=== PATIENT | male | born 1945 | race Hispanic/Latino ===

== ENCOUNTER 2017-12-26 11:00 | Outpatient (CLI) | payer MEDICARE, OTHER ==
[2017-12-26 12:21] LABS: Blood Urea Nitrogen 12 mg/dL (9-20)
--- NOTE | 2017-12-26 16:19 | Cat Scan Report ---
FINAL REPORT EXAM: CT ABDOMEN PELVIS W CON HISTORY: COLON CANCER TECHNIQUE: CT examination of the ABDOMEN after IV contrast CT examination of the PELVIS after IV contrast PRIORS: None. FINDINGS: Degenerative change regional skeleton. No acute fracture. No CT evidence of significant osseous lesion. Left L5 spondylolysis without evidence of spondylolisthesis. No evidence of liver lesion. Nonspecific surgical clips adjacent to the posterior right liver margin. Gallbladder not visualized. Slight prominence of the common bile duct may reflect reservoir effect after cholecystectomy. Diameter 10 mm. Normal-appearing adrenals, pancreas, and spleen. Intact normal caliber abdominal aorta with moderate to severe calcified and noncalcified atherosclerotic plaque. Plaque extends into the aortic branches. Normal caliber IVC. Nonspecific, smoothly marginated, simple appearing, low density bilateral renal lesions are statistically most likely cysts. Bilateral renal hilar calcification most likely reflects atherosclerosis. Staghorn like calculus left renal lower pole measures approximately 10 x 16 mm. Nonspecific slight left hydronephrosis and left ureteral distention diffusely. No CT evidence of left ureteral calculus. No left renal excretion delay. Nonspecific trace free fluid adjacent to the posterior right liver very small fat containing umbilical hernia. No inguinal hernia. No retroperitoneal adenopathy. No mesenteric mass. Normal-appearing stomach and duodenum. No small bowel distention in the abdomen and pelvis. No pelvic free fluid. Normal-appearing rectum. No definite prostate or seminal vesicle abnormality. Nonspecific diffuse mural thickening in the urinary bladder. Moderate sigmoid diverticulosis. Slight diffuse sigmoid colon mural thickening is nonspecific. No adjacent inflammatory change. No gross ascites, free air, or colonic distention. Normal-appearing cecum, terminal ileum, and appendix. There are 2 short segments of luminal narrowing in the region the transverse colon. Proximal involvement appears to be associated with slight mural thickening and is 2.5 cm long. Distal involvement without mural thickening is 5 mm long. These may be artifact of peristalsis. Differential includes postoperative scar, inflammation, infection, and/or apple-core neoplasm. IMPRESSION: Two short segments of luminal narrowing in the transverse colon. These may be artifact of peristalsis. Proximal "lesion" appears to contain mural thickening and is 2.5 cm long. Differential includes postoperative scar, inflammation, infection, and/or apple-core neoplastic Moderate sigmoid diverticulosis. Slight diffuse mural thickening in this region may be scarring from prior diverticulitis. Differential includes slight acute diverticulitis without adjacent inflammatory change Left L5 spondylolysis without evidence of spondylolisthesis 10 x 16 mm staghorn like calculus in left renal lower pole nonspecific slight diffuse left hydronephrosis without CT evidence of ureteral calculus Slight diffuse mural thickening in urinary bladder may be from outlet obstruction. Differential includes cystitis
--- NOTE | 2017-12-26 16:26 | Cat Scan Report ---
FINAL REPORT EXAM: CT CHEST W CON HISTORY: COLON CANCER TECHNIQUE: CT examination of the chest after IV contrast PRIORS: AP CT 12/26/2017 FINDINGS: Please see same day AP CT report for abdominal findings. Normal cardiac size without pericardial effusion. Intact normal caliber thoracic aorta. Normal-appearing esophagus. No hilar mass or mediastinal adenopathy. The visible pulmonary arteries are diffusely patent. No acute fracture or significant osseous lesion. No pneumothorax or pleural effusion. No focal pulmonary consolidation. Scattered slight pulmonary emphysema. No evidence of lung nodule or mass. IMPRESSION: No evidence of acute cardiopulmonary disease or mass/adenopathy Slight pulmonary emphysema
== END 2017-12-26 11:01 | disposition home or self-care (01) ==
LOC: CT 11:00
PROVIDERS: ATTEND Internal Medicine Hematology & Oncology
DX: C18.3 Malignant neoplasm of hepatic flexure (principal); K57.90 Diverticulosis of intestine, part unspecified, without perforation or abscess without bleeding; N30.90 Cystitis, unspecified without hematuria; J43.9 Emphysema, unspecified; Z85.038 Personal history of other malignant neoplasm of large intestine; Z88.6 Allergy status to analgesic agent
CPT/HCPCS: 36415; 71260; 74177; 82565; 84520; Q9967

== ENCOUNTER 2018-03-28 06:05 | Day surgery (SDC) | payer MEDICARE, OTHER ==
[2018-03-28] MEDS ORDERED: NACL BACTERIOSTATIC INFILTRATI ONE (06:15)
[2018-03-28] MEDS ORDERED: LACTATED RINGERS 1,000 ML IV SCH (07:00)
[2018-03-28 07:02] LABS: Hematocrit 35.8 % (35.5-45.6); Hemoglobin 11.5 gm/dl (11.8-15.2); Mean Corpuscular HGB Conc 32 % (32-34); Mean Corpuscular Hemoglobin 29 pg (28-32); Mean Corpuscular Volume 91 fl (84-94); Red Blood Count 3.92 M/mm3 (3.65-5.03); Red Cell Distribution Width 29.2 % (13.2-15.2)
[2018-03-28] MEDS ORDERED: PROVENTIL IH PRN (07:12)
[2018-03-28] MEDS ORDERED: SUBLIMAZE IV PRN (07:17)
--- NOTE | 2018-03-28 07:17 | Anesthesia Consultation ---
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) COPD: Yes (daily anoro and prn albuterol) Home Oxygen Therapy: No Hx Sleep Apnea: No (ESTEFANIA PRE SCREEN HIGH RISK) - Cardiovascular System Hx Hypertension: Yes (took antihypertensives this morning) Hx Coronary Artery Disease: Yes Hx Heart Attack/AMI: No Hx Percutaneous Transluminal Coronary Angioplasty (PTCA): No Hx Cardia Arrhythmia: No - Central Nervous System Hx Neuromuscular Disorder: No (peripheral neuropathy) Hx Seizures: No CVA: No Hx Psychiatric Problems: No - Gastrointestinal Hx Gastroesophageal Reflux Disease: Yes (asymptomatic today) - Endocrine Hx Renal Disease: No Hx Liver Disease: Yes (remote hx colon cancer with liver met s/p lobectomy) Hx Non-Insulin Dependent Diabetes: Yes Hx Thyroid Disease: No - Other Systems Hx Alcohol Use: Yes (RARELY) Hx Substance Use: No Hx Cancer: Yes (hx metastatic colon ca s/p chemo. Port in left arm; not currently used) - Additional Comments Anesthesia Medical History Comments: No hx anesthetic complications. Used anoro this morning but no albuterol as he felt breathing was at baseline. Will administer albuterol neb preop.
--- NOTE | 2018-03-28 07:17 | Anesthesia Day of Surgery ---
Anesthesia Day of Surgery - Day of Surgery Patient Examined: Yes Patient H&P Reviewed: Yes Patient is NPO: Yes Beta Blockers: Yes Pulmonary Clearance: Yes
[2018-03-28] MEDS ORDERED: XYLOCAINE CARDIAC IV ONE (07:38)
[2018-03-28] MEDS ORDERED: DIPRIVAN 10 MG/ML IV ONE (07:38)
[2018-03-28] MEDS ORDERED: ZOFRAN ONE ×2 (07:38→08:42)
[2018-03-28] MEDS ORDERED: SUBLIMAZE ONE (07:38)
[2018-03-28] MEDS ORDERED: ANCEF/STERILE WATER 2 GM/20 ML IV NR (08:00)
[2018-03-28 08:19] LABS: Anisocytosis 2+; Basophils % (Manual) 0 % (0.0-1.8); Eosinophils % (Manual) 0 % (0.0-4.3); Poikilocytosis 2+; Tear Drop Cells 1+; Total Cells Counted 100
[2018-03-28 08:20] LABS: Helmet Cells Few; Hypochromasia 2+; Ovalocytes 1+; Schistocytes Rare
[2018-03-28 08:23] LABS: Dimorphic RBC Yes; Large Platelets Few; Platelet Count 139 K/mm3 (140-440); Platelet Estimate Appears Decreased
--- NOTE | 2018-03-28 08:37 | Post Operative Note ---
Date of procedure: 03/28/18 Pre-op diagnosis: L renal stone Post-op diagnosis: same Findings: as above Procedure: L ESWL Anesthesia: FERNANDO Surgeon: RICARDO OLIVIA Estimated blood loss: none Pathology: none Condition: stable Disposition: PACU
--- NOTE | 2018-03-28 08:38 | Discharge Summary ---
Short Stay Discharge Plan Activity: other (no straining ) Weight Bearing Status: Full Weight Bearing Diet: low fat, low cholesterol, low salt Special Instructions: other (inc fluids ) Follow up with: MANJINDER HANNON MD [Primary Care Provider] - 7 Days RICARDO OLIVIA MD [Staff Physician] - 7 Days
[2018-03-28] MEDS ORDERED: DECADRON ONE (08:42)
[2018-03-28] MEDS ORDERED: ROBINUL ONE (08:42)
--- NOTE | 2018-03-28 12:09 | Operative Report ---
PREOPERATIVE DIAGNOSIS: Large left renal stone. POSTOPERATIVE DIAGNOSIS: Large left renal stone. PROCEDURE: In situ left lithotripsy. SURGEON: Ehsan Phelps MD ANESTHESIA: General. FINDINGS: This gentleman has a 1.5 cm lower pole left renal stone. He now presents for lithotripsy. There is another fragment in the small luis. DESCRIPTION OF PROCEDURE: The patient was brought to the operating room and placed on the operating table. Following induction of anesthesia, stone was well localized, both in the AP and oblique images. Shocks were begun at 1 kV. Renal pause was carried out. A total of 2500 shocks were given, maximum of 8 kV. The patient tolerated the procedure well. There was definitely less density in the stone, but the stone was still quite prominent. There was no stone that was seen going down the ureter, so we decided not to place the stent. I suspect he may need percutaneous nephrolithotomy to get rid of the stone. He is 72 and he will have to decide if he wants more invasive procedures. We decided not to do cystoscopy. I had explained this to his and brought to recovery in stable condition. JOB# [id number] BEVERLY/TERRANCE
--- NOTE | 2018-03-28 12:29 | Post Anesthesia Evaluation ---
- Post Anesthesia Evaluation Patient Participated: Yes Airway Patent: Yes Stable Respiratory Function: Yes Nausea/Vomiting: No Temp > 96.8F: Yes Pain Manageable: Yes Adequeate Hydration: Yes Anesthesia Complications: No
[2018-03-28 14:17] VITALS: BP 104/58
== END 2018-03-28 06:06 | disposition home or self-care (01) ==
LOC: OR 06:05
PROVIDERS: ATTEND Urology
DX: N20.0 Calculus of kidney (principal); E11.42 Type 2 diabetes mellitus with diabetic polyneuropathy; G62.9 Polyneuropathy, unspecified; I25.10 Atherosclerotic heart disease of native coronary artery without angina pectoris; E78.00 Pure hypercholesterolemia, unspecified; I10 Essential (primary) hypertension; F17.210 Nicotine dependence, cigarettes, uncomplicated; J43.9 Emphysema, unspecified; K21.9 Gastro-esophageal reflux disease without esophagitis; Z88.5 Allergy status to narcotic agent; Z91.041 Radiographic dye allergy status; Z79.899 Other long term (current) drug therapy; Z79.82 Long term (current) use of aspirin; Z98.890 Other specified postprocedural states; Z98.49 Cataract extraction status, unspecified eye; Z79.01 Long term (current) use of anticoagulants; Z86.2 Personal history of diseases of the blood and blood-forming organs and certain disorders involving the immune mechanism; Z85.038 Personal history of other malignant neoplasm of large intestine
CPT/HCPCS: 36415; 50590; 82803; 82962; 85007; 85025; J0690; J1100; J2001; J2405; J2590; J2704; J3010; J7120

== ENCOUNTER 2019-03-03 06:45 | Inpatient (IN) | payer MEDICARE, OTHER ==
[2019-03-03] MEDS ORDERED: methylPREDNISolone Sod Succinate 125 MG/2 ML INJ IV ONE (06:51)
[2019-03-03] MEDS ORDERED: ALBUTEROL 2.5 MG/3 ML NEBU IH ONE (06:56)
[2019-03-03] MEDS ORDERED: IPRATROPIUM 0.02% NEBU 2.5 ML IH ONE (06:56)
--- NOTE | 2019-03-03 06:56 | Emergency Department Report ---
HPI - General Time Seen by Provider: 03/03/19 06:50 - HPI HPI: 73-year-old C male presents to the emergency department via EMS from home as unresponsive. EMS says that he has a elderly who was only able to provide information that he has a history of COPD and myelodysplastic syndrome. He also has a previous history of colon cancer with liver metastasis, but it is unknown whether or not this is in remission. The patient did present altered and unresponsive. However within 5 minutes of arrival the patient began talking and became more responsive, although still does display some confusion. Patient admits to having oxygen at home for his COPD but has not been using it. He is a tobacco smoker but denies any illicit drug use. Patient initially had a room air pulse ox in the 50s that went up to close to 100% with some bag valve ventilation. PCP: Dr Margaret Matthew: Dr Anaya Heme/Onc: Dr Ag DONG Past Medical Hx - Past Medical History Hx Hypertension: Yes (took antihypertensives this morning) Hx Heart Attack/AMI: No Hx Diabetes: Yes (NO MEDS) Hx GERD: Yes Hx Liver Disease: Yes (remote hx colon cancer with liver met s/p lobectomy) Hx Renal Disease: No Hx Seizures: No Hx Kidney Stones: Yes Hx COPD: Yes (daily anoro and prn albuterol) Hx HIV: No - Social History Smoking Status: Current Every Day Smoker - Medications Home Medications: Home Medications Medication Instructions Recorded Confirmed Last Taken Type Aspirin EC [Aspirin Enteric Coated 81 mg PO QDAY 08/05/15 03/03/19 10 Days Ago History TAB] ~03/18/18 Metoprolol [Lopressor] 100 mg PO DAILY 08/05/15 03/19/18 03/28/18 04:30 History Pravastatin Sodium [Pravastatin] 20 mg PO QHS 08/05/15 03/19/18 03/28/18 04:30 History amLODIPine [Norvasc] 5 mg PO DAILY 08/05/15 03/03/19 03/28/18 04:30 History ALBUTEROL Inhaler(NF) [VENTOLIN 2 puff IH QDAY PRN 03/19/18 03/03/19 Unknown History Inhaler(NF)] Fluticasone [Flonase] 1 spray NS QDAY 03/19/18 03/28/18 03/27/18 History Ubklhedr-Mcenowq-Izxi 149-Hyal 1,500 mg PO BID 03/19/18 03/03/19 10 Days Ago History [Glucosamine-Chondr Complex Tab] ~03/18/18 Multivit-Min/FA/Lycopen/Lutein 1 each PO DAILY 03/19/18 03/19/18 10 Days Ago History [Centrum Silver Tablet] ~03/18/18 Jarales-3 Fatty Acids/Fish Oil [Fish 1 each PO DAILY 03/19/18 03/19/18 10 Days Ago History Oil 1,000 mg Capsule] ~03/18/18 Umeclidinium Brm/Vilanterol Tr 1 each IH DAILY 03/19/18 03/19/18 03/28/18 04:30 History [Anoro Ellipta 62.5-25 Mcg INH] Metoprolol Succinate [Toprol Xl] 100 mg PO 03/03/19 Unknown History Multivit-Min/FA/Lycopen/Lutein 03/03/19 Unknown History [Centrum Silver Tablet] ED Review of Systems ROS: Stated complaint: GUERRERO Other details as noted in HPI Comment: All other systems reviewed and negative Constitutional: denies: chills, fever Eyes: denies: eye pain, vision change ENT: denies: ear pain, throat pain Respiratory: shortness of breath, SOB with exertion, SOB at rest, wheezing Cardiovascular: denies: chest pain, palpitations Gastrointestinal: denies: abdominal pain, vomiting Neurological: confusion. denies: headache Physical Exam - Physical Exam Physical Exam: GENERAL: The patient is ill-appearing. HENT: Normocephalic. Atraumatic. Patient has moist mucous membranes. EYES: Extraocular motions are intact. Pupils equal reactive to light bilaterally. NECK: Supple. Trachea is midline. CHEST/LUNGS: Coarse breath sounds were the chest. There is tachypnea with some accessory muscle use. There is respiratory distress noted. HEART/CARDIOVASCULAR: Regular. There is mild tachycardia. There is no murmur. ABDOMEN: Abdomen is soft, nontender. Patient has normal bowel sounds. There is no abdominal distention. SKIN: Skin is warm and dry. NEURO: Patient is awake and confused. Nonverbal. Withdraws from painful stimuli. Not following commands. MUSCULOSKELETAL: There is no tenderness or deformity. There is no evidence of acute injury. ED Course - Consultations Consultation #1: 03/03/19 08:42 I spoke to the screw driver operator on-call, Dr. Mckenzie, who is aware of the patient's ischemic changes on EKG and the elevated troponin, along with his renal insufficiency, anemia and thrombocytopenia. The cardiology service will see the patient as a consult. 03/03/19 14:32 It turns out the patient follows with Dr Ramsay of [facility]. [facility] made aware and consult switched. ED Medical Decision Making - Lab Data Result diagrams: 03/03/19 06:58 03/03/19 06:58 - EKG Data -: EKG Interpreted by Me EKG shows normal: sinus rhythm, axis, intervals, QRS complexes, ST-T waves (st depressions throughout most leads. No STEMI) Rate: tachycardia (116 bpm) - EKG Data When compared to previous EKG there are: previous EKG unavailable Interpretation: other (sinus tachycardia at 116 bpm, PVCs, ST depressions throughout most leads but no ST elevation) - Radiology Data Radiology results: report reviewed, image reviewed interpreted by me: Chest x-ray shows some pulmonary vascular congestion, bilateral basilar pleural effusions and interstitial edema. CT HEAD WITHOUT CONTRAST INDICATION / CLINICAL INFORMATION: Altered mental status.. Colon cancer. TECHNIQUE: Axial imaging performed from the skull apex through the skull base without the use of contrast. Sagittal and coronal ref ormatted images. All CT scans at this location are performed using CT dose reduction for ALARA by means of automated exposure control. COMPARISON: None available. FINDINGS: CEREBRAL PARENCHYMA: Mild cortical atrophy and nonspecific chronic white matter changes are identified which are likely appropriate for this patient's age. The easton-white interface is well-defined. No abnormal density or acute territorial infarct is identified. No evidence for brain metastasis given no IV contrast was administered. HEMORRHAGE: None. EXTRA-AXIAL SPACES: Normal in size and morphology for the patient's age. VENTRICULAR SYSTEM: Normal in size and morphology for the patient's age. MIDLINE SHIFT OR HERNIATION: None. CEREBELLUM / BRAINSTEM: No significant abnormality. CALVARIUM: No significant abnormality. ORBITS: Normal as visualized. PARANASAL SINUSES / MASTOID AIR CELLS: Normal as visualized. SOFT TISSUES of HEAD: No significant abnormality. ADDITIONAL FINDINGS: None. IMPRESSION: No acute intracranial a bnormality. Age-appropriate cortical volume loss and chronic white matter changes. - Medical Decision Making This patient originally was sent in after having an unresponsive episode and did present to the emergency department nonverbal and not following commands. However about 5 minutes into his ED course the patient became more awake, alert and oriented. He does appear to have some respiratory distress with coarse breath sounds, accessory muscle use, tachypnea. He was placed on a BiPAP which did improve his work of breathing. Chest x-ray shows some pulmonary vascular congestion, interstitial edema and some basilar pleural effusions. Patient's labs show a hemoglobin of 6.3 and thrombocytopenia consistent with his myelodysplastic syndrome. 2 units of packed red blood cells have been ordered for transfusion, however the patient has received some Lasix for some diuresis. Patient also appears to have some acute kidney injury, however the patient's says that he does have a history of some chronic kidney disease. EKG did not show any signs of ST elevation GA but he does have some global ischemia with ST depressions throughout most leads. This may be secondary to his respiratory status and previous hypoxia and his symptomatic anemia. The patient will be admitted to the hospital for further evaluation and treatment and was accepted for admission by the hospitalist service. - Differential Diagnosis MDS, Pneumonia, CHF, GA, Dysrythmia Critical Care Time: Yes Critical care time in (mins) excluding proc time.: 35 Critical care attestation.: If time is entered above; I have spent that time in minutes in the direct care of this critically ill patient, excluding procedure time. Critical care time was spent on this patient and doing his initial evaluation, multiple re- evaluations, ordering and interpretation of labs and imaging, discussion with the cardiology service, multiple discussions with the patient and his family. Critical Care Time: 35 minutes ED Disposition Clinical Impression: Symptomatic anemia, Thrombocytopenia, Anemia requiring transfusions, Elevated troponin, Abnormal ECG, Renal insufficiency Acute respiratory failure Qualifiers: Respiratory failure complication: hypoxia Qualified Code(s): J96.01 - Acute respiratory failure with hypoxia Dyspnea Qualifiers: Dyspnea type: shortness of breath Qualified Code(s): R06.02 - Shortness of breath CHF (congestive heart failure) Qualifiers: Heart failure type: unspecified Heart failure chronicity: unspecified Qualified Code(s): I50.9 - Heart failure, unspecified Disposition: 09 OP ADMIT IP TO THIS HOSP Is pt being admited?: Yes Condition: Serious Time of Disposition: 08:38
--- NOTE | 2019-03-03 07:18 | XRay Report ---
Chest single view INDICATION: Chest pain IMPRESSION: Streaky interstitial opacities are present throughout both lungs. The heart size is eva l at this time. Small bilateral pleural effusions are present. Signer Name: Jimbo Rehman MD Signed: 03/03/2019 7:14 AM Workstation Name: [id number]
[2019-03-03] MEDS ORDERED: FUROSEMIDE 20 MG/2 ML INJ IV ONE (07:28)
[2019-03-03 07:38] LABS: Hematocrit 21.1 % (35.5-45.6); Hemoglobin 6.3 gm/dl (11.8-15.2); Mean Corpuscular HGB Conc 30 % (32-34); Mean Corpuscular Volume 106 fl (84-94); Red Blood Count 1.99 M/mm3 (3.65-5.03)
[2019-03-03 07:46] LABS: Platelet Count 95 K/mm3 (140-440)
[2019-03-03] MEDS ORDERED: SODIUM CHLORIDE 0.9% 500 ML 500 ML IV ONE (07:49)
[2019-03-03 07:55] LABS: Albumin 4.2 g/dL (3.9-5); Calcium 8.7 mg/dL (8.4-10.2)
[2019-03-03 08:13] LABS: Chol/HDL Ratio 2.23 %
[2019-03-03 08:28] LABS: Anisocytosis 3+; Eosinophils % (Manual) 0 % (0.0-4.3); Poikilocytosis 2+; Total Cells Counted 100
[2019-03-03 08:29] LABS: Large Platelets Few; Ovalocytes 1+; Platelet Estimate Consistent w Auto; Schistocytes Rare; Tear Drop Cells 1+
--- NOTE | 2019-03-03 08:46 | Cat Scan Report ---
CT HEAD WITHOUT CONTRAST INDICATION / CLINICAL INFORMATION: Altered mental status.. Colon cancer. TECHNIQUE: Axial imaging performed from the skull apex through the skull base without the use of cont rast. Sagittal and coronal reformatted images. All CT scans at this location are performed using CT dose reduction for ALARA by means of automated exposure control. COMPARISON: None available. FINDINGS: CEREBRAL PARENCHYMA: Mild cortical atrophy and nonspecific chronic white matter changes are identifie d which are likely appropriate for this patient's age. The easton-white interface is well-defined. No a bnormal density or acute territorial infarct is identified. No evidence for brain metastasis given no IV contrast was administered. HEMORRHAGE: None. EXTRA-AXIAL SPACES: Normal in size and morphology for the patient's age. VENTRICULAR SYSTEM: Normal in size and morphology for the patient's age. MIDLINE SHIFT OR HERNIATION: None. CEREBELLUM / BRAINSTEM: No significant abnormality. CALVARIUM: No significant abnormality. ORBITS: Normal as visualized. PARANASAL SINUSES / MASTOID AIR CELLS: Normal as visualized. SOFT TISSUES of HEAD: No significant abnormality. ADDITIONAL FINDINGS: None. IMPRESSION: No acute intracranial abnormality. Age-appropriate cortical volume loss and chronic white matter mcfarland ges. Signer Name: Ranulfo Olvera Jr, MD Signed: 03/03/2019 8:42 AM Workstation Name: [id number]
[2019-03-03] MEDS ORDERED: SODIUM CHLORIDE 0.9% 250ML 250 ML ONE (10:57)
--- NOTE | 2019-03-03 15:13 | Consultation ---
History of Present Illness Consult date: 03/03/19 Requesting physician: DORIS WILLS Consult reason: elevated troponin, other (abn ekg) History of present illness: The pt is a 73-year-old male with a past medical history of HTN, DM, COPD (followed by Dr. Anaya), ongoing tobacco use, colon cancer with mets to liver in 2001, s/p liver resection, myelodysplastic syndrome diagnosed 1 month ago, followed by Dr. Luong. He is followed in our office by Dr. Ramsay. He presented to the emergency department via EMS from home with c/o respiratory distress. Pt has been experiencing progressively worsening SOB and wheezing for the past day. He apparently had an episode of unresponsiveness and thus EMS was called. Per ED record, the patient did present altered and unresponsive. However within 5 minutes of arrival the patient began talking and became more responsive. On eval uation, pt appears alert and oriented. Patient admits to having oxygen at home for his COPD but has not been using it. He is a tobacco smoker but denies any illicit drug use. Patient initially had a room air pulse ox in the 50s that went up to close to 100% with some bag valve ventilation. Pt is currently on O2 via venti mask. Pt denies any chest pain, palpitations, n/v, diaphoresis. He is noted to have elevated troponon and ECG with diffuse ST depressions and thus cardiology has been consulted. Labwork is significant for H/H 6.3/21.1, plt 95, elevated DDimer, BUN/Cr 30/1.8. CXR with some pulmonary edema. Head CT with NAF. Echo done 07/2010 showed EF 50-55%, mild LVH, mild MR, mild AR, trivial TR. Past History Past Medical History: other (as per HPI) Medications and Allergies Allergies Allergy/AdvReac Type Severity Reaction Status Date / Time morphine AdvReac HALLUCINATI Verified 03/19/18 16:36 ONS IVP DYE AdvReac Hives Uncoded 03/19/18 16:36 Home Medications Medication Instructions Recorded Confirmed Last Taken Type Aspirin EC [Aspirin Enteric Coated 81 mg PO QDAY 08/05/15 03/03/19 10 Days Ago History TAB] ~03/18/18 Metoprolol [Lopressor] 100 mg PO DAILY 08/05/15 03/19/18 03/28/18 04:30 History Pravastatin Sodium [Pravastatin] 20 mg PO QHS 08/05/15 03/19/18 03/28/18 04:30 History amLODIPine [Norvasc] 5 mg PO DAILY 08/05/15 03/03/19 03/28/18 04:30 History ALBUTEROL Inhaler(NF) [VENTOLIN 2 puff IH QDAY PRN 03/19/18 03/03/19 Unknown History Inhaler(NF)] Fluticasone [Flonase] 1 spray NS QDAY 03/19/18 03/28/18 03/27/18 History Dytilvuc-Mldsvir-Jjze 149-Hyal 1,500 mg PO BID 03/19/18 03/03/19 10 Days Ago History [Glucosamine-Chondr Complex Tab] ~03/18/18 Multivit-Min/FA/Lycopen/Lutein 1 each PO DAILY 03/19/18 03/19/18 10 Days Ago History [Centrum Silver Tablet] ~03/18/18 [place]-3 Fatty Acids/Fish Oil [Fish 1 each PO DAILY 03/19/18 03/19/18 10 Days Ago History Oil 1,000 mg Capsule] ~03/18/18 Umeclidinium Brm/Vilanterol Tr 1 each IH DAILY 03/19/18 03/19/18 03/28/18 04:30 History [Anoro Ellipta 62.5-25 Mcg INH] Metoprolol Succinate [Toprol Xl] 100 mg PO 03/03/19 Unknown History Multivit-Min/FA/Lycopen/Lutein 03/03/19 Unknown History [Centrum Silver Tablet] Review of Systems Constitutional: no fever, no chills, no sweats Ears, nose, mouth and throat: no ear pain, no nose pain, no sinus pressure, no sinus pain Cardiovascular: shortness of breath, dyspnea on exertion, no chest pain, no orthopnea, no palpitations, no rapid/irregular heart beat, no lightheadedness, no high blood pressure Respiratory: cough, shortness of breath, dyspnea on exertion, wheezing, no congestion, no pain on inspiration Gastrointestinal: no abdominal pain, no nausea, no vomiting, no diarrhea, no constipation, no change in bowel habits Genitourinary Male: no dysuria, no hematuria, no flank pain, no discharge, no urinary frequency, no urinary hesitancy Musculoskeletal: no neck stiffness, no neck pain Integumentary: no rash, no pruritis, no redness, no sores, no wounds Neurological: no head injury, no paralysis, no weakness, no parathesias, no numbness, no tingling, no seizures Psychiatric: no anxiety Endocrine: no cold intolerance, no heat intolerance Hematologic/Lymphatic: no easy bruising, no easy bleeding Allergic/Immunologic: no urticaria, no wheezing Physical Examination Vital Signs Pulse Resp Pulse Ox 116 H 26 H 100 03/03/19 06:50 03/03/19 06:50 03/03/19 06:50 General appearance: mild distress (sob) HEENT: Positive: PERRL, Normocephaly, Mucus Membranes Moist Neck: Positive: neck supple, trachea midline Cardiac: Positive: Reg Rate and Rhythm, S1/S2 Lungs: Positive: Decreased Breath Sounds, Wheezes, Rhonchi, Oxygen Neuro: Positive: Grossly Intact Abdomen: Negative: Tender Skin: Negative: Rash Musculoskeletal: No Pain Extremities: Present: edema (trace BLE) Results 03/03/19 06:58 03/03/19 06:58 Cardiac Enzymes 03/03/19 Range/Units 06:58 AST 55 H (5-40) units/L Lipids 03/03/19 Range/Units 06:58 Triglycerides 46 (2-149) mg/dL Cholesterol 114 (50-199) mg/dL HDL Cholesterol 51 (40-59) mg/dL Cholesterol/HDL Ratio 2.23 % CBC 03/03/19 Range/Units 06:58 WBC 5.0 (4.5-11.0) K/mm3 RBC 1.99 L (3.65-5.03) M/mm3 Hgb 6.3 L (11.8-15.2) gm/dl Hct 21.1 L (35.5-45.6) % Plt Count 95 L (140-440) K/mm3 Comprehensive Metabolic Panel 03/03/19 Range/Units 06:58 Sodium 141 (137-145) mmol/L Potassium 4.6 (3.6-5.0) mmol/L Chloride 99.6 (98-107) mmol/L Carbon Dioxide 15 L (22-30) mmol/L BUN 30 H (9-20) mg/dL Creatinine 1.8 H (0.8-1.5) mg/dL Glucose 259 H (75-100) mg/dL Calcium 8.7 (8.4-10.2) mg/dL AST 55 H (5-40) units/L ALT 36 (7-56) units/L Alkaline Phosphatase 62 (35-129) units/L Total Protein 7.0 (6.3-8.2) g/dL Albumin 4.2 (3.9-5) g/dL - Imaging and Cardiology Echo: pending, report reviewed (07/2010 showed EF 50-55%, mild LVH, mild MR, mild AR, trivial TR. ) EKG: report reviewed, image reviewed EKG interpretations - Telemetry EKG Rhythm: Sinus Rhythm - EKG Sinus rhythms and dysrhythmias: sinus rhythm Repolarization changes or abnormalities: ST or T wave suggestive of ischemia Assessment and Plan Pt is noted to have NSTEMI and abnormal ECG in setting of MDS, severe anemia, thrombocytopenia, acute HF and [place]LE. Pt denies any occurrence of chest pain. No heparin or DAPT at this time due to anemia and thrombocytopenia. Will cont to trend Kenisha, f/u ECG in AM and obtain echo. Can consider ischemic evaluation once medically stabilized and H/H improved. Initiate low dose lopressor (beta selective) and statin. Pt is receiving PRBC tx per primary. Cont with cautious diuresis in setting of ORVILLE. F/u CBC and CMP in AM. Heme/onc and nephrology have been consulted. Recommend pulmonary consultation per primary team, as well. Further recs to follow per hospital course. The patient has been seen in conjunction with Dr. Vaughn Montejo who agrees with the assessment and plan of care. - Patient Problems (1) Acute and chronic respiratory failure Current Visit: Yes Status: Acute (2) COPD (chronic obstructive pulmonary disease) Current Visit: Yes Status: Chronic (3) Symptomatic anemia Current Visit: Yes Status: Acute (4) Altered mental status Current Visit: Yes Status: Resolved (5) Thrombocytopenia Current Visit: Yes Status: Acute (6) Acute heart failure Current Visit: Yes Status: Acute (7) NSTEMI (non-ST elevated myocardial infarction) Current Visit: Yes Status: Acute (8) Abnormal ECG Current Visit: Yes Status: Acute (9) ORVILLE (acute kidney injury) Current Visit: Yes Status: Acute (10) Diabetes Current Visit: Yes Status: Chronic (11) Myelodysplastic syndrome Current Visit: Yes Status: Chronic (12) History of colon cancer Current Visit: Yes Status: Chronic (13) Tobacco use Current Visit: Yes Status: Chronic
[2019-03-03] MEDS ORDERED: ONDANSETRON 4 MG/2 ML INJ IV PRN (15:40)
[2019-03-03] MEDS ORDERED: ACETAMINOPHEN 325 MG TAB PO PRN (15:40)
--- NOTE | 2019-03-03 15:40 | History and Physical Report ---
History of Present Illness Date of examination: 03/03/19 Date of admission: 03/03/19 08:38 Chief complaint: sob History of present illness: 73-year-old male presents to the emergency department via EMS from home as unresponsive. EMS says that he has a elderly who was only able to provide information that he has a history of COPD and myelodysplastic syndrome. He also has a previous history of colon cancer with liver metastasis, but it is unknown whether or not this is in remission. The patient did present altered and unresponsive per ER physician. However within 5 minutes of arrival the patient began talking and became more responsive, although still does displayed some confusion. Upon mu eval he was awake and alert with conversational dyspnea but appropriate. Family at bedside. Patient admits to having oxygen at home for his COPD but has not been using it. He is a tobacco smoker but denies any illicit drug use. Patient initially had a room air pulse ox in the 50s that went up to close to 100% with some bag valve ventilation. He denies CP Past History Past Medical History: COPD, diabetes, GERD, hypertension, other (liver dz) Past Surgical History: No surgical history Social history: smoking Family history: no significant family history Medications and Allergies Allergies Allergy/AdvReac Type Severity Reaction Status Date / Time morphine AdvReac HALLUCINATI Verified 03/19/18 16:36 ONS IVP DYE AdvReac Hives Uncoded 03/19/18 16:36 Home Medications Medication Instructions Recorded Confirmed Last Taken Type Aspirin EC [Aspirin Enteric Coated 81 mg PO QDAY 08/05/15 03/03/19 10 Days Ago History TAB] ~03/18/18 Metoprolol [Lopressor] 100 mg PO DAILY 08/05/15 03/19/18 03/28/18 04:30 History Pravastatin Sodium [Pravastatin] 20 mg PO QHS 08/05/15 03/19/18 03/28/18 04:30 History amLODIPine [Norvasc] 5 mg PO DAILY 08/05/15 03/03/19 03/28/18 04:30 History ALBUTEROL Inhaler(NF) [VENTOLIN 2 puff IH QDAY PRN 03/19/18 03/03/19 Unknown History Inhaler(NF)] Fluticasone [Flonase] 1 spray NS QDAY 03/19/18 03/28/18 03/27/18 History Tstidvas-Kvojmbm-Wiyl 149-Hyal 1,500 mg PO BID 03/19/18 03/03/19 10 Days Ago History [Glucosamine-Chondr Complex Tab] ~03/18/18 Multivit-Min/FA/Lycopen/Lutein 1 each PO DAILY 03/19/18 03/19/18 10 Days Ago History [Centrum Silver Tablet] ~03/18/18 [place]-3 Fatty Acids/Fish Oil [Fish 1 each PO DAILY 03/19/18 03/19/18 10 Days Ago History Oil 1,000 mg Capsule] ~03/18/18 Umeclidinium Brm/Vilanterol Tr 1 each IH DAILY 03/19/18 03/19/18 03/28/18 04:30 History [Anoro Ellipta 62.5-25 Mcg INH] Metoprolol Succinate [Toprol Xl] 100 mg PO 03/03/19 Unknown History Multivit-Min/FA/Lycopen/Lutein 03/03/19 Unknown History [Centrum Silver Tablet] Review of Systems All systems: negative Exam - Constitutional Vitals: Temp Pulse Resp BP Pulse Ox 98.1 F 107 H 18 128/62 99 03/03/19 13:27 03/03/19 14:47 03/03/19 14:47 03/03/19 14:47 03/03/19 14:47 General appearance: Present: mild distress, well-nourished - EENT Eyes: Present: PERRL ENT: hearing intact, clear oral mucosa - Neck Neck: Present: supple, normal ROM - Respiratory Respiratory effort: normal Respiratory: bilateral: CTA - Cardiovascular Heart Sounds: Present: S1 & S2. Absent: rub, click - Extremities Extremities: pulses symmetrical, No edema Peripheral Pulses: within normal limits - Abdominal General gastrointestinal: Present: soft, non-tender, non-distended, normal bowel sounds Male genitourinary: Present: normal - Integumentary Integumentary: Present: clear, warm, dry - Musculoskeletal Musculoskeletal: gait normal, strength equal bilaterally - Psychiatric Psychiatric: appropriate mood/affect, intact judgment & insight - Neurologic Neurologic: CNII-XII intact, moves all extremities Results - Labs CBC & Chem 7: 03/03/19 06:58 03/03/19 06:58 Labs: Laboratory Last Values WBC 5.0 K/mm3 (4.5-11.0) 03/03/19 06:58 RBC 1.99 M/mm3 (3.65-5.03) L 03/03/19 06:58 Hgb 6.3 gm/dl (11.8-15.2) L 03/03/19 06:58 Hct 21.1 % (35.5-45.6) L 03/03/19 06:58 MCV 106 fl (84-94) H 03/03/19 06:58 MCH 31 pg (28-32) 03/03/19 06:58 MCHC 30 % (32-34) L 03/03/19 06:58 RDW 30.0 % (13.2-15.2) H 03/03/19 06:58 Plt Count 95 K/mm3 (140-440) L 03/03/19 06:58 Add Manual Diff Complete 03/03/19 06:58 Total Counted 100 03/03/19 06:58 Seg Neuts % (Manual) 66.0 % (40.0-70.0) 03/03/19 06:58 Band Neutrophils % 4.0 % 03/03/19 06:58 Lymphocytes % (Manual) 25.0 % (13.4-35.0) 03/03/19 06:58 Reactive Lymphs % (Man) 0 % 03/03/19 06:58 Monocytes % (Manual) 3.0 % (0.0-7.3) 03/03/19 06:58 Eosinophils % (Manual) 0 % (0.0-4.3) 03/03/19 06:58 Basophils % (Manual) 2.0 % (0.0-1.8) H 03/03/19 06:58 Metamyelocytes % 0 % 03/03/19 06:58 Myelocytes % 0 % 03/03/19 06:58 Promyelocytes % 0 % 03/03/19 06:58 Blast Cells % 0 % 03/03/19 06:58 Nucleated RBC % 7.0 % (0.0-0.9) H 03/03/19 06:58 Seg Neutrophils # Man 0.0 K/mm3 (1.8-7.7) L 03/03/19 06:58 Band Neutrophils # 0.0 K/mm3 03/03/19 06:58 Lymphocytes # (Manual) 0.0 K/mm3 (1.2-5.4) L 03/03/19 06:58 Abs React Lymphs (Man) 0.0 K/mm3 03/03/19 06:58 Monocytes # (Manual) 0.0 K/mm3 (0.0-0.8) 03/03/19 06:58 Eosinophils # (Manual) 0.0 K/mm3 (0.0-0.4) 03/03/19 06:58 Basophils # (Manual) 0.0 K/mm3 (0.0-0.1) 03/03/19 06:58 Metamyelocytes # 0.0 K/mm3 03/03/19 06:58 Myelocytes # 0.0 K/mm3 03/03/19 06:58 Promyelocytes # 0.0 K/mm3 03/03/19 06:58 Blast Cells # 0.0 K/mm3 03/03/19 06:58 WBC Morphology Not Reportable 03/03/19 06:58 Hypersegmented Neuts Not Reportable 03/03/19 06:58 Hyposegmented Neuts Not Reportable 03/03/19 06:58 Hypogranular Neuts Not Reportable 03/03/19 06:58 Smudge Cells Not Reportable 03/03/19 06:58 Toxic Granulation Not Reportable 03/03/19 06:58 Toxic Vacuolation Not Reportable 03/03/19 06:58 Dohle Bodies Not Reportable 03/03/19 06:58 Pelger-Huet Anomaly Not Reportable 03/03/19 06:58 Traci Rods Not Reportable 03/03/19 06:58 Platelet Estimate Consistent w auto 03/03/19 06:58 Clumped Platelets Not Reportable 03/03/19 06:58 Plt Clumps, EDTA Not Reportable 03/03/19 06:58 Large Platelets Few 03/03/19 06:58 Giant Platelets Not Reportable 03/03/19 06:58 Platelet Satelliting Not Reportable 03/03/19 06:58 Plt Morphology Comment Not Reportable 03/03/19 06:58 RBC Morphology Not Reportable 03/03/19 06:58 Dimorphic RBCs Not Reportable 03/03/19 06:58 Polychromasia Not Reportable 03/03/19 06:58 Hypochromasia Not Reportable 03/03/19 06:58 Poikilocytosis 2+ 03/03/19 06:58 Anisocytosis 3+ 03/03/19 06:58 Microcytosis Not Reportable 03/03/19 06:58 Macrocytosis Not Reportable 03/03/19 06:58 Spherocytes Not Reportable 03/03/19 06:58 Pappenheimer Bodies Not Reportable 03/03/19 06:58 Sickle Cells Not Reportable 03/03/19 06:58 Target Cells Not Reportable 03/03/19 06:58 Tear Drop Cells 1+ 03/03/19 06:58 Ovalocytes 1+ 03/03/19 06:58 Helmet Cells Not Reportable 03/03/19 06:58 [place] Bodies Not Reportable 03/03/19 06:58 [place] Rings Not Reportable 03/03/19 06:58 [place] Cells Not Reportable 03/03/19 06:58 Bite Cells Not Reportable 03/03/19 06:58 Crenated Cell Not Reportable 03/03/19 06:58 Elliptocytes 1+ 03/03/19 06:58 Acanthocytes (Spur) Not Reportable 03/03/19 06:58 Rouleaux Not Reportable 03/03/19 06:58 Hemoglobin C Crystals Not Reportable 03/03/19 06:58 Schistocytes Rare 03/03/19 06:58 Malaria parasites Not Reportable 03/03/19 06:58 Benjamin Bodies Not Reportable 03/03/19 06:58 Hem Pathologist Commnt No 03/03/19 06:58 D-Dimer 891.58 ng/mlDDU (0-234) H 03/03/19 06:58 POC ABG pH 7.072 (7.35-7.45) L 03/03/19 06:58 POC ABG pCO2 47.1 (35-45) H 03/03/19 06:58 POC ABG pO2 327 (80-105) H 03/03/19 06:58 POC ABG HCO3 13.7 (22-26 mml/L) 03/03/19 06:58 POC ABG Total CO2 15 (23-27mmol/L) 03/03/19 06:58 POC ABG O2 Sat 100 03/03/19 06:58 POC ABG Base Excess -16 ((-2) - (+3)mmol/L) 03/03/19 06:58 FiO2 100 % 03/03/19 06:58 Sodium 141 mmol/L (137-145) 03/03/19 06:58 Potassium 4.6 mmol/L (3.6-5.0) 03/03/19 06:58 Chloride 99.6 mmol/L (98-107) 03/03/19 06:58 Carbon Dioxide 15 mmol/L (22-30) L 03/03/19 06:58 Anion Gap 31 mmol/L 03/03/19 06:58 BUN 30 mg/dL (9-20) H 03/03/19 06:58 Creatinine 1.8 mg/dL (0.8-1.5) H 03/03/19 06:58 Estimated GFR 37 ml/min 03/03/19 06:58 BUN/Creatinine Ratio 17 % 03/03/19 06:58 Glucose 259 mg/dL (75-100) H 03/03/19 06:58 Calcium 8.7 mg/dL (8.4-10.2) 03/03/19 06:58 Total Bilirubin 0.90 mg/dL (0.1-1.2) 03/03/19 06:58 AST 55 units/L (5-40) H 03/03/19 06:58 ALT 36 units/L (7-56) 03/03/19 06:58 Alkaline Phosphatase 62 units/L (35-129) 03/03/19 06:58 Ammonia 30.0 umol/L (25-60) 03/03/19 06:58 Troponin T 0.118 ng/mL (0.00-0.029) H* 03/03/19 06:58 NT-Pro-B Natriuret Pep 4210 pg/mL (0-900) H 03/03/19 07:25 Total Protein 7.0 g/dL (6.3-8.2) 03/03/19 06:58 Albumin 4.2 g/dL (3.9-5) 03/03/19 06:58 Albumin/Globulin Ratio 1.5 % 03/03/19 06:58 Triglycerides 46 mg/dL (2-149) 03/03/19 06:58 Cholesterol 114 mg/dL (50-199) 03/03/19 06:58 LDL Cholesterol Direct 68 mg/dL (50-130) 03/03/19 06:58 HDL Cholesterol 51 mg/dL (40-59) 03/03/19 06:58 Cholesterol/HDL Ratio 2.23 % 03/03/19 06:58 TSH 1.590 mlU/mL (0.270-4.200) 03/03/19 06:58 Blood Type O POSITIVE 03/03/19 08:40 Antibody Screen Negative 03/03/19 08:40 Crossmatch See Detail 03/03/19 08:40 Assessment and Plan Assessment and plan: Acute hypoxic resp failure. Etiology likely sec heart failure. CXR with bilateral interstitial opacities and elevated BNP. Check Echo Elevated trop. Cards consulted. Check ECHO MDS. Pt with recent dx of MDS and is followed by Ag Godwin. Heme consult ARf. Nephrology consult Anemia. Tansfusee 2 units PRBCs
[2019-03-03] MEDS ORDERED: FUROSEMIDE 40 MG/4 ML INJ IV ONE (17:00)
[2019-03-03] MEDS: HEPARIN 5,000 UNIT/1 ML VIAL SUB-Q SCH (22:28)
[2019-03-03] MEDS: METOPROLOL TARTRATE 25 MG TAB PO SCH (22:31)
[2019-03-04 05:00] LABS: Calcium 8.3 mg/dL (8.4-10.2)
[2019-03-04] MEDS: HEPARIN 5,000 UNIT/1 ML VIAL SUB-Q SCH ×3 (08:06→22:13)
[2019-03-04 10:09] LABS: Hematocrit 22.9 % (35.5-45.6); Hemoglobin 7.6 gm/dl (11.8-15.2); Mean Corpuscular HGB Conc 33 % (32-34); Mean Corpuscular Volume 95 fl (84-94); Red Blood Count 2.43 M/mm3 (3.65-5.03); Red Cell Distribution Width 23.8 % (13.2-15.2)
[2019-03-04 10:49] LABS: Anisocytosis 2+; Band Neutrophils # (Manual) 0.1 K/mm3; Basophils % (Manual) 0 % (0.0-1.8); Eosinophils % (Manual) 0 % (0.0-4.3); Macrocytosis 1+; Ovalocytes 1+; Total Cells Counted 100
[2019-03-04 10:50] LABS: Hypochromasia 1+; Platelet Estimate Consistent w Auto; Schistocytes Rare; Tear Drop Cells Few
[2019-03-04 10:59] LABS: Platelet Count 41 K/mm3 (140-440)
[2019-03-04] MEDS: METOPROLOL TARTRATE 25 MG TAB PO SCH ×2 (11:25→22:14)
--- NOTE | 2019-03-04 13:23 | Progress Note ---
Assessment and Plan Pt's clinical presentation appears c/w NSTEMI type II in setting of MDS, severe anemia, thrombocytopenia and ORV[place]. H/H improving s/p PRBC tx. ECG this AM shows NSR, normalization of ST depressions. Pt denies any occurrence of chest pain. Echo reviewed - EF 50-55%, pseudonormalization, mild AR, mild , mod MR, mod pulm HTN. Cont present conservative cardiac management at this time. Can consider ischemic evaluation once medically stabilized and H/H improved - could be done as OP. Nephrology and heme/onc consultations pending. Recommend pulmonary consultation per primary, as well. The patient has been seen in conjunction with Dr. Vaughn Montejo who agrees with the assessment and plan of care. - Patient Problems (1) Acute and chronic respiratory failure Current Visit: Yes Status: Acute (2) COPD (chronic obstructive pulmonary disease) Current Visit: Yes Status: Chronic (3) Symptomatic anemia Current Visit: Yes Status: Acute (4) Altered mental status Current Visit: Yes Status: Resolved (5) Thrombocytopenia Current Visit: Yes Status: Acute (6) NSTEMI (non-ST elevated myocardial infarction) Current Visit: Yes Status: Acute Plan to address problem: type II (7) Abnormal ECG Current Visit: Yes Status: Acute (8) ORV[place] (acute kidney injury) Current Visit: Yes Status: Acute (9) Diabetes Current Visit: Yes Status: Chronic (10) Myelodysplastic syndrome Current Visit: Yes Status: Chronic (11) History of colon cancer Current Visit: Yes Status: Chronic (12) Tobacco use Current Visit: Yes Status: Chronic Subjective Date of service: 03/04/19 Principal diagnosis: COPD exac; resp failure; anemia; MDS; NSTEMI Interval history: pt resting in bed, states he is feeling better today. s/p PRBC tx yesterday. in ST HR 100s on tele, no current cardiac complaints. Objective Last Vital Signs Temp 97.3 F L 03/04/19 12:59 Pulse 91 H 03/04/19 12:00 Resp 24 03/04/19 12:00 BP 115/46 03/04/19 12:00 Pulse Ox 98 03/04/19 12:00 - Physical Examination General: No Apparent Distress HEENT: Positive: PERRL, Normocephaly, Mucus Membranes Moist Neck: Positive: neck supple, trachea midline Cardiac: Positive: Regular Rhythm, S1/S2 Lungs: Positive: Decreased Breath Sounds Neuro: Positive: Grossly Intact Abdomen: Negative: Tender Skin: Negative: Rash Musculoskeletal: No Pain Extremities: Present: edema (trace BLE) - Labs and Meds CBC 03/04/19 Range/Units 07:01 WBC 2.3 L (4.5-11.0) K/mm3 RBC 2.43 L (3.65-5.03) M/mm3 Hgb 7.6 L (11.8-15.2) gm/dl Hct 22.9 L (35.5-45.6) % Plt Count 41 L (140-440) K/mm3 Comprehensive Metabolic Panel 03/04/19 Range/Units 04:23 Sodium 143 (137-145) mmol/L Potassium 4.6 (3.6-5.0) mmol/L Chloride 106.7 (98-107) mmol/L Carbon Dioxide 25 D (22-30) mmol/L BUN 44 H (9-20) mg/dL Creatinine 1.8 H (0.8-1.5) mg/dL Glucose 154 H (75-100) mg/dL Calcium 8.3 L (8.4-10.2) mg/dL - Imaging and Cardiology EKG: report reviewed, image reviewed Echo: pending, report reviewed (07/2010 showed EF 50-55%, mild LVH, mild MR, mild AR, trivial TR. ) - EKG Sinus rhythms and dysrhythmias: sinus rhythm Repolarization changes or abnormalities: ST or T wave suggestive of ischemia
--- NOTE | 2019-03-04 15:16 | Consultation ---
History of Present Illness - Reason for Consult Consult date: 03/04/19 - History of Present Illness Mr. Willard is a 73yo with type II DM, hypertension, COPD, colon CA w/ mets to liver s/p resection and recent dx of MDS who presented to the ED with via EMS with difficulty breathing. Per records, patient reported a one day history of progressive worsening of SOB and wheezing. He had a period of unresponsiveness at home prompting call to EMS. In the ED, patient was initially unresponsive. However, w/in five minutes of arrival, he became more responsive and began talking. Patient reports that he was in usual state of health until 1 day prior to admission when he began experiencing intermittent episodes of left arm/shoulder associated with orthopnea and diaphoresis. He reports episodes began at appx 3am on 03/02 and lasted appx 15minutes; sx subsided after sitting upright in bed but returned. Labs in the ED were notable for BUN 30, SCr 1.8mg/dL and Hb 6.3. Additional work up notable for an elevated troponin and EKG with diffuse ST depression. Past History Past Medical History: COPD, diabetes, hypertension, other (hx of colon ca w/ liver mets s/p resection, MDS) Past Surgical History: No surgical history Social history: smoking Family history: no significant family history Medications and Allergies Allergies Allergy/AdvReac Type Severity Reaction Status Date / Time morphine AdvReac HALLUCINATI Verified 03/19/18 16:36 ONS IVP DYE AdvReac Hives Uncoded 03/19/18 16:36 Home Medications Medication Instructions Recorded Confirmed Last Taken Type Aspirin EC [Aspirin Enteric Coated 81 mg PO QDAY 08/05/15 03/03/19 10 Days Ago History TAB] ~03/18/18 Metoprolol [Lopressor] 100 mg PO DAILY 08/05/15 03/19/18 03/28/18 04:30 History Pravastatin Sodium [Pravastatin] 20 mg PO QHS 08/05/15 03/19/18 03/28/18 04:30 History amLODIPine [Norvasc] 5 mg PO DAILY 08/05/15 03/03/19 03/28/18 04:30 History ALBUTEROL Inhaler(NF) [VENTOLIN 2 puff IH QDAY PRN 03/19/18 03/03/19 Unknown History Inhaler(NF)] Fluticasone [Flonase] 1 spray NS QDAY 03/19/18 03/28/18 03/27/18 History Sfhzoxkj-Bjuyvfi-Jzlx 149-Hyal 1,500 mg PO BID 03/19/18 03/03/19 10 Days Ago History [Glucosamine-Chondr Complex Tab] ~03/18/18 Multivit-Min/FA/Lycopen/Lutein 1 each PO DAILY 03/19/18 03/19/18 10 Days Ago History [Centrum Silver Tablet] ~03/18/18 [place]-3 Fatty Acids/Fish Oil [Fish 1 each PO DAILY 03/19/18 03/19/18 10 Days Ago History Oil 1,000 mg Capsule] ~03/18/18 Umeclidinium Brm/Vilanterol Tr 1 each IH DAILY 03/19/18 03/19/18 03/28/18 04:30 History [Anoro Ellipta 62.5-25 Mcg INH] Metoprolol Succinate [Toprol Xl] 100 mg PO 03/03/19 Unknown History Multivit-Min/FA/Lycopen/Lutein 03/03/19 Unknown History [Centrum Silver Tablet] Active Meds: Active Medications Acetaminophen (Tylenol) 650 mg PO Q4H PRN PRN Reason: Pain MILD(1-3)/Fever >100.5/CUEVAS Atorvastatin Calcium (Atorvastatin) 10 mg PO QHS [facility] Last Admin: 03/03/19 22:33 Dose: 10 mg Documented by: Heparin Sodium (Porcine) (Heparin) 5,000 unit SUB-Q Q8HR [facility] Last Admin: 03/04/19 08:06 Dose: Not Given Documented by: Metoprolol Tartrate (Metoprolol) 12.5 mg PO BID [facility] Last Admin: 03/04/19 11:25 Dose: 12.5 mg Documented by: Ondansetron HCl (Zofran) 4 mg IV Q8H PRN PRN Reason: Nausea And Vomiting Sodium Chloride (Sodium Chloride Flush Syringe 10 Ml) 10 ml IV BID [facility] Last Admin: 03/04/19 11:26 Dose: 10 ml Documented by: Sodium Chloride (Sodium Chloride Flush Syringe 10 Ml) 10 ml IV PRN PRN PRN Reason: LINE FLUSH Last Admin: 03/03/19 17:48 Dose: 10 ml Documented by: Review of Systems All systems: negative Exam - Vital Signs Vital signs: Vital Signs Pulse Resp Pulse Ox 116 H 26 H 100 03/03/19 06:50 03/03/19 06:50 03/03/19 06:50 - General Appearance General appearance: well-developed, well-nourished EENT: ATNC Respiratory: Other (+rhonchi) Heart: tachycardia, S1S2 Gastrointestinal: Present: normal. Absent: tenderness, distended Integumentary: no rash, warm and dry Neurologic: no focal deficit Musculoskeletal: Present: other (no edema) Psychiatric: cooperative Results - Lab Results 03/04/19 07:01 03/04/19 04:23 Most recent lab results Calcium 8.3 mg/dL (8.4-10.2) L 03/04/19 04:23 Assessment and Plan Impression: * Nonoliguric [place] vs underlying chronic kidney disease --SCr 1.0mg/dL in Dec 2017 * NSTEMI * Acute hypoxic/hypercapnic respiratory failure * COPD * Myelodysplastic syndrome * Type II DM * Hypertension Plan: * Renal function has remained stable since admission; baseline renal function unknown; will attempt to obtain outpatient labs. * Hold diuretics today - last dose on 03/03 * Will obtain urine studies and renal ultrasound * Cardiology recommendations noted - TTE pending * Patient is followed by Dr. Lozano as an outpatient - rec pulmonary consultation * Avoid potential nephrotoxins * Dose medications for renal function * AM labs ordered
--- NOTE | 2019-03-04 16:53 | Progress Note ---
Assessment and Plan Assessment and plan: Acute hypoxic resp failure. Etiology likely sec heart failure. CXR with bilateral interstitial opacities and elevated BNP. Check Echo Elevated trop. Cards consulted. Check ECHO MDS. Pt with recent dx of MDS and is followed by [facility]. Heme consult ARf. Nephrology consult Anemia. Tansfusee 2 units PRBCs History Interval history: No new issues overnight Hospitalist Physical - Constitutional Vitals: Temp Pulse Resp BP Pulse Ox 97.6 F 101 H 14 105/64 99 03/04/19 16:00 03/04/19 14:00 03/04/19 14:00 03/04/19 14:00 03/04/19 14:18 General appearance: Present: mild distress (sob) - EENT Eyes: Present: PERRL, EOM intact ENT: hearing intact, clear oral mucosa, dentition normal - Neck Neck: Present: supple, normal ROM - Respiratory Respiratory effort: normal Respiratory: bilateral: CTA - Cardiovascular Rhythm: regular Heart Sounds: Present: S1 & S2. Absent: gallop, rub - Extremities Extremities: no ischemia, No edema, Full ROM - Abdominal General gastrointestinal: soft, non-tender, non-distended, normal bowel sounds - Integumentary Integumentary: Present: clear, warm, dry - Neurologic Neurologic: CNII-XII intact, moves all extremities Results - Labs CBC & Chem 7: 03/04/19 07:01 03/04/19 04:23 Labs: Laboratory Last Values WBC 2.3 K/mm3 (4.5-11.0) L 03/04/19 07:01 RBC 2.43 M/mm3 (3.65-5.03) L 03/04/19 07:01 Hgb 7.6 gm/dl (11.8-15.2) L 03/04/19 07:01 Hct 22.9 % (35.5-45.6) L 03/04/19 07:01 MCV 95 fl (84-94) H 03/04/19 07:01 MCH 32 pg (28-32) 03/04/19 07:01 MCHC 33 % (32-34) 03/04/19 07:01 RDW 23.8 % (13.2-15.2) H 03/04/19 07:01 Plt Count 41 K/mm3 (140-440) L 03/04/19 07:01 Add Manual Diff Complete 03/04/19 07:01 Total Counted 100 03/04/19 07:01 Seg Neuts % (Manual) 71.0 % (40.0-70.0) H 03/04/19 07:01 Band Neutrophils % 5.0 % 03/04/19 07:01 Lymphocytes % (Manual) 17.0 % (13.4-35.0) 03/04/19 07:01 Reactive Lymphs % (Man) 0 % 03/04/19 07:01 Monocytes % (Manual) 7.0 % (0.0-7.3) 03/04/19 07:01 Eosinophils % (Manual) 0 % (0.0-4.3) 03/04/19 07:01 Basophils % (Manual) 0 % (0.0-1.8) 03/04/19 07:01 Metamyelocytes % 0 % 03/04/19 07:01 Myelocytes % 0 % 03/04/19 07:01 Promyelocytes % 0 % 03/04/19 07:01 Blast Cells % 0 % 03/04/19 07:01 Nucleated RBC % 1.0 % (0.0-0.9) H 03/04/19 07:01 Seg Neutrophils # Man 1.6 K/mm3 (1.8-7.7) L 03/04/19 07:01 Band Neutrophils # 0.1 K/mm3 03/04/19 07:01 Lymphocytes # (Manual) 0.4 K/mm3 (1.2-5.4) L 03/04/19 07:01 Abs React Lymphs (Man) 0.0 K/mm3 03/04/19 07:01 Monocytes # (Manual) 0.2 K/mm3 (0.0-0.8) 03/04/19 07:01 Eosinophils # (Manual) 0.0 K/mm3 (0.0-0.4) 03/04/19 07:01 Basophils # (Manual) 0.0 K/mm3 (0.0-0.1) 03/04/19 07:01 Metamyelocytes # 0.0 K/mm3 03/04/19 07:01 Myelocytes # 0.0 K/mm3 03/04/19 07:01 Promyelocytes # 0.0 K/mm3 03/04/19 07:01 Blast Cells # 0.0 K/mm3 03/04/19 07:01 WBC Morphology Not Reportable 03/04/19 07:01 Hypersegmented Neuts Not Reportable 03/04/19 07:01 Hyposegmented Neuts Not Reportable 03/04/19 07:01 Hypogranular Neuts Not Reportable 03/04/19 07:01 Smudge Cells Not Reportable 03/04/19 07:01 Toxic Granulation Not Reportable 03/04/19 07:01 Toxic Vacuolation Not Reportable 03/04/19 07:01 Dohle Bodies Not Reportable 03/04/19 07:01 Pelger-Huet Anomaly Not Reportable 03/04/19 07:01 Traci Rods Not Reportable 03/04/19 07:01 Platelet Estimate Consistent w auto 03/04/19 07:01 Clumped Platelets Not Reportable 03/04/19 07:01 Plt Clumps, EDTA Not Reportable 03/04/19 07:01 Large Platelets Not Reportable 03/04/19 07:01 Giant Platelets Not Reportable 03/04/19 07:01 Platelet Satelliting Not Reportable 03/04/19 07:01 Plt Morphology Comment Not Reportable 03/04/19 07:01 RBC Morphology Not Reportable 03/04/19 07:01 Dimorphic RBCs Not Reportable 03/04/19 07:01 Polychromasia Few 03/04/19 07:01 Hypochromasia 1+ 03/04/19 07:01 Poikilocytosis Not Reportable 03/04/19 07:01 Anisocytosis 2+ 03/04/19 07:01 Microcytosis Not Reportable 03/04/19 07:01 Macrocytosis 1+ 03/04/19 07:01 Spherocytes Not Reportable 03/04/19 07:01 Pappenheimer Bodies Not Reportable 03/04/19 07:01 Sickle Cells Not Reportable 03/04/19 07:01 Target Cells Not Reportable 03/04/19 07:01 Tear Drop Cells Few 03/04/19 07:01 Ovalocytes 1+ 03/04/19 07:01 Helmet Cells Not Reportable 03/04/19 07:01 [place] Pillar Bodies Not Reportable 03/04/19 07:01 [place] Rings Not Reportable 03/04/19 07:01 [place] Cells Not Reportable 03/04/19 07:01 Bite Cells Not Reportable 03/04/19 07:01 Crenated Cell Not Reportable 03/04/19 07:01 Elliptocytes Not Reportable 03/04/19 07:01 Acanthocytes (Spur) Not Reportable 03/04/19 07:01 Rouleaux Not Reportable 03/04/19 07:01 Hemoglobin C Crystals Not Reportable 03/04/19 07:01 Schistocytes Rare 03/04/19 07:01 Malaria parasites Not Reportable 03/04/19 07:01 Benjamin Bodies Not Reportable 03/04/19 07:01 Hem Pathologist Commnt No 03/04/19 07:01 D-Dimer 891.58 ng/mlDDU (0-234) H 03/03/19 06:58 POC ABG pH 7.072 (7.35-7.45) L 03/03/19 06:58 POC ABG pCO2 47.1 (35-45) H 03/03/19 06:58 POC ABG pO2 327 (80-105) H 03/03/19 06:58 POC ABG HCO3 13.7 (22-26 mml/L) 03/03/19 06:58 POC ABG Total CO2 15 (23-27mmol/L) 03/03/19 06:58 POC ABG O2 Sat 100 03/03/19 06:58 POC ABG Base Excess -16 ((-2) - (+3)mmol/L) 03/03/19 06:58 FiO2 100 % 03/03/19 06:58 Sodium 143 mmol/L (137-145) 03/04/19 04:23 Potassium 4.6 mmol/L (3.6-5.0) 03/04/19 04:23 Chloride 106.7 mmol/L (98-107) 03/04/19 04:23 Carbon Dioxide 25 mmol/L (22-30) D 03/04/19 04:23 Anion Gap 16 mmol/L 03/04/19 04:23 BUN 44 mg/dL (9-20) H 03/04/19 04:23 Creatinine 1.8 mg/dL (0.8-1.5) H 03/04/19 04:23 Estimated GFR 37 ml/min 03/04/19 04:23 BUN/Creatinine Ratio 24 % 03/04/19 04:23 Glucose 154 mg/dL (75-100) H 03/04/19 04:23 Calcium 8.3 mg/dL (8.4-10.2) L 03/04/19 04:23 Total Bilirubin 0.90 mg/dL (0.1-1.2) 03/03/19 06:58 AST 55 units/L (5-40) H 03/03/19 06:58 ALT 36 units/L (7-56) 03/03/19 06:58 Alkaline Phosphatase 62 units/L (35-129) 03/03/19 06:58 Ammonia 30.0 umol/L (25-60) 03/03/19 06:58 Troponin T 1.160 ng/mL (0.00-0.029) H* 03/04/19 04:23 NT-Pro-B Natriuret Pep 4210 pg/mL (0-900) H 03/03/19 07:25 Total Protein 7.0 g/dL (6.3-8.2) 03/03/19 06:58 Albumin 4.2 g/dL (3.9-5) 03/03/19 06:58 Albumin/Globulin Ratio 1.5 % 03/03/19 06:58 Triglycerides 46 mg/dL (2-149) 03/03/19 06:58 Cholesterol 114 mg/dL (50-199) 03/03/19 06:58 LDL Cholesterol Direct 68 mg/dL (50-130) 03/03/19 06:58 HDL Cholesterol 51 mg/dL (40-59) 03/03/19 06:58 Cholesterol/HDL Ratio 2.23 % 03/03/19 06:58 TSH 1.590 mlU/mL (0.270-4.200) 03/03/19 06:58 Blood Type O POSITIVE 03/03/19 08:40 Antibody Screen Negative 03/03/19 08:40 Crossmatch See Detail 03/03/19 08:40 Active Medications - Current Medications Current Medications: Generic Name Dose Route Start Last Admin Trade Name Freq PRN Reason Stop Dose Admin Acetaminophen 650 mg 03/03/19 15:40 Tylenol PO Q4H PRN Pain MILD(1-3)/Fever >100.5/CUEVAS Atorvastatin Calcium 10 mg 03/03/19 22:00 03/03/19 22:33 Atorvastatin PO 10 mg QHS KENYETTA Administration Heparin Sodium (Porcine) 5,000 unit 03/03/19 22:00 03/04/19 08:06 Heparin SUB-Q Not Given Q8HR KENYETTA Metoprolol Tartrate 12.5 mg 03/03/19 22:00 03/04/19 11:25 Metoprolol PO 12.5 mg BID KENYETTA Administration Ondansetron HCl 4 mg 03/03/19 15:40 Zofran IV Q8H PRN Nausea And Vomiting Sodium Chloride 10 ml 03/03/19 22:00 03/04/19 11:26 Sodium Chloride Flush Syringe 10 Ml IV 10 ml BID KENYETTA Administration Sodium Chloride 10 ml 03/03/19 15:40 03/03/19 17:48 Sodium Chloride Flush Syringe 10 Ml IV 10 ml PRN PRN Administration LINE FLUSH
[2019-03-04 20:15] LABS: Bilirubin,Urine NEG (Negative); Blood,Urine SM (Negative); Color,Urine Yellow (Yellow); Mucus,Urine FEW /HPF; Urobilinogen,Urine < 2.0 mg/dL (<2.0)
[2019-03-04 20:27] LABS: Creatinine,Urine 75.4 mg/dL (0.1-20.0); Protein/Creatinine Ratio,Urine 0.33
[2019-03-05 04:15] LABS: Hematocrit 23.6 % (35.5-45.6); Hemoglobin 7.8 gm/dl (11.8-15.2); Mean Corpuscular HGB Conc 33 % (32-34); Mean Corpuscular Volume 96 fl (84-94); Red Blood Count 2.46 M/mm3 (3.65-5.03)
[2019-03-05 04:40] LABS: Calcium 8.4 mg/dL (8.4-10.2)
[2019-03-05 04:51] LABS: Platelet Count 52 K/mm3 (140-440)
[2019-03-05] MEDS: HEPARIN 5,000 UNIT/1 ML VIAL SUB-Q SCH (06:00)
[2019-03-05] MEDS: METOPROLOL TARTRATE 25 MG TAB PO SCH ×2 (09:25→21:51)
--- NOTE | 2019-03-05 12:35 | Progress Note ---
Assessment and Plan Impression: * Nonoliguric [place] vs underlying chronic kidney disease --SCr 1.0mg/dL in Dec 2017 --UPCR 330mg (Jan 2019) * NSTEMI * Acute hypoxic/hypercapnic respiratory failure * Pyruia/hematuria r/o UTI * COPD * Myelodysplastic syndrome * Type II DM * Hypertension Plan: * Renal function improved, SCr trending down; baseline renal function unknown * Renal u/s pending * Follow up on urine cx; will give Rocephin 1g IV pending results * Lasix 40mg IV x 1 dose today * Cardiology recommendations noted - TTE pending * Pulmonary consultation pending * Avoid potential nephrotoxins * Dose medications for renal function * 2g Na restricted diet * AM labs ordered * Strict I/O Subjective Date of service: 03/05/19 Principal diagnosis: COPD exac; resp failure; anemia; MDS; NSTEMI Interval history: Patient currently on 4L [place] oxygen. Complains of dysuria today. Objective - Vital Signs Vital signs: Vital Signs - 12hr 03/05/19 03/05/19 03/05/19 01:00 02:00 02:25 Temperature Pulse Rate 89 89 129 H Pulse Rate [ From Monitor] Respiratory 19 20 28 H Rate Blood Pressure 127/55 121/54 O2 Sat by Pulse 100 98 97 Oximetry 03/05/19 03/05/19 03/05/19 03:00 04:00 05:00 Temperature 97.7 F Pulse Rate 83 97 H 95 H Pulse Rate [ 110 H From Monitor] Respiratory 17 18 34 H Rate Blood Pressure 121/53 116/41 116/41 O2 Sat by Pulse 99 100 99 Oximetry 03/05/19 03/05/19 03/05/19 06:00 07:00 07:29 Temperature Pulse Rate 88 209 H 191 H Pulse Rate [ From Monitor] Respiratory 19 29 H 29 H Rate Blood Pressure 116/41 O2 Sat by Pulse 98 98 99 Oximetry 03/05/19 03/05/19 03/05/19 07:45 09:25 10:00 Temperature 98.2 F Pulse Rate 107 H Pulse Rate [ From Monitor] Respiratory Rate Blood Pressure 124/83 O2 Sat by Pulse 99 Oximetry 03/05/19 12:00 Temperature 99.0 F Pulse Rate Pulse Rate [ From Monitor] Respiratory Rate Blood Pressure O2 Sat by Pulse Oximetry - General Appearance General appearance: well-developed, well-nourished EENT: ATNC Respiratory: Present: Wheezes Cardiology: regular, S1S2 Gastrointestinal: normal, no tenderness, no distended Integumentary: no rash, warm and dry Musculoskeletal: other (no edema) Psychiatric: cooperative - Lab 03/05/19 03:42 03/05/19 03:42 Most recent lab results Calcium 8.4 mg/dL (8.4-10.2) 03/05/19 03:42 Urine Creatinine 75.4 mg/dL (0.1-20.0) H 03/04/19 19:55 Urine Sodium 45 mmol/L 03/04/19 19:55 Urine Total Protein 25 mg/dL (5-11.8) H 03/04/19 19:55 Medications & Allergies - Medications Allergies/Adverse Reactions: Allergies morphine Adverse Reaction (Verified 03/19/18 16:36) HALLUCINATIONS IVP DYE Adverse Reaction (Uncoded 03/19/18 16:36) Hives Home Medications: Home Medications Medication Instructions Recorded Confirmed Last Taken Type Aspirin EC [Aspirin Enteric Coated 81 mg PO QDAY 08/05/15 03/03/19 10 Days Ago History TAB] ~03/18/18 Metoprolol [Lopressor] 100 mg PO DAILY 08/05/15 03/19/18 03/28/18 04:30 History Pravastatin Sodium [Pravastatin] 20 mg PO QHS 08/05/15 03/19/18 03/28/18 04:30 History amLODIPine [Norvasc] 5 mg PO DAILY 08/05/15 03/03/19 03/28/18 04:30 History ALBUTEROL Inhaler(NF) [VENTOLIN 2 puff IH QDAY PRN 03/19/18 03/03/19 Unknown History Inhaler(NF)] Fluticasone [Flonase] 1 spray NS QDAY 03/19/18 03/28/18 03/27/18 History Cjexjinr-Aehfdjs-Bhex 149-Hyal 1,500 mg PO BID 03/19/18 03/03/19 10 Days Ago History [Glucosamine-Chondr Complex Tab] ~03/18/18 Multivit-Min/FA/Lycopen/Lutein 1 each PO DAILY 03/19/18 03/19/18 10 Days Ago History [Centrum Silver Tablet] ~03/18/18 [place]-3 Fatty Acids/Fish Oil [Fish 1 each PO DAILY 03/19/18 03/19/18 10 Days Ago History Oil 1,000 mg Capsule] ~03/18/18 Umeclidinium Brm/Vilanterol Tr 1 each IH DAILY 03/19/18 03/19/18 03/28/18 04:30 History [Anoro Ellipta 62.5-25 Mcg INH] Metoprolol Succinate [Toprol Xl] 100 mg PO 03/03/19 Unknown History Multivit-Min/FA/Lycopen/Lutein 03/03/19 Unknown History [Centrum Silver Tablet] Active Medications: Generic Name Dose Route Start Last Admin Trade Name Freq PRN Reason Stop Dose Admin Acetaminophen 650 mg 03/03/19 15:40 Tylenol PO Q4H PRN Pain MILD(1-3)/Fever >100.5/CUEVAS Atorvastatin Calcium 10 mg 03/03/19 22:00 03/04/19 22:19 Atorvastatin PO 10 mg QHS KENYETTA Administration Metoprolol Tartrate 12.5 mg 03/03/19 22:00 03/05/19 09:25 Metoprolol PO 12.5 mg BID KEN[place]ET[place] Administration Ondansetron HCl 4 mg 03/03/19 15:40 Zofran IV Q8H PRN Nausea And Vomiting Sodium Chloride 10 ml 03/03/19 22:00 03/05/19 09:26 Sodium Chloride Flush Syringe 10 Ml IV 10 ml BID [place] Administration Sodium Chloride 10 ml 03/03/19 15:40 03/03/19 17:48 Sodium Chloride Flush Syringe 10 Ml IV 10 ml PRN PRN Administration LINE FLUSH
[2019-03-05] MEDS ORDERED: cefTRIAXone/NS 1 GM/50 ML 1 GM/50 ML BAG IV SCH (13:00)
[2019-03-05] MEDS ORDERED: FUROSEMIDE 40 MG/4 ML INJ IV ONE (13:27)
--- NOTE | 2019-03-05 14:23 | Progress Note ---
Assessment and Plan Cont present conservative cardiac management at this time. Consider ischemic evaluation once medically stabilized as OP. The patient has been seen in conjunction with Dr. Vaughn Montejo who agrees with the assessment and plan of care. - Patient Problems (1) Acute and chronic respiratory failure Current Visit: Yes Status: Acute (2) COPD (chronic obstructive pulmonary disease) Current Visit: Yes Status: Chronic (3) Symptomatic anemia Current Visit: Yes Status: Acute (4) Altered mental status Current Visit: Yes Status: Resolved (5) Thrombocytopenia Current Visit: Yes Status: Acute (6) NSTEMI (non-ST elevated myocardial infarction) Current Visit: Yes Status: Acute Plan to address problem: type II (7) Abnormal ECG Current Visit: Yes Status: Acute (8) [place] (acute kidney injury) Current Visit: Yes Status: Acute (9) Diabetes Current Visit: Yes Status: Chronic (10) Myelodysplastic syndrome Current Visit: Yes Status: Chronic (11) History of colon cancer Current Visit: Yes Status: Chronic (12) Tobacco use Current Visit: Yes Status: Chronic Subjective Date of service: 03/05/19 Principal diagnosis: COPD exac; resp failure; anemia; MDS; NSTEMI Interval history: pt resting in bed, states he is feeling well. in ST HR 100s on tele, no current cardiac complaints. family at bedside. Objective Last Vital Signs Temp 99.0 F 03/05/19 12:00 Pulse 107 H 03/05/19 09:25 Resp 29 H 03/05/19 07:29 BP 124/83 03/05/19 09:25 Pulse Ox 99 03/05/19 10:00 - Physical Examination General: No Apparent Distress HEENT: Positive: PERRL, Normocephaly, Mucus Membranes Moist Neck: Positive: neck supple, trachea midline Cardiac: Positive: Regular Rhythm, S1/S2 Lungs: Positive: Decreased Breath Sounds, Oxygen Neuro: Positive: Grossly Intact Abdomen: Negative: Tender Skin: Negative: Rash Musculoskeletal: No Pain Extremities: Present: edema (trace BLE) - Labs and Meds CBC 03/05/19 Range/Units 03:42 WBC 2.6 L (4.5-11.0) K/mm3 RBC 2.46 L (3.65-5.03) M/mm3 Hgb 7.8 L (11.8-15.2) gm/dl Hct 23.6 L (35.5-45.6) % Plt Count 52 L (140-440) K/mm3 Comprehensive Metabolic Panel 03/05/19 Range/Units 03:42 Sodium 143 (137-145) mmol/L Potassium 4.0 (3.6-5.0) mmol/L Chloride 107.9 H (98-107) mmol/L Carbon Dioxide 23 (22-30) mmol/L BUN 47 H (9-20) mg/dL Creatinine 1.6 H (0.8-1.5) mg/dL Glucose 130 H (75-100) mg/dL Calcium 8.4 (8.4-10.2) mg/dL - Imaging and Cardiology EKG: report reviewed, image reviewed Echo: report reviewed (01/2019: EF 50-55%, pseudonormalization, mild AR, mild , mod MR, mod pulm HTN. 07/2010 showed EF 50-55%, mild LVH, mild MR, mild AR, trivial TR. ) - Telemetry EKG Rhythm: Sinus Rhythm - EKG Sinus rhythms and dysrhythmias: sinus rhythm
--- NOTE | 2019-03-05 16:35 | Consultation ---
History of Present Illness Consult date: 03/05/19 Requesting physician: JOANN ALICEA Reason for consult: COPD, hypoxemia History of present illness: 73 y/o male with known COPD, continued tobacco abuse and questionable compliance admitted with acute on chronic respiratory failure most likely secondary to pulmonary edema. Required advanced forms of oxygen delivery but now weaned down to nasal cannula and stable. Past History Past Medical History: COPD, diabetes, hypertension, other (hx of colon ca w/ liver mets s/p resection, MDS) Past Surgical History: No surgical history Social history: smoking Family history: no significant family history Medications and Allergies Allergies Allergy/AdvReac Type Severity Reaction Status Date / Time morphine AdvReac HALLUCINATI Verified 03/19/18 16:36 ONS IVP DYE AdvReac Hives Uncoded 03/19/18 16:36 Home Medications Medication Instructions Recorded Confirmed Last Taken Type Aspirin EC [Aspirin Enteric Coated 81 mg PO QDAY 08/05/15 03/03/19 10 Days Ago History TAB] ~03/18/18 Metoprolol [Lopressor] 100 mg PO DAILY 08/05/15 03/05/19 03/28/18 04:30 History Pravastatin Sodium [Pravastatin] 20 mg PO QHS 08/05/15 03/05/19 03/28/18 04:30 History amLODIPine [Norvasc] 5 mg PO DAILY 08/05/15 03/03/19 03/28/18 04:30 History ALBUTEROL Inhaler(NF) [VENTOLIN 2 puff IH QDAY PRN 03/19/18 03/03/19 Unknown History Inhaler(NF)] Fluticasone [Flonase] 1 spray NS QDAY 03/19/18 03/05/19 03/27/18 History Tgoshnde-Gujczvw-Oilp 149-Hyal 1,500 mg PO BID 03/19/18 03/03/19 10 Days Ago History [Glucosamine-Chondr Complex Tab] ~03/18/18 Multivit-Min/FA/Lycopen/Lutein 1 each PO DAILY 03/19/18 03/05/19 10 Days Ago History [Centrum Silver Tablet] ~03/18/18 [place]-3 Fatty Acids/Fish Oil [Fish 1 each PO DAILY 03/19/18 03/05/19 10 Days Ago History Oil 1,000 mg Capsule] ~03/18/18 Umeclidinium Brm/Vilanterol Tr 1 each IH DAILY 03/19/18 03/05/19 03/28/18 04:30 History [Anoro Ellipta 62.5-25 Mcg INH] Metoprolol Succinate [Toprol Xl] 100 mg PO DAILY 03/03/19 03/05/19 Unknown History Multivit-Min/FA/Lycopen/Lutein 1 each PO DAILY 03/03/19 03/05/19 Unknown History [Centrum Silver Tablet] Active Meds: Active Medications Acetaminophen (Tylenol) 650 mg PO Q4H PRN PRN Reason: Pain MILD(1-3)/Fever >100.5/CUEVAS Atorvastatin Calcium (Atorvastatin) 10 mg PO QHS [facility] Last Admin: 03/04/19 22:19 Dose: 10 mg Documented by: Ceftriaxone Sodium (Rocephin/Ns 1 Gm/50 Ml) 1 gm in 50 mls @ 100 mls/hr IV Q24H [facility] Last Infusion: 03/05/19 13:30 Dose: Infused Documented by: Metoprolol Tartrate (Metoprolol) 12.5 mg PO BID [facility] Last Admin: 03/05/19 09:25 Dose: 12.5 mg Documented by: Ondansetron HCl (Zofran) 4 mg IV Q8H PRN PRN Reason: Nausea And Vomiting Sodium Chloride (Sodium Chloride Flush Syringe 10 Ml) 10 ml IV BID [facility] Last Admin: 03/05/19 09:26 Dose: 10 ml Documented by: Sodium Chloride (Sodium Chloride Flush Syringe 10 Ml) 10 ml IV PRN PRN PRN Reason: LINE FLUSH Last Admin: 03/03/19 17:48 Dose: 10 ml Documented by: Review of Systems All systems: negative Physical Examination Vital signs: Vital Signs Pulse Resp Pulse Ox 116 H 26 H 100 03/03/19 06:50 03/03/19 06:50 03/03/19 06:50 General appearance: no acute distress, alert ENT: other (poor dentition) Neck: supple Ascultation: Bilateral: rales (at the bases) Percussion: Bilateral: not dull Tactile fremitus: Bilateral: normal Cardiovascular: regular rate and rhythm Gastrointestinal: normoactive bowel sounds Results - Laboratory Findings CBC and BMP: 03/05/19 03:42 03/05/19 03:42 ABG POC ABG pH 7.072 (7.35-7.45) L 03/03/19 06:58 POC ABG pCO2 47.1 (35-45) H 03/03/19 06:58 POC ABG pO2 327 (80-105) H 03/03/19 06:58 POC ABG HCO3 13.7 (22-26 mml/L) 03/03/19 06:58 POC ABG Total CO2 15 (23-27mmol/L) 03/03/19 06:58 POC ABG O2 Sat 100 03/03/19 06:58 PT/INR, D-dimer D-Dimer 891.58 ng/mlDDU (0-234) H 03/03/19 06:58 Abnormal lab findings: Abnormal Labs 03/03/19 03/03/19 03/03/19 06:58 06:58 06:58 WBC RBC 1.99 L Hgb 6.3 L Hct 21.1 L MCV 106 H MCHC 30 L RDW 30.0 H Plt Count 95 L Seg Neuts % (Manual) Basophils % (Manual) 2.0 H Nucleated RBC % 7.0 H Seg Neutrophils # Man 0.0 L Lymphocytes # (Manual) 0.0 L D-Dimer 891.58 H POC ABG pH POC ABG pCO2 POC ABG pO2 Chloride Carbon Dioxide 15 L BUN 30 H Creatinine 1.8 H Glucose 259 H Calcium AST 55 H Troponin T 0.118 H* NT-Pro-B Natriuret Pep Urine WBC (Auto) Urine Creatinine Urine Total Protein Crossmatch 03/03/19 03/03/19 03/03/19 06:58 07:25 08:40 WBC RBC Hgb Hct MCV MCHC RDW Plt Count Seg Neuts % (Manual) Basophils % (Manual) Nucleated RBC % Seg Neutrophils # Man Lymphocytes # (Manual) D-Dimer POC ABG pH 7.072 L POC ABG pCO2 47.1 H POC ABG pO2 327 H Chloride Carbon Dioxide BUN Creatinine Glucose Calcium AST Troponin T NT-Pro-B Natriuret Pep 4210 H Urine WBC (Auto) Urine Creatinine Urine Total Protein Crossmatch See Detail 03/03/19 03/03/19 03/04/19 14:51 18:26 04:23 WBC RBC Hgb Hct MCV MCHC RDW Plt Count Seg Neuts % (Manual) Basophils % (Manual) Nucleated RBC % Seg Neutrophils # Man Lymphocytes # (Manual) D-Dimer POC ABG pH POC ABG pCO2 POC ABG pO2 Chloride Carbon Dioxide BUN 44 H Creatinine 1.8 H Glucose 154 H Calcium 8.3 L AST Troponin T 0.579 H* D 1.150 H* D 1.160 H* NT-Pro-B Natriuret Pep Urine WBC (Auto) Urine Creatinine Urine Total Protein Crossmatch 03/04/19 03/04/19 03/04/19 07:01 19:55 19:55 WBC 2.3 L RBC 2.43 L Hgb 7.6 L Hct 22.9 L MCV 95 H MCHC RDW 23.8 H Plt Count 41 L Seg Neuts % (Manual) 71.0 H Basophils % (Manual) Nucleated RBC % 1.0 H Seg Neutrophils # Man 1.6 L Lymphocytes # (Manual) 0.4 L D-Dimer POC ABG pH POC ABG pCO2 POC ABG pO2 Chloride Carbon Dioxide BUN Creatinine Glucose Calcium AST Troponin T NT-Pro-B Natriuret Pep Urine WBC (Auto) 21.0 H Urine Creatinine 75.4 H Urine Total Protein 25 H Crossmatch 03/05/19 03/05/19 03:42 03:42 WBC 2.6 L RBC 2.46 L Hgb 7.8 L Hct 23.6 L MCV 96 H MCHC RDW 24.0 H Plt Count 52 L Seg Neuts % (Manual) Basophils % (Manual) Nucleated RBC % Seg Neutrophils # Man Lymphocytes # (Manual) D-Dimer POC ABG pH POC ABG pCO2 POC ABG pO2 Chloride 107.9 H Carbon Dioxide BUN 47 H Creatinine 1.6 H Glucose 130 H Calcium AST Troponin T NT-Pro-B Natriuret Pep Urine WBC (Auto) Urine Creatinine Urine Total Protein Crossmatch - Diagnostic Findings Chest x-ray: image reviewed (Does appear to be pulmonary edema on CXR) Assessment and Plan 73 y/o male with known COPD admitted with worsening shortness of breath, acute on chronic respiratory failure most likely secondary to pulmonary edema with low lung reserve and also pancyotopenia. 1. Do not feel in overt COPD exacerbation so no need for systemic steroids. 2. Smoking cessation counseling again at bedside 3. Has home O2 already 4. Not overly concerned about pneumonia given rapid improvement. Suggest checking calcitonin. If normal or negative, would stop abx 5. Has responded well to lasix therapy. 6. Will add PRN neb therapy.
[2019-03-05] MEDS ORDERED: ALBUTEROL 2.5 MG/3 ML NEBU IH PRN (16:38)
--- NOTE | 2019-03-05 17:00 | Ultrasound Report ---
Renal ultrasound. 03/05/2019. HISTORY: Acute renal insufficiency. FINDINGS: Right kidney measures 12.6 cm. Cortex is normal measuring 2 cm. A lower pole cyst measures 2.8 cm. Left kidney measures 11.8 cm. Cortex measures 1.3 cm. Nonobstructing stones at the lower pole measure 9 and 11 mm. Cortical echogenicity is normal. Negative for mass or obstruction. The bladder contains moderate urine. IMPRESSION: 1. Benign-appearing cyst lower pole right kidney. 2. Nonobstructing left renal stones. Signer Name: Kenny Rios MD Signed: 03/05/2019 4:56 PM Workstation Name: [id number]
--- NOTE | 2019-03-05 18:45 | Progress Note ---
Assessment and Plan Assessment and plan: Acute hypoxic resp failure. Etiology likely sec heart failure. CXR with bilateral interstitial opacities and elevated BNP. Check Echo Elevated trop. Cards consulted. Check ECHO MDS. Pt with recent dx of MDS and is followed by [facility] Godwin. Heme consult ARf. Nephrology consulted Anemia. Tansfusee 2 units PRBCs History Interval history: No new issues overnight Hospitalist Physical - Constitutional Vitals: Temp Pulse Resp BP Pulse Ox 99.2 F 90 26 H 114/49 99 03/05/19 16:00 03/05/19 18:00 03/05/19 18:00 03/05/19 18:00 03/05/19 18:00 General appearance: Present: mild distress (sob) - EENT Eyes: Present: PERRL, EOM intact ENT: hearing intact, clear oral mucosa, dentition normal - Neck Neck: Present: supple, normal ROM - Respiratory Respiratory effort: normal Respiratory: bilateral: CTA - Cardiovascular Rhythm: regular Heart Sounds: Present: S1 & S2. Absent: gallop, rub - Extremities Extremities: no ischemia, No edema, Full ROM - Abdominal General gastrointestinal: soft, non-tender, non-distended, normal bowel sounds - Integumentary Integumentary: Present: clear, warm, dry - Neurologic Neurologic: CNII-XII intact, moves all extremities Results - Labs CBC & Chem 7: 03/05/19 03:42 03/05/19 03:42 Labs: Laboratory Last Values WBC 2.6 K/mm3 (4.5-11.0) L 03/05/19 03:42 RBC 2.46 M/mm3 (3.65-5.03) L 03/05/19 03:42 Hgb 7.8 gm/dl (11.8-15.2) L 03/05/19 03:42 Hct 23.6 % (35.5-45.6) L 03/05/19 03:42 MCV 96 fl (84-94) H 03/05/19 03:42 MCH 32 pg (28-32) 03/05/19 03:42 MCHC 33 % (32-34) 03/05/19 03:42 RDW 24.0 % (13.2-15.2) H 03/05/19 03:42 Plt Count 52 K/mm3 (140-440) L 03/05/19 03:42 Add Manual Diff Complete 03/04/19 07:01 Total Counted 100 03/04/19 07:01 Seg Neuts % (Manual) 71.0 % (40.0-70.0) H 03/04/19 07:01 Band Neutrophils % 5.0 % 03/04/19 07:01 Lymphocytes % (Manual) 17.0 % (13.4-35.0) 03/04/19 07:01 Reactive Lymphs % (Man) 0 % 03/04/19 07:01 Monocytes % (Manual) 7.0 % (0.0-7.3) 03/04/19 07:01 Eosinophils % (Manual) 0 % (0.0-4.3) 03/04/19 07:01 Basophils % (Manual) 0 % (0.0-1.8) 03/04/19 07:01 Metamyelocytes % 0 % 03/04/19 07:01 Myelocytes % 0 % 03/04/19 07:01 Promyelocytes % 0 % 03/04/19 07:01 Blast Cells % 0 % 03/04/19 07:01 Nucleated RBC % 1.0 % (0.0-0.9) H 03/04/19 07:01 Seg Neutrophils # Man 1.6 K/mm3 (1.8-7.7) L 03/04/19 07:01 Band Neutrophils # 0.1 K/mm3 03/04/19 07:01 Lymphocytes # (Manual) 0.4 K/mm3 (1.2-5.4) L 03/04/19 07:01 Abs React Lymphs (Man) 0.0 K/mm3 03/04/19 07:01 Monocytes # (Manual) 0.2 K/mm3 (0.0-0.8) 03/04/19 07:01 Eosinophils # (Manual) 0.0 K/mm3 (0.0-0.4) 03/04/19 07:01 Basophils # (Manual) 0.0 K/mm3 (0.0-0.1) 03/04/19 07:01 Metamyelocytes # 0.0 K/mm3 03/04/19 07:01 Myelocytes # 0.0 K/mm3 03/04/19 07:01 Promyelocytes # 0.0 K/mm3 03/04/19 07:01 Blast Cells # 0.0 K/mm3 03/04/19 07:01 WBC Morphology Not Reportable 03/04/19 07:01 Hypersegmented Neuts Not Reportable 03/04/19 07:01 Hyposegmented Neuts Not Reportable 03/04/19 07:01 Hypogranular Neuts Not Reportable 03/04/19 07:01 Smudge Cells Not Reportable 03/04/19 07:01 Toxic Granulation Not Reportable 03/04/19 07:01 Toxic Vacuolation Not Reportable 03/04/19 07:01 Dohle Bodies Not Reportable 03/04/19 07:01 Pelger-Huet Anomaly Not Reportable 03/04/19 07:01 Traci Rods Not Reportable 03/04/19 07:01 Platelet Estimate Consistent w auto 03/04/19 07:01 Clumped Platelets Not Reportable 03/04/19 07:01 Plt Clumps, EDTA Not Reportable 03/04/19 07:01 Large Platelets Not Reportable 03/04/19 07:01 Giant Platelets Not Reportable 03/04/19 07:01 Platelet Satelliting Not Reportable 03/04/19 07:01 Plt Morphology Comment Not Reportable 03/04/19 07:01 RBC Morphology Not Reportable 03/04/19 07:01 Dimorphic RBCs Not Reportable 03/04/19 07:01 Polychromasia Few 03/04/19 07:01 Hypochromasia 1+ 03/04/19 07:01 Poikilocytosis Not Reportable 03/04/19 07:01 Anisocytosis 2+ 03/04/19 07:01 Microcytosis Not Reportable 03/04/19 07:01 Macrocytosis 1+ 03/04/19 07:01 Spherocytes Not Reportable 03/04/19 07:01 Pappenheimer Bodies Not Reportable 03/04/19 07:01 Sickle Cells Not Reportable 03/04/19 07:01 Target Cells Not Reportable 03/04/19 07:01 Tear Drop Cells Few 03/04/19 07:01 Ovalocytes 1+ 03/04/19 07:01 Helmet Cells Not Reportable 03/04/19 07:01 [place] Bodies Not Reportable 03/04/19 07:01 [place] Rings Not Reportable 03/04/19 07:01 [place] Cells Not Reportable 03/04/19 07:01 Bite Cells Not Reportable 03/04/19 07:01 Crenated Cell Not Reportable 03/04/19 07:01 Elliptocytes Not Reportable 03/04/19 07:01 Acanthocytes (Spur) Not Reportable 03/04/19 07:01 Rouleaux Not Reportable 03/04/19 07:01 Hemoglobin C Crystals Not Reportable 03/04/19 07:01 Schistocytes Rare 03/04/19 07:01 Malaria parasites Not Reportable 03/04/19 07:01 Benjamin Bodies Not Reportable 03/04/19 07:01 Hem Pathologist Commnt No 03/04/19 07:01 D-Dimer 891.58 ng/mlDDU (0-234) H 03/03/19 06:58 POC ABG pH 7.072 (7.35-7.45) L 03/03/19 06:58 POC ABG pCO2 47.1 (35-45) H 03/03/19 06:58 POC ABG pO2 327 (80-105) H 03/03/19 06:58 POC ABG HCO3 13.7 (22-26 mml/L) 03/03/19 06:58 POC ABG Total CO2 15 (23-27mmol/L) 03/03/19 06:58 POC ABG O2 Sat 100 03/03/19 06:58 POC ABG Base Excess -16 ((-2) - (+3)mmol/L) 03/03/19 06:58 FiO2 100 % 03/03/19 06:58 Sodium 143 mmol/L (137-145) 03/05/19 03:42 Potassium 4.0 mmol/L (3.6-5.0) 03/05/19 03:42 Chloride 107.9 mmol/L (98-107) H 03/05/19 03:42 Carbon Dioxide 23 mmol/L (22-30) 03/05/19 03:42 Anion Gap 16 mmol/L 03/05/19 03:42 BUN 47 mg/dL (9-20) H 03/05/19 03:42 Creatinine 1.6 mg/dL (0.8-1.5) H 03/05/19 03:42 Estimated GFR 42 ml/min 03/05/19 03:42 BUN/Creatinine Ratio 29 % 03/05/19 03:42 Glucose 130 mg/dL (75-100) H 03/05/19 03:42 Calcium 8.4 mg/dL (8.4-10.2) 03/05/19 03:42 Total Bilirubin 0.90 mg/dL (0.1-1.2) 03/03/19 06:58 AST 55 units/L (5-40) H 03/03/19 06:58 ALT 36 units/L (7-56) 03/03/19 06:58 Alkaline Phosphatase 62 units/L (35-129) 03/03/19 06:58 Ammonia 30.0 umol/L (25-60) 03/03/19 06:58 Troponin T 1.160 ng/mL (0.00-0.029) H* 03/04/19 04:23 NT-Pro-B Natriuret Pep 4210 pg/mL (0-900) H 03/03/19 07:25 Total Protein 7.0 g/dL (6.3-8.2) 03/03/19 06:58 Albumin 4.2 g/dL (3.9-5) 03/03/19 06:58 Albumin/Globulin Ratio 1.5 % 03/03/19 06:58 Triglycerides 46 mg/dL (2-149) 03/03/19 06:58 Cholesterol 114 mg/dL (50-199) 03/03/19 06:58 LDL Cholesterol Direct 68 mg/dL (50-130) 03/03/19 06:58 HDL Cholesterol 51 mg/dL (40-59) 03/03/19 06:58 Cholesterol/HDL Ratio 2.23 % 03/03/19 06:58 TSH 1.590 mlU/mL (0.270-4.200) 03/03/19 06:58 Urine Color Yellow (Yellow) 03/04/19 19:55 Urine Turbidity Clear (Clear) 03/04/19 19:55 Urine pH 5.0 (5.0-7.0) 03/04/19 19:55 Ur Specific [place] 1.014 (1.003-1.030) 03/04/19 19:55 Urine Protein 30 mg/dl mg/dL (Negative) 03/04/19 19:55 Urine Glucose (UA) Neg mg/dL (Negative) 03/04/19 19:55 Urine Ketones Neg mg/dL (Negative) 03/04/19 19:55 Urine Blood Sm (Negative) 03/04/19 19:55 Urine Nitrite Neg (Negative) 03/04/19 19:55 Urine Bilirubin Neg (Negative) 03/04/19 19:55 Urine Urobilinogen < 2.0 mg/dL (<2.0) 12 19:55 Ur Leukocyte Esterase Sm (Negative) 03/04/19 19:55 Urine WBC (Auto) 21.0 /HPF (0.0-6.0) H 03/04/19 19:55 Urine RBC (Auto) 4.0 /HPF (0.0-6.0) 03/04/19 19:55 U Epithel Cells (Auto) < 1.0 /HPF (0-13.0) 03/04/19 19:55 Urine Mucus Few /HPF 03/04/19 19:55 Urine Creatinine 75.4 mg/dL (0.1-20.0) H 03/04/19 19:55 Protein/Creatinin Ratio 0.33 03/04/19 19:55 Urine Sodium 45 mmol/L 03/04/19 19:55 Urine Total Protein 25 mg/dL (5-11.8) H 03/04/19 19:55 Blood Type O POSITIVE 03/03/19 08:40 Antibody Screen Negative 03/03/19 08:40 Crossmatch See Detail 03/03/19 08:40 Active Medications - Current Medications Current Medications: Generic Name Dose Route Start Last Admin Trade Name Freq PRN Reason Stop Dose Admin Acetaminophen 650 mg 03/03/19 15:40 Tylenol PO Q4H PRN Pain MILD(1-3)/Fever >100.5/CUEVAS Albuterol 2.5 mg 03/05/19 16:38 Proventil IH Q4HRT PRN Shortness Of Breath Atorvastatin Calcium 10 mg 03/03/19 22:00 03/04/19 22:19 Atorvastatin PO 10 mg QHS KENYETTA Administration Ceftriaxone Sodium 1 gm in 50 mls @ 100 mls/hr 03/05/19 13:00 03/05/19 13:30 Rocephin/Ns 1 Gm/50 Ml IV Infused Q24H KENYETTA Infusion Metoprolol Tartrate 12.5 mg 03/03/19 22:00 03/05/19 09:25 Metoprolol PO 12.5 mg BID KENYETTA Administration Ondansetron HCl 4 mg 03/03/19 15:40 Zofran IV Q8H PRN Nausea And Vomiting Sodium Chloride 10 ml 03/03/19 22:00 03/05/19 09:26 Sodium Chloride Flush Syringe 10 Ml IV 10 ml BID KENYETTA Administration Sodium Chloride 10 ml 03/03/19 15:40 03/03/19 17:48 Sodium Chloride Flush Syringe 10 Ml IV 10 ml PRN PRN Administration LINE FLUSH
[2019-03-06 05:04] LABS: Hematocrit 21.4 % (35.5-45.6); Mean Corpuscular HGB Conc 33 % (32-34); Mean Corpuscular Volume 96 fl (84-94); Red Blood Count 2.24 M/mm3 (3.65-5.03)
[2019-03-06 05:24] LABS: Calcium 8.2 mg/dL (8.4-10.2)
[2019-03-06 06:01] LABS: Red Cell Distribution Width 22.8 % (13.2-15.2)
[2019-03-06 06:27] LABS: Anisocytosis 1+; Basophils % (Manual) 0 % (0.0-1.8); Eosinophils % (Manual) 0 % (0.0-4.3); Platelet Estimate Consistent w Auto; Total Cells Counted 100
[2019-03-06 06:31] LABS: Platelet Count 48 K/mm3 (140-440)
[2019-03-06] MEDS ORDERED: FUROSEMIDE 40 MG/4 ML INJ IV NR (09:17)
--- NOTE | 2019-03-06 09:17 | Progress Note ---
Assessment and Plan Impression: * Nonoliguric [place] vs underlying chronic kidney disease --SCr 1.1mg/dL in Jan 2019 - per outpatient hematology labs --UPCR 330mg (Mar 2019) * NSTEMI --TTE (Mar 2019): LVEF 50-55%, mild AR, mild , mod MR, mod pulmonary HTN, no pericardial effusion * Acute hypoxic/hypercapnic respiratory failure * Pyruia/hematuria r/o UTI --Urine cx: <10k CFU * COPD * Myelodysplastic syndrome * Type II DM * Hypertension * Nephrolithiasis, non obstructing Plan: * Renal function improved, SCr trending down * Urine cx reviewed; will d/c Rocephin * Lasix 40mg IV x 1 dose again today * Will obtain CXR * Cardiology recommendations noted - TTE reviewed * Pulmonary following * Avoid potential nephrotoxins * Dose medications for renal function * 2g Na restricted diet * AM labs ordered * Strict I/O Subjective Date of service: 03/06/19 Principal diagnosis: COPD exac; resp failure; anemia; MDS; NSTEMI Interval history: Patient reports breathing is slightly improved. Required bipap overnight. Now on 3L. Previously on 4L. He complains of cough Objective - Vital Signs Vital signs: Vital Signs - 12hr 03/05/19 03/05/19 03/05/19 21:51 22:00 23:00 Temperature Pulse Rate 97 H 91 H 76 Respiratory Rate Blood Pressure 144/63 116/50 107/49 O2 Sat by Pulse 97 97 Oximetry 03/05/19 03/06/19 03/06/19 23:59 00:00 00:41 Temperature 98.5 F Pulse Rate 76 95 H Respiratory 32 H Rate Blood Pressure 104/47 107/47 O2 Sat by Pulse 94 100 Oximetry 03/06/19 03/06/19 03/06/19 01:00 02:00 03:00 Temperature Pulse Rate 75 74 73 Respiratory Rate Blood Pressure 111/50 115/49 112/40 O2 Sat by Pulse 97 97 96 Oximetry 03/06/19 03/06/19 03/06/19 04:00 05:00 06:00 Temperature 98.1 F Pulse Rate 72 75 Respiratory Rate Blood Pressure 109/52 118/48 112/41 O2 Sat by Pulse 99 95 93 Oximetry 03/06/19 07:22 Temperature Pulse Rate Respiratory Rate Blood Pressure O2 Sat by Pulse 97 Oximetry - General Appearance General appearance: well-developed, well-nourished EENT: ATNC Respiratory: Present: Wheezes Cardiology: regular, S1S2 Gastrointestinal: normal, no tenderness, no distended Integumentary: no rash, warm and dry Musculoskeletal: other (no edema) Psychiatric: cooperative - Lab 03/06/19 04:45 03/06/19 04:45 Most recent lab results Calcium 8.2 mg/dL (8.4-10.2) L 03/06/19 04:45 Urine Creatinine 75.4 mg/dL (0.1-20.0) H 03/04/19 19:55 Urine Sodium 45 mmol/L 03/04/19 19:55 Urine Total Protein 25 mg/dL (5-11.8) H 03/04/19 19:55 Medications & Allergies - Medications Allergies/Adverse Reactions: Allergies morphine Adverse Reaction (Verified 03/19/18 16:36) HALLUCINATIONS IVP DYE Adverse Reaction (Uncoded 03/19/18 16:36) Hives Home Medications: Home Medications Medication Instructions Recorded Confirmed Last Taken Type Aspirin EC [Aspirin Enteric Coated 81 mg PO QDAY 08/05/15 03/03/19 10 Days Ago History TAB] ~03/18/18 Metoprolol [Lopressor] 100 mg PO DAILY 08/05/15 03/05/19 03/28/18 04:30 History Pravastatin Sodium [Pravastatin] 20 mg PO QHS 08/05/15 03/05/19 03/28/18 04:30 History amLODIPine [Norvasc] 5 mg PO DAILY 08/05/15 03/03/19 03/28/18 04:30 History ALBUTEROL Inhaler(NF) [VENTOLIN 2 puff IH QDAY PRN 03/19/18 03/03/19 Unknown History Inhaler(NF)] Fluticasone [Flonase] 1 spray NS QDAY 03/19/18 03/05/19 03/27/18 History Pywvwgpo-Yntjhyo-Xwhh 149-Hyal 1,500 mg PO BID 03/19/18 03/03/19 10 Days Ago History [Glucosamine-Chondr Complex Tab] ~03/18/18 Multivit-Min/FA/Lycopen/Lutein 1 each PO DAILY 03/19/18 03/05/19 10 Days Ago History [Centrum Silver Tablet] ~03/18/18 [place]-3 Fatty Acids/Fish Oil [Fish 1 each PO DAILY 03/19/18 03/05/19 10 Days Ago History Oil 1,000 mg Capsule] ~03/18/18 Umeclidinium Brm/Vilanterol Tr 1 each IH DAILY 03/19/18 03/05/19 03/28/18 04:30 History [Anoro Ellipta 62.5-25 Mcg INH] Metoprolol Succinate [Toprol Xl] 100 mg PO DAILY 03/03/19 03/05/19 Unknown History Multivit-Min/FA/Lycopen/Lutein 1 each PO DAILY 03/03/19 03/05/19 Unknown History [Centrum Silver Tablet] Active Medications: Generic Name Dose Route Start Last Admin Trade Name Freq PRN Reason Stop Dose Admin Acetaminophen 650 mg 03/03/19 15:40 Tylenol PO Q4H PRN Pain MILD(1-3)/Fever >100.5/CUEVAS Albuterol 2.5 mg 03/05/19 16:38 Proventil IH Q4HRT PRN Shortness Of Breath Atorvastatin Calcium 10 mg 03/03/19 22:00 03/05/19 21:52 Atorvastatin PO 10 mg QHS KENYETTA Administration Ceftriaxone Sodium 1 gm in 50 mls @ 100 mls/hr 03/05/19 13:00 03/05/19 13:30 Rocephin/Ns 1 Gm/50 Ml IV Infused Q24H KENYETTA Infusion Metoprolol Tartrate 12.5 mg 03/03/19 22:00 03/05/19 21:51 Metoprolol PO 12.5 mg BID KENYETTA Administration Ondansetron HCl 4 mg 03/03/19 15:40 Zofran IV Q8H PRN Nausea And Vomiting Sodium Chloride 10 ml 03/03/19 22:00 03/05/19 21:53 Sodium Chloride Flush Syringe 10 Ml IV 10 ml BID KENYETTA Administration Sodium Chloride 10 ml 03/03/19 15:40 03/03/19 17:48 Sodium Chloride Flush Syringe 10 Ml IV 10 ml PRN PRN Administration LINE FLUSH
[2019-03-06] MEDS: METOPROLOL TARTRATE 25 MG TAB PO SCH ×2 (10:10→21:37)
--- NOTE | 2019-03-06 12:01 | Progress Note ---
Assessment and Plan Cont present conservative cardiac management at this time. Consider ischemic evaluation once medically stabilized as OP. Pt may tx out of IMCU to telemetry from cardiology standpoint. Await hematology consultation. The patient has been seen in conjunction with Dr. Vaughn Montejo who agrees with the assessment and plan of care. - Patient Problems (1) Acute and chronic respiratory failure Current Visit: Yes Status: Acute (2) COPD (chronic obstructive pulmonary disease) Current Visit: Yes Status: Chronic (3) Symptomatic anemia Current Visit: Yes Status: Acute (4) Altered mental status Current Visit: Yes Status: Resolved (5) Thrombocytopenia Current Visit: Yes Status: Acute (6) NSTEMI (non-ST elevated myocardial infarction) Current Visit: Yes Status: Acute (7) Abnormal ECG Current Visit: Yes Status: Acute (8) [place] (acute kidney injury) Current Visit: Yes Status: Acute (9) Diabetes Current Visit: Yes Status: Chronic (10) Myelodysplastic syndrome Current Visit: Yes Status: Chronic (11) History of colon cancer Current Visit: Yes Status: Chronic (12) Tobacco use Current Visit: Yes Status: Chronic Subjective Date of service: 03/06/19 Principal diagnosis: COPD exac; resp failure; anemia; MDS; NSTEMI Interval history: pt resting in bed, states he is feeling well. in ST HR 100s on tele, no current cardiac complaints. Objective Last Vital Signs Temp 98.1 F 03/06/19 04:00 Pulse 93 H 03/06/19 10:10 Resp 32 H 03/06/19 00:41 BP 117/43 03/06/19 10:10 Pulse Ox 97 03/06/19 07:22 - Physical Examination General: No Apparent Distress HEENT: Positive: PERRL, Normocephaly, Mucus Membranes Moist Neck: Positive: neck supple, trachea midline Cardiac: Positive: Reg Rate and Rhythm, S1/S2 Lungs: Positive: Decreased Breath Sounds Neuro: Positive: Grossly Intact Abdomen: Negative: Tender Skin: Negative: Rash Musculoskeletal: No Pain Extremities: Present: edema (trace BLE) - Labs and Meds CBC 03/06/19 Range/Units 04:45 WBC 2.0 L (4.5-11.0) K/mm3 RBC 2.24 L (3.65-5.03) M/mm3 Hgb 7.0 L (11.8-15.2) gm/dl Hct 21.4 L (35.5-45.6) % Plt Count 48 L (140-440) K/mm3 Comprehensive Metabolic Panel 03/06/19 Range/Units 04:45 Sodium 143 (137-145) mmol/L Potassium 3.7 (3.6-5.0) mmol/L Chloride 105.0 (98-107) mmol/L Carbon Dioxide 27 (22-30) mmol/L BUN 34 H (9-20) mg/dL Creatinine 1.5 (0.8-1.5) mg/dL Glucose 130 H (75-100) mg/dL Calcium 8.2 L (8.4-10.2) mg/dL - Imaging and Cardiology EKG: report reviewed, image reviewed Echo: report reviewed (01/2019: EF 50-55%, pseudonormalization, mild AR, mild , mod MR, mod pulm HTN. 07/2010 showed EF 50-55%, mild LVH, mild MR, mild AR, trivial TR. ) - EKG Sinus rhythms and dysrhythmias: sinus rhythm Repolarization changes or abnormalities: ST or T wave suggestive of ischemia
--- NOTE | 2019-03-06 15:05 | XRay Report ---
CHEST 1 VIEW INDICATION: hypoxia. COMPARISON: 03/03/2019 FINDINGS: Support devices: Left arm PICC terminates in the mid SVC. Heart: Within normal limits. Lungs/Pleura: Mild underlying emphysema is suspected. Pulmonary venous congestion has nearly resolved since the previous exam. No evidence for infiltrate, pleural fluid or pneumothorax. Additional findings: None. IMPRESSION: No acute cardiopulmonary process. Emphysematous changes. Decreased pulmonary venous congestion. Signer Name: Ranulfo Olvera Jr, MD Signed: 03/06/2019 3:00 PM Workstation Name: [id number]
--- NOTE | 2019-03-06 15:20 | Progress Note ---
Assessment and Plan 73 y/o male with known COPD admitted with worsening shortness of breath, acute on chronic respiratory failure most likely secondary to pulmonary edema with low lung reserve and also pancyotopenia. No new recommendations for today. Await Heme eval. 1. Do not feel in overt COPD exacerbation so no need for systemic steroids. 2. Smoking cessation counseling again at bedside 3. Has home O2 already 4. Not overly concerned about pneumonia given rapid improvement. Suggest checking procalcitonin. If normal or negative, would stop abx 5. Has responded well to lasix therapy. 6. Will add PRN neb therapy. Subjective Date of service: 03/06/19 Principal diagnosis: COPD exac; resp failure; anemia; MDS; NSTEMI Interval history: No acute events. Pulm status stable to improving. Objective Vital Signs - 12hr 03/06/19 03/06/19 03/06/19 04:00 05:00 06:00 Temperature 98.1 F Pulse Rate 72 75 Pulse Rate [ From Monitor] Respiratory Rate Blood Pressure 109/52 118/48 112/41 O2 Sat by Pulse 99 95 93 Oximetry 03/06/19 03/06/19 03/06/19 07:00 07:22 08:00 Temperature Pulse Rate 73 73 Pulse Rate [ 101 H From Monitor] Respiratory 18 Rate Blood Pressure 121/47 107/47 O2 Sat by Pulse 97 97 96 Oximetry 03/06/19 03/06/19 03/06/19 09:00 10:00 10:10 Temperature Pulse Rate 99 H 94 H 93 H Pulse Rate [ From Monitor] Respiratory Rate Blood Pressure 107/47 117/49 117/43 O2 Sat by Pulse 89 97 Oximetry 03/06/19 03/06/19 03/06/19 11:00 12:00 13:00 Temperature Pulse Rate 81 116 H 77 Pulse Rate [ 97 H From Monitor] Respiratory 20 Rate Blood Pressure 108/46 108/46 106/46 O2 Sat by Pulse 96 89 96 Oximetry 03/06/19 03/06/19 14:00 15:00 Temperature Pulse Rate 86 78 Pulse Rate [ From Monitor] Respiratory Rate Blood Pressure 106/46 113/44 O2 Sat by Pulse 97 99 Oximetry Constitutional: no acute distress, alert ENT: other (poor dentition) Neck: supple Ascultation: Bilateral: rales (at the bases) Percussion: Bilateral: not dull Tactile fremitus: Bilateral: normal Cardiovascular: regular rate and rhythm Gastrointestinal: normoactive bowel sounds CBC and BMP: 03/06/19 04:45 03/06/19 04:45 ABG, PT/INR, D-dimer: ABG POC ABG pH 7.072 (7.35-7.45) L 03/03/19 06:58 POC ABG pCO2 47.1 (35-45) H 03/03/19 06:58 POC ABG pO2 327 (80-105) H 03/03/19 06:58 POC ABG HCO3 13.7 (22-26 mml/L) 03/03/19 06:58 POC ABG Total CO2 15 (23-27mmol/L) 03/03/19 06:58 POC ABG O2 Sat 100 03/03/19 06:58 PT/INR, D-dimer D-Dimer 891.58 ng/mlDDU (0-234) H 03/03/19 06:58 Abnormal lab findings: Abnormal Labs 03/03/19 03/03/19 03/03/19 06:58 06:58 06:58 WBC RBC 1.99 L Hgb 6.3 L Hct 21.1 L MCV 106 H MCHC 30 L RDW 30.0 H Plt Count 95 L Seg Neuts % (Manual) Lymphocytes % (Manual) Basophils % (Manual) 2.0 H Nucleated RBC % 7.0 H Seg Neutrophils # Man 0.0 L Lymphocytes # (Manual) 0.0 L D-Dimer 891.58 H POC ABG pH POC ABG pCO2 POC ABG pO2 Chloride Carbon Dioxide 15 L BUN 30 H Creatinine 1.8 H Glucose 259 H Calcium AST 55 H Troponin T 0.118 H* NT-Pro-B Natriuret Pep Urine WBC (Auto) Urine Creatinine Urine Total Protein Crossmatch 03/03/19 03/03/19 03/03/19 06:58 07:25 08:40 WBC RBC Hgb Hct MCV MCHC RDW Plt Count Seg Neuts % (Manual) Lymphocytes % (Manual) Basophils % (Manual) Nucleated RBC % Seg Neutrophils # Man Lymphocytes # (Manual) D-Dimer POC ABG pH 7.072 L POC ABG pCO2 47.1 H POC ABG pO2 327 H Chloride Carbon Dioxide BUN Creatinine Glucose Calcium AST Troponin T NT-Pro-B Natriuret Pep 4210 H Urine WBC (Auto) Urine Creatinine Urine Total Protein Crossmatch See Detail 03/03/19 03/03/19 03/04/19 14:51 18:26 04:23 WBC RBC Hgb Hct MCV MCHC RDW Plt Count Seg Neuts % (Manual) Lymphocytes % (Manual) Basophils % (Manual) Nucleated RBC % Seg Neutrophils # Man Lymphocytes # (Manual) D-Dimer POC ABG pH POC ABG pCO2 POC ABG pO2 Chloride Carbon Dioxide BUN 44 H Creatinine 1.8 H Glucose 154 H Calcium 8.3 L AST Troponin T 0.579 H* D 1.150 H* D 1.160 H* NT-Pro-B Natriuret Pep Urine WBC (Auto) Urine Creatinine Urine Total Protein Crossmatch 03/04/19 03/04/19 03/04/19 07:01 19:55 19:55 WBC 2.3 L RBC 2.43 L Hgb 7.6 L Hct 22.9 L MCV 95 H MCHC RDW 23.8 H Plt Count 41 L Seg Neuts % (Manual) 71.0 H Lymphocytes % (Manual) Basophils % (Manual) Nucleated RBC % 1.0 H Seg Neutrophils # Man 1.6 L Lymphocytes # (Manual) 0.4 L D-Dimer POC ABG pH POC ABG pCO2 POC ABG pO2 Chloride Carbon Dioxide BUN Creatinine Glucose Calcium AST Troponin T NT-Pro-B Natriuret Pep Urine WBC (Auto) 21.0 H Urine Creatinine 75.4 H Urine Total Protein 25 H Crossmatch 03/05/19 03/05/19 03/06/19 03:42 03:42 04:45 WBC 2.6 L 2.0 L RBC 2.46 L 2.24 L Hgb 7.8 L 7.0 L Hct 23.6 L 21.4 L MCV 96 H 96 H MCHC RDW 24.0 H 22.8 H Plt Count 52 L 48 L Seg Neuts % (Manual) Lymphocytes % (Manual) 38.0 H Basophils % (Manual) Nucleated RBC % 1.0 H Seg Neutrophils # Man 1.2 L Lymphocytes # (Manual) 0.8 L D-Dimer POC ABG pH POC ABG pCO2 POC ABG pO2 Chloride 107.9 H Carbon Dioxide BUN 47 H Creatinine 1.6 H Glucose 130 H Calcium AST Troponin T NT-Pro-B Natriuret Pep Urine WBC (Auto) Urine Creatinine Urine Total Protein Crossmatch 03/06/19 04:45 WBC RBC Hgb Hct MCV MCHC RDW Plt Count Seg Neuts % (Manual) Lymphocytes % (Manual) Basophils % (Manual) Nucleated RBC % Seg Neutrophils # Man Lymphocytes # (Manual) D-Dimer POC ABG pH POC ABG pCO2 POC ABG pO2 Chloride Carbon Dioxide BUN 34 H Creatinine Glucose 130 H Calcium 8.2 L AST Troponin T NT-Pro-B Natriuret Pep Urine WBC (Auto) Urine Creatinine Urine Total Protein Crossmatch
--- NOTE | 2019-03-06 17:40 | Progress Note ---
Assessment and Plan Assessment and plan: Acute hypoxic resp failure. Etiology likely sec heart failure. CXR with bilateral interstitial opacities and elevated BNP. Check Echo Elevated trop. Cards consulted. Check ECHO MDS. Pt with recent dx of MDS and is followed by [facility]. Heme consult ARf. Nephrology consulted Anemia. Tansfusee PRBCs as needed History Interval history: No new issues overnight Hospitalist Physical - Constitutional Vitals: Temp Pulse Resp BP Pulse Ox 98.1 F 78 20 113/44 99 03/06/19 04:00 03/06/19 15:00 03/06/19 12:00 03/06/19 15:00 03/06/19 15:00 General appearance: Present: mild distress (sob) - EENT Eyes: Present: PERRL, EOM intact ENT: hearing intact, clear oral mucosa, dentition normal - Neck Neck: Present: supple, normal ROM - Respiratory Respiratory effort: normal Respiratory: bilateral: CTA - Cardiovascular Rhythm: regular Heart Sounds: Present: S1 & S2. Absent: gallop, rub - Extremities Extremities: no ischemia, No edema, Full ROM - Abdominal General gastrointestinal: soft, non-tender, non-distended, normal bowel sounds - Integumentary Integumentary: Present: clear, warm, dry - Neurologic Neurologic: CNII-XII intact, moves all extremities Results - Labs CBC & Chem 7: 03/06/19 04:45 03/06/19 04:45 Labs: Laboratory Last Values WBC 2.0 K/mm3 (4.5-11.0) L 03/06/19 04:45 RBC 2.24 M/mm3 (3.65-5.03) L 03/06/19 04:45 Hgb 7.0 gm/dl (11.8-15.2) L 03/06/19 04:45 Hct 21.4 % (35.5-45.6) L 03/06/19 04:45 MCV 96 fl (84-94) H 03/06/19 04:45 MCH 31 pg (28-32) 03/06/19 04:45 MCHC 33 % (32-34) 03/06/19 04:45 RDW 22.8 % (13.2-15.2) H 03/06/19 04:45 Plt Count 48 K/mm3 (140-440) L 03/06/19 04:45 Add Manual Diff Complete 03/06/19 04:45 Total Counted 100 03/06/19 04:45 Seg Neuts % (Manual) 59.0 % (40.0-70.0) 03/06/19 04:45 Band Neutrophils % 0 % 03/06/19 04:45 Lymphocytes % (Manual) 38.0 % (13.4-35.0) H 03/06/19 04:45 Reactive Lymphs % (Man) 0 % 03/06/19 04:45 Monocytes % (Manual) 3.0 % (0.0-7.3) 03/06/19 04:45 Eosinophils % (Manual) 0 % (0.0-4.3) 03/06/19 04:45 Basophils % (Manual) 0 % (0.0-1.8) 03/06/19 04:45 Metamyelocytes % 0 % 03/06/19 04:45 Myelocytes % 0 % 03/06/19 04:45 Promyelocytes % 0 % 03/06/19 04:45 Blast Cells % 0 % 03/06/19 04:45 Nucleated RBC % 1.0 % (0.0-0.9) H 03/06/19 04:45 Seg Neutrophils # Man 1.2 K/mm3 (1.8-7.7) L 03/06/19 04:45 Band Neutrophils # 0.0 K/mm3 03/06/19 04:45 Lymphocytes # (Manual) 0.8 K/mm3 (1.2-5.4) L 03/06/19 04:45 Abs React Lymphs (Man) 0.0 K/mm3 03/06/19 04:45 Monocytes # (Manual) 0.1 K/mm3 (0.0-0.8) 03/06/19 04:45 Eosinophils # (Manual) 0.0 K/mm3 (0.0-0.4) 03/06/19 04:45 Basophils # (Manual) 0.0 K/mm3 (0.0-0.1) 03/06/19 04:45 Metamyelocytes # 0.0 K/mm3 03/06/19 04:45 Myelocytes # 0.0 K/mm3 03/06/19 04:45 Promyelocytes # 0.0 K/mm3 03/06/19 04:45 Blast Cells # 0.0 K/mm3 03/06/19 04:45 WBC Morphology Not Reportable 03/06/19 04:45 Hypersegmented Neuts Not Reportable 03/06/19 04:45 Hyposegmented Neuts Not Reportable 03/06/19 04:45 Hypogranular Neuts Not Reportable 03/06/19 04:45 Smudge Cells Not Reportable 03/06/19 04:45 Toxic Granulation Not Reportable 03/06/19 04:45 Toxic Vacuolation Not Reportable 03/06/19 04:45 Dohle Bodies Not Reportable 03/06/19 04:45 Pelger-Huet Anomaly Not Reportable 03/06/19 04:45 Traci Rods Not Reportable 03/06/19 04:45 Platelet Estimate Consistent w auto 03/06/19 04:45 Clumped Platelets Not Reportable 03/06/19 04:45 Plt Clumps, EDTA Not Reportable 03/06/19 04:45 Large Platelets Not Reportable 03/06/19 04:45 Giant Platelets Not Reportable 03/06/19 04:45 Platelet Satelliting Not Reportable 03/06/19 04:45 Plt Morphology Comment Not Reportable 03/06/19 04:45 RBC Morphology Not Reportable 03/06/19 04:45 Dimorphic RBCs Not Reportable 03/06/19 04:45 Polychromasia Not Reportable 03/06/19 04:45 Hypochromasia Not Reportable 03/06/19 04:45 Poikilocytosis Not Reportable 03/06/19 04:45 Anisocytosis 1+ 03/06/19 04:45 Microcytosis Not Reportable 03/06/19 04:45 Macrocytosis Not Reportable 03/06/19 04:45 Spherocytes Not Reportable 03/06/19 04:45 Pappenheimer Bodies Not Reportable 03/06/19 04:45 Sickle Cells Not Reportable 03/06/19 04:45 Target Cells Not Reportable 03/06/19 04:45 Tear Drop Cells Not Reportable 03/06/19 04:45 Ovalocytes Not Reportable 03/06/19 04:45 Helmet Cells Not Reportable 03/06/19 04:45 Hazel-Geiger Bodies Not Reportable 03/06/19 04:45 [place] Rings Not Reportable 03/06/19 04:45 Jmienez Cells Not Reportable 03/06/19 04:45 Bite Cells Not Reportable 03/06/19 04:45 Crenated Cell Not Reportable 03/06/19 04:45 Elliptocytes Not Reportable 03/06/19 04:45 Acanthocytes (Spur) Not Reportable 03/06/19 04:45 Rouleaux Not Reportable 03/06/19 04:45 Hemoglobin C Crystals Not Reportable 03/06/19 04:45 Schistocytes Not Reportable 03/06/19 04:45 Malaria parasites Not Reportable 03/06/19 04:45 Benjamin Bodies Not Reportable 03/06/19 04:45 Hem Pathologist Commnt No 03/06/19 04:45 D-Dimer 891.58 ng/mlDDU (0-234) H 03/03/19 06:58 POC ABG pH 7.072 (7.35-7.45) L 03/03/19 06:58 POC ABG pCO2 47.1 (35-45) H 03/03/19 06:58 POC ABG pO2 327 (80-105) H 03/03/19 06:58 POC ABG HCO3 13.7 (22-26 mml/L) 03/03/19 06:58 POC ABG Total CO2 15 (23-27mmol/L) 03/03/19 06:58 POC ABG O2 Sat 100 03/03/19 06:58 POC ABG Base Excess -16 ((-2) - (+3)mmol/L) 03/03/19 06:58 FiO2 100 % 03/03/19 06:58 Sodium 143 mmol/L (137-145) 03/06/19 04:45 Potassium 3.7 mmol/L (3.6-5.0) 03/06/19 04:45 Chloride 105.0 mmol/L (98-107) 03/06/19 04:45 Carbon Dioxide 27 mmol/L (22-30) 03/06/19 04:45 Anion Gap 15 mmol/L 03/06/19 04:45 BUN 34 mg/dL (9-20) H 03/06/19 04:45 Creatinine 1.5 mg/dL (0.8-1.5) 03/06/19 04:45 Estimated GFR 46 ml/min 03/06/19 04:45 BUN/Creatinine Ratio 23 % 03/06/19 04:45 Glucose 130 mg/dL (75-100) H 03/06/19 04:45 Calcium 8.2 mg/dL (8.4-10.2) L 03/06/19 04:45 Total Bilirubin 0.90 mg/dL (0.1-1.2) 03/03/19 06:58 AST 55 units/L (5-40) H 03/03/19 06:58 ALT 36 units/L (7-56) 03/03/19 06:58 Alkaline Phosphatase 62 units/L (35-129) 03/03/19 06:58 Ammonia 30.0 umol/L (25-60) 03/03/19 06:58 Troponin T 1.160 ng/mL (0.00-0.029) H* 03/04/19 04:23 NT-Pro-B Natriuret Pep 4210 pg/mL (0-900) H 03/03/19 07:25 Total Protein 7.0 g/dL (6.3-8.2) 03/03/19 06:58 Albumin 4.2 g/dL (3.9-5) 03/03/19 06:58 Albumin/Globulin Ratio 1.5 % 03/03/19 06:58 Triglycerides 46 mg/dL (2-149) 03/03/19 06:58 Cholesterol 114 mg/dL (50-199) 03/03/19 06:58 LDL Cholesterol Direct 68 mg/dL (50-130) 03/03/19 06:58 HDL Cholesterol 51 mg/dL (40-59) 03/03/19 06:58 Cholesterol/HDL Ratio 2.23 % 03/03/19 06:58 TSH 1.590 mlU/mL (0.270-4.200) 03/03/19 06:58 Urine Color Yellow (Yellow) 03/04/19 19:55 Urine Turbidity Clear (Clear) 03/04/19 19:55 Urine pH 5.0 (5.0-7.0) 03/04/19 19:55 Ur Specific [place] 1.014 (1.003-1.030) 03/04/19 19:55 Urine Protein 30 mg/dl mg/dL (Negative) 03/04/19 19:55 Urine Glucose (UA) Neg mg/dL (Negative) 03/04/19 19:55 Urine Ketones Neg mg/dL (Negative) 03/04/19 19:55 Urine Blood Sm (Negative) 03/04/19 19:55 Urine Nitrite Neg (Negative) 03/04/19 19:55 Urine Bilirubin Neg (Negative) 03/04/19 19:55 Urine Urobilinogen < 2.0 mg/dL (<2.0) 03/04/19 19:55 Ur Leukocyte Esterase Sm (Negative) 03/04/19 19:55 Urine WBC (Auto) 21.0 /HPF (0.0-6.0) H 03/04/19 19:55 Urine RBC (Auto) 4.0 /HPF (0.0-6.0) 03/04/19 19:55 U Epithel Cells (Auto) < 1.0 /HPF (0-13.0) 03/04/19 19:55 Urine Mucus Few /HPF 03/04/19 19:55 Urine Creatinine 75.4 mg/dL (0.1-20.0) H 03/04/19 19:55 Protein/Creatinin Ratio 0.33 03/04/19 19:55 Urine Sodium 45 mmol/L 03/04/19 19:55 Urine Total Protein 25 mg/dL (5-11.8) H 03/04/19 19:55 Blood Type O POSITIVE 03/03/19 08:40 Antibody Screen Negative 03/03/19 08:40 Crossmatch See Detail 03/03/19 08:40 Active Medications - Current Medications Current Medications: Generic Name Dose Route Start Last Admin Trade Name Freq PRN Reason Stop Dose Admin Acetaminophen 650 mg 03/03/19 15:40 Tylenol PO Q4H PRN Pain MILD(1-3)/Fever >100.5/CUEVAS Albuterol 2.5 mg 03/05/19 16:38 Proventil IH Q4HRT PRN Shortness Of Breath Atorvastatin Calcium 10 mg 03/03/19 22:00 03/05/19 21:52 Atorvastatin PO 10 mg QHS KENYETTA Administration Metoprolol Tartrate 12.5 mg 03/03/19 22:00 03/06/19 10:10 Metoprolol PO 12.5 mg BID KENYETTA Administration Ondansetron HCl 4 mg 03/03/19 15:40 Zofran IV Q8H PRN Nausea And Vomiting Sodium Chloride 10 ml 03/03/19 22:00 03/06/19 10:11 Sodium Chloride Flush Syringe 10 Ml IV 10 ml BID KENYETTA Administration Sodium Chloride 10 ml 03/03/19 15:40 03/03/19 17:48 Sodium Chloride Flush Syringe 10 Ml IV 10 ml PRN PRN Administration LINE FLUSH
[2019-03-07 08:22] LABS: Hematocrit 21.3 % (35.5-45.6); Hemoglobin 7.3 gm/dl (11.8-15.2); Mean Corpuscular HGB Conc 34 % (32-34); Mean Corpuscular Volume 94 fl (84-94); Red Blood Count 2.28 M/mm3 (3.65-5.03)
--- NOTE | 2019-03-07 08:28 | Event Note ---
Date: 03/07/19 [id number]
[2019-03-07 08:30] LABS: Red Cell Distribution Width 22.5 % (13.2-15.2)
[2019-03-07 08:37] LABS: Calcium 8.5 mg/dL (8.4-10.2)
[2019-03-07] MEDS: METOPROLOL TARTRATE 25 MG TAB PO SCH (09:07)
[2019-03-07 11:50] LABS: Basophils % (Manual) 0 % (0.0-1.8); Eosinophils % (Manual) 0 % (0.0-4.3); Tear Drop Cells Few; Total Cells Counted 100
[2019-03-07 11:51] LABS: Anisocytosis 1+; Hypochromasia Few; Platelet Estimate Consistent w Auto
[2019-03-07 12:01] LABS: Platelet Count 39 K/mm3 (140-440)
--- NOTE | 2019-03-07 14:58 | Progress Note ---
Assessment and Plan 73 y/o male with known COPD admitted with worsening shortness of breath, acute on chronic respiratory failure most likely secondary to pulmonary edema with low lung reserve and also pancyotopenia. No new recommendations for today. Await Heme eval. Weaned to room air. Will sign off. Call if questions. 1. Do not feel in overt COPD exacerbation so no need for systemic steroids. 2. Smoking cessation counseling again at bedside 3. Has home O2 already 4. Not overly concerned about pneumonia given rapid improvement. Suggest checking procalcitonin. If normal or negative, would stop abx 5. Has responded well to lasix therapy. 6. Will add PRN neb therapy. Subjective Date of service: 03/07/19 Principal diagnosis: COPD exac; resp failure; anemia; MDS; NSTEMI Interval history: Transitioned out of IMCU. STable pulm status. Weaned to room air. Objective Vital Signs - 12hr 03/07/19 03/07/19 03/07/19 04:12 09:04 10:00 Temperature 99.1 F 98.2 F Pulse Rate 168 H 61 Respiratory 20 18 18 Rate Blood Pressure 114/47 126/92 O2 Sat by Pulse 98 Oximetry 03/07/19 03/07/19 12:34 12:41 Temperature 98.3 F 98.2 F Pulse Rate 90 61 Respiratory 18 18 Rate Blood Pressure 114/48 148/84 O2 Sat by Pulse 98 100 Oximetry Constitutional: no acute distress, alert ENT: other (poor dentition) Neck: supple Ascultation: Bilateral: rales (at the bases) Percussion: Bilateral: not dull Tactile fremitus: Bilateral: normal Cardiovascular: regular rate and rhythm Gastrointestinal: normoactive bowel sounds CBC and BMP: 03/07/19 07:21 03/07/19 07:21 ABG, PT/INR, D-dimer: ABG POC ABG pH 7.072 (7.35-7.45) L 03/03/19 06:58 POC ABG pCO2 47.1 (35-45) H 03/03/19 06:58 POC ABG pO2 327 (80-105) H 03/03/19 06:58 POC ABG HCO3 13.7 (22-26 mml/L) 03/03/19 06:58 POC ABG Total CO2 15 (23-27mmol/L) 03/03/19 06:58 POC ABG O2 Sat 100 03/03/19 06:58 PT/INR, D-dimer D-Dimer 891.58 ng/mlDDU (0-234) H 03/03/19 06:58 Abnormal lab findings: Abnormal Labs 03/03/19 03/03/19 03/03/19 06:58 06:58 06:58 WBC RBC 1.99 L Hgb 6.3 L Hct 21.1 L MCV 106 H MCHC 30 L RDW 30.0 H Plt Count 95 L Seg Neuts % (Manual) Lymphocytes % (Manual) Basophils % (Manual) 2.0 H Nucleated RBC % 7.0 H Seg Neutrophils # Man 0.0 L Lymphocytes # (Manual) 0.0 L D-Dimer 891.58 H POC ABG pH POC ABG pCO2 POC ABG pO2 Chloride Carbon Dioxide 15 L BUN 30 H Creatinine 1.8 H Glucose 259 H Calcium AST 55 H Troponin T 0.118 H* NT-Pro-B Natriuret Pep Urine WBC (Auto) Urine Creatinine Urine Total Protein Crossmatch 03/03/19 03/03/19 03/03/19 06:58 07:25 08:40 WBC RBC Hgb Hct MCV MCHC RDW Plt Count Seg Neuts % (Manual) Lymphocytes % (Manual) Basophils % (Manual) Nucleated RBC % Seg Neutrophils # Man Lymphocytes # (Manual) D-Dimer POC ABG pH 7.072 L POC ABG pCO2 47.1 H POC ABG pO2 327 H Chloride Carbon Dioxide BUN Creatinine Glucose Calcium AST Troponin T NT-Pro-B Natriuret Pep 4210 H Urine WBC (Auto) Urine Creatinine Urine Total Protein Crossmatch See Detail 03/03/19 03/03/19 03/04/19 14:51 18:26 04:23 WBC RBC Hgb Hct MCV MCHC RDW Plt Count Seg Neuts % (Manual) Lymphocytes % (Manual) Basophils % (Manual) Nucleated RBC % Seg Neutrophils # Man Lymphocytes # (Manual) D-Dimer POC ABG pH POC ABG pCO2 POC ABG pO2 Chloride Carbon Dioxide BUN 44 H Creatinine 1.8 H Glucose 154 H Calcium 8.3 L AST Troponin T 0.579 H* D 1.150 H* D 1.160 H* NT-Pro-B Natriuret Pep Urine WBC (Auto) Urine Creatinine Urine Total Protein Crossmatch 03/04/19 03/04/19 03/04/19 07:01 19:55 19:55 WBC 2.3 L RBC 2.43 L Hgb 7.6 L Hct 22.9 L MCV 95 H MCHC RDW 23.8 H Plt Count 41 L Seg Neuts % (Manual) 71.0 H Lymphocytes % (Manual) Basophils % (Manual) Nucleated RBC % 1.0 H Seg Neutrophils # Man 1.6 L Lymphocytes # (Manual) 0.4 L D-Dimer POC ABG pH POC ABG pCO2 POC ABG pO2 Chloride Carbon Dioxide BUN Creatinine Glucose Calcium AST Troponin T NT-Pro-B Natriuret Pep Urine WBC (Auto) 21.0 H Urine Creatinine 75.4 H Urine Total Protein 25 H Crossmatch 03/05/19 03/05/19 03/06/19 03:42 03:42 04:45 WBC 2.6 L 2.0 L RBC 2.46 L 2.24 L Hgb 7.8 L 7.0 L Hct 23.6 L 21.4 L MCV 96 H 96 H MCHC RDW 24.0 H 22.8 H Plt Count 52 L 48 L Seg Neuts % (Manual) Lymphocytes % (Manual) 38.0 H Basophils % (Manual) Nucleated RBC % 1.0 H Seg Neutrophils # Man 1.2 L Lymphocytes # (Manual) 0.8 L D-Dimer POC ABG pH POC ABG pCO2 POC ABG pO2 Chloride 107.9 H Carbon Dioxide BUN 47 H Creatinine 1.6 H Glucose 130 H Calcium AST Troponin T NT-Pro-B Natriuret Pep Urine WBC (Auto) Urine Creatinine Urine Total Protein Crossmatch 03/06/19 03/07/19 03/07/19 04:45 07:21 07:21 WBC 1.6 L* RBC 2.28 L Hgb 7.3 L Hct 21.3 L MCV MCHC RDW 22.5 H Plt Count 39 L Seg Neuts % (Manual) Lymphocytes % (Manual) 46.0 H Basophils % (Manual) Nucleated RBC % 1.0 H Seg Neutrophils # Man 0.8 L Lymphocytes # (Manual) 0.7 L D-Dimer POC ABG pH POC ABG pCO2 POC ABG pO2 Chloride Carbon Dioxide BUN 34 H 27 H Creatinine Glucose 130 H 113 H Calcium 8.2 L AST Troponin T 0.767 H* D NT-Pro-B Natriuret Pep Urine WBC (Auto) Urine Creatinine Urine Total Protein Crossmatch
--- NOTE | 2019-03-07 15:01 | Progress Note ---
Assessment and Plan Pt was noted to develop paroxysmal atrial fibrillation with RVR this AM which is new onset. On evaluation, he has spontaneously converted back to NSR. Optimize HR - initiate PO cardizem. No systemic AC at this time in setting of significant anemia and thrombocytopenia. Can consider ischemic evaluation once medically stabilized as OP. Await hematology consultation. The patient has been seen in conjunction with Dr. Vaughn Montejo who agrees with the assessment and plan of care. - Patient Problems (1) Paroxysmal atrial fibrillation with RVR Current Visit: Yes Status: Acute (2) Acute and chronic respiratory failure Current Visit: Yes Status: Acute (3) COPD (chronic obstructive pulmonary disease) Current Visit: Yes Status: Chronic (4) Symptomatic anemia Current Visit: Yes Status: Acute (5) Altered mental status Current Visit: Yes Status: Resolved (6) Thrombocytopenia Current Visit: Yes Status: Acute (7) NSTEMI (non-ST elevated myocardial infarction) Current Visit: Yes Status: Acute Plan to address problem: type II (8) Abnormal ECG Current Visit: Yes Status: Acute (9) [place] (acute kidney injury) Current Visit: Yes Status: Acute (10) Diabetes Current Visit: Yes Status: Chronic (11) Myelodysplastic syndrome Current Visit: Yes Status: Chronic (12) History of colon cancer Current Visit: Yes Status: Chronic (13) Tobacco use Current Visit: Yes Status: Chronic Subjective Date of service: 03/07/19 Principal diagnosis: COPD exac; resp failure; anemia; MDS; NSTEMI Interval history: pt resting in bed, he was noted to develop paroxysmal atrial fibrillation with RVR this AM, he c/o palpitations. Objective Last Vital Signs Temp 98.2 F 03/07/19 12:41 Pulse 61 03/07/19 12:41 Resp 18 03/07/19 12:41 BP 148/84 03/07/19 12:41 Pulse Ox 100 03/07/19 12:41 - Physical Examination General: No Apparent Distress HEENT: Positive: PERRL, Normocephaly, Mucus Membranes Moist Neck: Positive: neck supple, trachea midline Cardiac: Positive: Reg Rate and Rhythm, S1/S2 Lungs: Positive: Decreased Breath Sounds Neuro: Positive: Grossly Intact Abdomen: Negative: Tender Skin: Negative: Rash Musculoskeletal: No Pain Extremities: Present: edema (trace BLE) - Labs and Meds CBC 03/07/19 Range/Units 07:21 WBC 1.6 L* (4.5-11.0) K/mm3 RBC 2.28 L (3.65-5.03) M/mm3 Hgb 7.3 L (11.8-15.2) gm/dl Hct 21.3 L (35.5-45.6) % Plt Count 39 L (140-440) K/mm3 Comprehensive Metabolic Panel 03/07/19 Range/Units 07:21 Sodium 141 (137-145) mmol/L Potassium 3.7 (3.6-5.0) mmol/L Chloride 102.4 (98-107) mmol/L Carbon Dioxide 26 (22-30) mmol/L BUN 27 H (9-20) mg/dL Creatinine 1.3 (0.8-1.5) mg/dL Glucose 113 H (75-100) mg/dL Calcium 8.5 (8.4-10.2) mg/dL - Imaging and Cardiology EKG: report reviewed, image reviewed Echo: report reviewed (01/2019: EF 50-55%, pseudonormalization, mild AR, mild , mod MR, mod pulm HTN. 07/2010 showed EF 50-55%, mild LVH, mild MR, mild AR, trivial TR. ) - EKG Sinus rhythms and dysrhythmias: sinus rhythm Repolarization changes or abnormalities: ST or T wave suggestive of ischemia
--- NOTE | 2019-03-07 16:14 | Progress Note ---
Assessment and Plan Assessment and plan: Acute hypoxic resp failure. Etiology likely sec heart failure. CXR with bilateral interstitial opacities and elevated BNP. paroxysmal atrial fibrillation with RVR. New onset. Continue cardizem for rate control. No systemic AC at this time in setting of significant anemia and thrombocytopenia. Elevated trop. Cards consulted. Check ECHO MDS. Await Heme consult ARF. Nephrology consulted Anemia. Transfuse PRBCs as needed History Interval history: No new issues overnight Hospitalist Physical - Constitutional Vitals: Temp Pulse Resp BP Pulse Ox 98.2 F 61 18 148/84 100 03/07/19 12:41 03/07/19 12:41 03/07/19 12:41 03/07/19 12:41 03/07/19 12:41 General appearance: Present: no acute distress - EENT Eyes: Present: PERRL, EOM intact ENT: hearing intact, clear oral mucosa, dentition normal - Neck Neck: Present: supple, normal ROM - Respiratory Respiratory effort: normal Respiratory: bilateral: CTA - Cardiovascular Rhythm: regular Heart Sounds: Present: S1 & S2. Absent: gallop, rub - Extremities Extremities: no ischemia, No edema, Full ROM - Abdominal General gastrointestinal: soft, non-tender, non-distended, normal bowel sounds - Integumentary Integumentary: Present: clear, warm, dry - Neurologic Neurologic: CNII-XII intact, moves all extremities Results - Labs CBC & Chem 7: 03/07/19 07:21 03/07/19 07:21 Labs: Laboratory Last Values WBC 1.6 K/mm3 (4.5-11.0) L* 03/07/19 07:21 RBC 2.28 M/mm3 (3.65-5.03) L 03/07/19 07:21 Hgb 7.3 gm/dl (11.8-15.2) L 03/07/19 07:21 Hct 21.3 % (35.5-45.6) L 03/07/19 07:21 MCV 94 fl (84-94) 03/07/19 07:21 MCH 32 pg (28-32) 03/07/19 07:21 MCHC 34 % (32-34) 03/07/19 07:21 RDW 22.5 % (13.2-15.2) H 03/07/19 07:21 Plt Count 39 K/mm3 (140-440) L 03/07/19 07:21 Add Manual Diff Complete 03/07/19 07:21 Total Counted 100 03/07/19 07:21 Seg Neuts % (Manual) 47.0 % (40.0-70.0) 03/07/19 07:21 Band Neutrophils % 3.0 % 03/07/19 07:21 Lymphocytes % (Manual) 46.0 % (13.4-35.0) H 03/07/19 07:21 Reactive Lymphs % (Man) 0 % 03/07/19 07:21 Monocytes % (Manual) 4.0 % (0.0-7.3) 03/07/19 07:21 Eosinophils % (Manual) 0 % (0.0-4.3) 03/07/19 07:21 Basophils % (Manual) 0 % (0.0-1.8) 03/07/19 07:21 Metamyelocytes % 0 % 03/07/19 07:21 Myelocytes % 0 % 03/07/19 07:21 Promyelocytes % 0 % 03/07/19 07:21 Blast Cells % 0 % 03/07/19 07:21 Nucleated RBC % 1.0 % (0.0-0.9) H 03/07/19 07:21 Seg Neutrophils # Man 0.8 K/mm3 (1.8-7.7) L 03/07/19 07:21 Band Neutrophils # 0.0 K/mm3 03/07/19 07:21 Lymphocytes # (Manual) 0.7 K/mm3 (1.2-5.4) L 03/07/19 07:21 Abs React Lymphs (Man) 0.0 K/mm3 03/07/19 07:21 Monocytes # (Manual) 0.1 K/mm3 (0.0-0.8) 03/07/19 07:21 Eosinophils # (Manual) 0.0 K/mm3 (0.0-0.4) 03/07/19 07:21 Basophils # (Manual) 0.0 K/mm3 (0.0-0.1) 03/07/19 07:21 Metamyelocytes # 0.0 K/mm3 03/07/19 07:21 Myelocytes # 0.0 K/mm3 03/07/19 07:21 Promyelocytes # 0.0 K/mm3 03/07/19 07:21 Blast Cells # 0.0 K/mm3 03/07/19 07:21 WBC Morphology Not Reportable 03/07/19 07:21 Hypersegmented Neuts Not Reportable 03/07/19 07:21 Hyposegmented Neuts Not Reportable 03/07/19 07:21 Hypogranular Neuts Not Reportable 03/07/19 07:21 Smudge Cells Not Reportable 03/07/19 07:21 Toxic Granulation Not Reportable 03/07/19 07:21 Toxic Vacuolation Not Reportable 03/07/19 07:21 Dohle Bodies Not Reportable 03/07/19 07:21 Pelger-Huet Anomaly Not Reportable 03/07/19 07:21 Traci Rods Not Reportable 03/07/19 07:21 Platelet Estimate Consistent w auto 03/07/19 07:21 Clumped Platelets Not Reportable 03/07/19 07:21 Plt Clumps, EDTA Not Reportable 03/07/19 07:21 Large Platelets Not Reportable 03/07/19 07:21 Giant Platelets Not Reportable 03/07/19 07:21 Platelet Satelliting Not Reportable 03/07/19 07:21 Plt Morphology Comment Not Reportable 03/07/19 07:21 RBC Morphology Not Reportable 03/07/19 07:21 Dimorphic RBCs Not Reportable 03/07/19 07:21 Polychromasia Not Reportable 03/07/19 07:21 Hypochromasia Few 03/07/19 07:21 Poikilocytosis Not Reportable 03/07/19 07:21 Anisocytosis 1+ 03/07/19 07:21 Microcytosis Not Reportable 03/07/19 07:21 Macrocytosis Not Reportable 03/07/19 07:21 Spherocytes Not Reportable 03/07/19 07:21 Pappenheimer Bodies Not Reportable 03/07/19 07:21 Sickle Cells Not Reportable 03/07/19 07:21 Target Cells Not Reportable 03/07/19 07:21 Tear Drop Cells Few 03/07/19 07:21 Ovalocytes Not Reportable 03/07/19 07:21 Helmet Cells Not Reportable 03/07/19 07:21 [employer] [employer] Bodies Not Reportable 03/07/19 07:21 [place] Rings Not Reportable 03/07/19 07:21 [place] Cells Not Reportable 03/07/19 07:21 Bite Cells Not Reportable 03/07/19 07:21 Crenated Cell Not Reportable 03/07/19 07:21 Elliptocytes Few 03/07/19 07:21 Acanthocytes (Spur) Not Reportable 03/07/19 07:21 Rouleaux Not Reportable 03/07/19 07:21 Hemoglobin C Crystals Not Reportable 03/07/19 07:21 Schistocytes Not Reportable 03/07/19 07:21 Malaria parasites Not Reportable 03/07/19 07:21 Benjamin Bodies Not Reportable 03/07/19 07:21 Hem Pathologist Commnt No 03/07/19 07:21 D-Dimer 891.58 ng/mlDDU (0-234) H 03/03/19 06:58 POC ABG pH 7.072 (7.35-7.45) L 03/03/19 06:58 POC ABG pCO2 47.1 (35-45) H 03/03/19 06:58 POC ABG pO2 327 (80-105) H 03/03/19 06:58 POC ABG HCO3 13.7 (22-26 mml/L) 03/03/19 06:58 POC ABG Total CO2 15 (23-27mmol/L) 03/03/19 06:58 POC ABG O2 Sat 100 03/03/19 06:58 POC ABG Base Excess -16 ((-2) - (+3)mmol/L) 03/03/19 06:58 FiO2 100 % 03/03/19 06:58 Sodium 141 mmol/L (137-145) 03/07/19 07:21 Potassium 3.7 mmol/L (3.6-5.0) 03/07/19 07:21 Chloride 102.4 mmol/L (98-107) 03/07/19 07:21 Carbon Dioxide 26 mmol/L (22-30) 03/07/19 07:21 Anion Gap 16 mmol/L 03/07/19 07:21 BUN 27 mg/dL (9-20) H 03/07/19 07:21 Creatinine 1.3 mg/dL (0.8-1.5) 03/07/19 07:21 Estimated GFR 54 ml/min 03/07/19 07:21 BUN/Creatinine Ratio 21 % 03/07/19 07:21 Glucose 113 mg/dL (75-100) H 03/07/19 07:21 Calcium 8.5 mg/dL (8.4-10.2) 03/07/19 07:21 Total Bilirubin 0.90 mg/dL (0.1-1.2) 03/03/19 06:58 AST 55 units/L (5-40) H 03/03/19 06:58 ALT 36 units/L (7-56) 03/03/19 06:58 Alkaline Phosphatase 62 units/L (35-129) 03/03/19 06:58 Ammonia 30.0 umol/L (25-60) 03/03/19 06:58 Troponin T 0.767 ng/mL (0.00-0.029) H* D 03/07/19 07:21 NT-Pro-B Natriuret Pep 4210 pg/mL (0-900) H 03/03/19 07:25 Total Protein 7.0 g/dL (6.3-8.2) 03/03/19 06:58 Albumin 4.2 g/dL (3.9-5) 03/03/19 06:58 Albumin/Globulin Ratio 1.5 % 03/03/19 06:58 Triglycerides 46 mg/dL (2-149) 03/03/19 06:58 Cholesterol 114 mg/dL (50-199) 03/03/19 06:58 LDL Cholesterol Direct 68 mg/dL (50-130) 03/03/19 06:58 HDL Cholesterol 51 mg/dL (40-59) 03/03/19 06:58 Cholesterol/HDL Ratio 2.23 % 03/03/19 06:58 TSH 1.590 mlU/mL (0.270-4.200) 03/03/19 06:58 Urine Color Yellow (Yellow) 03/04/19 19:55 Urine Turbidity Clear (Clear) 03/04/19 19:55 Urine pH 5.0 (5.0-7.0) 03/04/19 19:55 Ur Specific [place] 1.014 (1.003-1.030) 03/04/19 19:55 Urine Protein 30 mg/dl mg/dL (Negative) 03/04/19 19:55 Urine Glucose (UA) Neg mg/dL (Negative) 03/04/19 19:55 Urine Ketones Neg mg/dL (Negative) 03/04/19 19:55 Urine Blood Sm (Negative) 03/04/19 19:55 Urine Nitrite Neg (Negative) 03/04/19 19:55 Urine Bilirubin Neg (Negative) 03/04/19 19:55 Urine Urobilinogen < 2.0 mg/dL (<2.0) 03/04/19 19:55 Ur Leukocyte Esterase Sm (Negative) 03/04/19 19:55 Urine WBC (Auto) 21.0 /HPF (0.0-6.0) H 03/04/19 19:55 Urine RBC (Auto) 4.0 /HPF (0.0-6.0) 03/04/19 19:55 U Epithel Cells (Auto) < 1.0 /HPF (0-13.0) 03/04/19 19:55 Urine Mucus Few /HPF 03/04/19 19:55 Urine Creatinine 75.4 mg/dL (0.1-20.0) H 03/04/19 19:55 Protein/Creatinin Ratio 0.33 03/04/19 19:55 Urine Sodium 45 mmol/L 03/04/19 19:55 Urine Total Protein 25 mg/dL (5-11.8) H 03/04/19 19:55 Blood Type O POSITIVE 03/03/19 08:40 Antibody Screen Negative 03/03/19 08:40 Crossmatch See Detail 03/03/19 08:40 Active Medications - Current Medications Current Medications: Generic Name Dose Route Start Last Admin Trade Name Freq PRN Reason Stop Dose Admin Acetaminophen 650 mg 03/03/19 15:40 Tylenol PO Q4H PRN Pain MILD(1-3)/Fever >100.5/CUEVAS Albuterol 2.5 mg 03/05/19 16:38 Proventil IH Q4HRT PRN Shortness Of Breath Atorvastatin Calcium 10 mg 03/03/19 22:00 03/06/19 21:33 Atorvastatin PO 10 mg QHS KENYETTA Administration Diltiazem HCl 60 mg 03/07/19 22:00 Cardizem PO BID KENYETTA Ondansetron HCl 4 mg 03/03/19 15:40 Zofran IV Q8H PRN Nausea And Vomiting Sodium Chloride 10 ml 03/03/19 22:00 12/06/19 09:08 Sodium Chloride Flush Syringe 10 Ml IV 10 ml BID KENYETTA Administration Sodium Chloride 10 ml 03/03/19 15:40 03/03/19 17:48 Sodium Chloride Flush Syringe 10 Ml IV 10 ml PRN PRN Administration LINE FLUSH
--- NOTE | 2019-03-07 16:58 | Progress Note ---
Assessment and Plan Impression: * Nonoliguric [place] vs underlying chronic kidney disease --SCr 1.1mg/dL in Jan 2019 - per outpatient hematology labs --UPCR 330mg (Mar 2019) * NSTEMI --TTE (Mar 2019): LVEF 50-55%, mild AR, mild , mod MR, mod pulmonary HTN, no pericardial effusion * Acute hypoxic/hypercapnic respiratory failure * Pyruia/hematuria r/o UTI --Urine cx: <10k CFU * COPD * Myelodysplastic syndrome * Type II DM * Hypertension * Nephrolithiasis, non obstructing Plan: * Renal function improved, SCr trending down * Hold diuretics today * Cardiology recommendations noted - TTE reviewed * Pulmonary following * Avoid potential nephrotoxins * Dose medications for renal function * 2g Na restricted diet * AM labs ordered * Strict I/O Subjective Date of service: 03/07/19 Principal diagnosis: COPD exac; resp failure; anemia; MDS; NSTEMI Interval history: Patient reports that he ambulated halls today. Objective - Vital Signs Vital signs: Vital Signs - 12hr 03/07/19 03/07/19 03/07/19 09:04 10:00 12:34 Temperature 98.2 F 98.3 F Pulse Rate 168 H 61 90 Respiratory 18 18 18 Rate Blood Pressure 126/92 114/48 O2 Sat by Pulse 98 98 Oximetry 03/07/19 12:41 Temperature 98.2 F Pulse Rate 61 Respiratory 18 Rate Blood Pressure 148/84 O2 Sat by Pulse 100 Oximetry - General Appearance General appearance: well-developed, well-nourished EENT: ATNC Respiratory: Present: Decreased Breath Sounds Cardiology: regular, S1S2 Gastrointestinal: normal, no tenderness, no distended Integumentary: no rash, warm and dry Musculoskeletal: other (no edema) Psychiatric: cooperative - Lab 03/07/19 07:21 03/07/19 07:21 Most recent lab results Calcium 8.5 mg/dL (8.4-10.2) 03/07/19 07:21 Urine Creatinine 75.4 mg/dL (0.1-20.0) H 03/04/19 19:55 Urine Sodium 45 mmol/L 03/04/19 19:55 Urine Total Protein 25 mg/dL (5-11.8) H 03/04/19 19:55 Medications & Allergies - Medications Allergies/Adverse Reactions: Allergies morphine Adverse Reaction (Verified 03/19/18 16:36) HALLUCINATIONS IVP DYE Adverse Reaction (Uncoded 03/19/18 16:36) Hives Home Medications: Home Medications Medication Instructions Recorded Confirmed Last Taken Type Aspirin EC [Aspirin Enteric Coated 81 mg PO QDAY 08/05/15 03/03/19 10 Days Ago History TAB] ~03/18/18 Metoprolol [Lopressor] 100 mg PO DAILY 08/05/15 03/05/19 03/28/18 04:30 History Pravastatin Sodium [Pravastatin] 20 mg PO QHS 08/05/15 03/05/19 03/28/18 04:30 History amLODIPine [Norvasc] 5 mg PO DAILY 08/05/15 03/03/19 03/28/18 04:30 History ALBUTEROL Inhaler(NF) [VENTOLIN 2 puff IH QDAY PRN 03/19/18 03/03/19 Unknown Hi story Inhaler(NF)] Fluticasone [Flonase] 1 spray NS QDAY 03/19/18 03/05/19 03/27/18 History [id number] 149-Hyal 1,500 mg PO BID 03/19/18 03/03/19 10 Days Ago History [Glucosamine-Chondr Complex Tab] ~03/18/18 Multivit-Min/FA/Lycopen/Lutein 1 each PO DAILY 03/19/18 03/05/19 10 Days Ago History [Centrum Silver Tablet] ~03/18/18 [place]-3 Fatty Acids/Fish Oil [Fish 1 each PO DAILY 03/19/18 03/05/19 10 Days Ago History Oil 1,000 mg Capsule] ~03/18/18 Umeclidinium Brm/Vilanterol Tr 1 each IH DAILY 03/19/18 03/05/19 03/28/18 04:30 History [Anoro Ellipta 62.5-25 Mcg INH] Metoprolol Succinate [Toprol Xl] 100 mg PO DAILY 03/03/19 03/05/19 Unknown History Multivit-Min/FA/Lycopen/Lutein 1 each PO DAILY 03/03/19 03/05/19 Unknown History [Centrum Silver Tablet] Active Medications: Generic Name Dose Route Start Last Admin Trade Name Freq PRN Reason Stop Dose Admin Acetaminophen 650 mg 03/03/19 15:40 Tylenol PO Q4H PRN Pain MILD(1-3)/Fever >100.5/CUEVAS Albuterol 2.5 mg 03/05/19 16:38 Proventil IH Q4HRT PRN Shortness Of Breath Atorvastatin Calcium 10 mg 03/03/19 22:00 03/06/19 21:33 Atorvastatin PO 10 mg QHS KENYETTA Administration Diltiazem HCl 60 mg 03/07/19 22:00 Cardizem PO BID KENYETTA Ondansetron HCl 4 mg 03/03/19 15:40 Zofran IV Q8H PRN Nausea And Vomiting Sodium Chloride 10 ml 03/03/19 22:00 03/07/19 09:08 Sodium Chloride Flush Syringe 10 Ml IV 10 ml BID KENYETTA Administration Sodium Chloride 10 ml 03/03/19 15:40 03/03/19 17:48 Sodium Chloride Flush Syringe 10 Ml IV 10 ml PRN PRN Administration LINE FLUSH
[2019-03-07] MEDS: dilTIAZem 60 MG TAB PO SCH (21:22)
--- NOTE | 2019-03-08 08:54 | Progress Note ---
Assessment and Plan Pt was noted to develop paroxysmal atrial fibrillation with RVR yesterday AM which is new onset. On evaluation, he has spontaneously converted back to NSR. Optimize HR - initiate PO cardizem. No systemic AC at this time in setting of significant anemia and thrombocytopenia. pt has hx of colon ca and myelodysplastic synd, chronic tob abuse Can consider ischemic evaluation once medically stabilized as OP. Await hematology consultation. cardiac status stable continue current mgt per pulm,hematol Subjective Date of service: 03/08/19 Principal diagnosis: COPD exac; resp failure; anemia; MDS; NSTEMI Interval history: pt known to me resting quietly vss tele sinus rhythm Objective Vital Signs Temp Pulse Resp BP Pulse Ox 03/08/19 07:37 18 03/08/19 05:15 98.4 F 03/08/19 05:14 76 18 138/50 99 03/08/19 00:05 98.7 F 03/08/19 00:03 81 18 114/31 97 03/07/19 22:00 84 18 03/07/19 20:24 98.9 F 03/07/19 20:22 91 H 18 118/46 99 03/07/19 16:22 97.5 F L 83 18 114/47 98 03/07/19 12:41 98.2 F 61 18 148/84 100 03/07/19 12:34 98.3 F 90 18 114/48 98 03/07/19 10:00 61 18 03/07/19 09:04 98.2 F 168 H 18 126/92 98 - Physical Examination General: No Apparent Distress HEENT: Positive: PERRL, Normocephaly, Mucus Membranes Moist Neck: Positive: neck supple, trachea midline Cardiac: Positive: Reg Rate and Rhythm Lungs: Positive: clear to auscultation Neuro: Positive: Grossly Intact Abdomen: Positive: Soft. Negative: Tender Skin: Negative: Rash Extremities: Present: edema (trace BLE) - Labs and Meds CBC 03/07/19 Range/Units 07:21 Plt Count 39 L (140-440) K/mm3 - Imaging and Cardiology EKG: report reviewed, image reviewed Echo: report reviewed (01/2019: EF 50-55%, pseudonormalization, mild AR, mild , mod MR, mod pulm HTN. 07/2010 showed EF 50-55%, mild LVH, mild MR, mild AR, trivial TR. ) - EKG Sinus rhythms and dysrhythmias: sinus rhythm Repolarization changes or abnormalities: ST or T wave suggestive of ischemia
[2019-03-08 10:36] VITALS: BP 127/44
[2019-03-08] MEDS: dilTIAZem 60 MG TAB PO SCH (10:38)
--- NOTE | 2019-03-08 12:25 | Progress Note ---
Hospitalist Physical - Constitutional Vitals: Temp Pulse Resp BP Pulse Ox 98.4 F 87 18 127/44 98 03/08/19 05:15 03/08/19 10:38 03/08/19 07:37 03/08/19 10:38 03/08/19 09:15 General appearance: Present: no acute distress Results - Labs CBC & Chem 7: 03/07/19 07:21 12 07:21 Labs: Laboratory Last Values WBC 1.6 K/mm3 (4.5-11.0) L* 03/07/19 07:21 RBC 2.28 M/mm3 (3.65-5.03) L 03/07/19 07:21 Hgb 7.3 gm/dl (11.8-15.2) L 03/07/19 07:21 Hct 21.3 % (35.5-45.6) L 03/07/19 07:21 MCV 94 fl (84-94) 03/07/19 07:21 MCH 32 pg (28-32) 03/07/19 07:21 MCHC 34 % (32-34) 03/07/19 07:21 RDW 22.5 % (13.2-15.2) H 03/07/19 07:21 Plt Count 39 K/mm3 (140-440) L 03/07/19 07:21 Add Manual Diff Complete 03/07/19 07:21 Total Counted 100 03/07/19 07:21 Seg Neuts % (Manual) 47.0 % (40.0-70.0) 03/07/19 07:21 Band Neutrophils % 3.0 % 03/07/19 07:21 Lymphocytes % (Manual) 46.0 % (13.4-35.0) H 03/07/19 07:21 Reactive Lymphs % (Man) 0 % 03/07/19 07:21 Monocytes % (Manual) 4.0 % (0.0-7.3) 03/07/19 07:21 Eosinophils % (Manual) 0 % (0.0-4.3) 03/07/19 07:21 Basophils % (Manual) 0 % (0.0-1.8) 03/07/19 07:21 Metamyelocytes % 0 % 03/07/19 07:21 Myelocytes % 0 % 03/07/19 07:21 Promyelocytes % 0 % 03/07/19 07:21 Blast Cells % 0 % 03/07/19 07:21 Nucleated RBC % 1.0 % (0.0-0.9) H 03/07/19 07:21 Seg Neutrophils # Man 0.8 K/mm3 (1.8-7.7) L 03/07/19 07:21 Band Neutrophils # 0.0 K/mm3 03/07/19 07:21 Lymphocytes # (Manual) 0.7 K/mm3 (1.2-5.4) L 03/07/19 07:21 Abs React Lymphs (Man) 0.0 K/mm3 03/07/19 07:21 Monocytes # (Manual) 0.1 K/mm3 (0.0-0.8) 03/07/19 07:21 Eosinophils # (Manual) 0.0 K/mm3 (0.0-0.4) 03/07/19 07:21 Basophils # (Manual) 0.0 K/mm3 (0.0-0.1) 03/07/19 07:21 Metamyelocytes # 0.0 K/mm3 03/07/19 07:21 Myelocytes # 0.0 K/mm3 03/07/19 07:21 Promyelocytes # 0.0 K/mm3 03/07/19 07:21 Blast Cells # 0.0 K/mm3 03/07/19 07:21 WBC Morphology Not Reportable 03/07/19 07:21 Hypersegmented Neuts Not Reportable 03/07/19 07:21 Hyposegmented Neuts Not Reportable 03/07/19 07:21 Hypogranular Neuts Not Reportable 03/07/19 07:21 Smudge Cells Not Reportable 03/07/19 07:21 Toxic Granulation Not Reportable 03/07/19 07:21 Toxic Vacuolation Not Reportable 03/07/19 07:21 Dohle Bodies Not Reportable 03/07/19 07:21 Pelger-Huet Anomaly Not Reportable 03/07/19 07:21 Traci Rods Not Reportable 03/07/19 07:21 Platelet Estimate Consistent w auto 03/07/19 07:21 Clumped Platelets Not Reportable 03/07/19 07:21 Plt Clumps, EDTA Not Reportable 03/07/19 07:21 Large Platelets Not Reportable 03/07/19 07:21 Giant Platelets Not Reportable 03/07/19 07:21 Platelet Satelliting Not Reportable 03/07/19 07:21 Plt Morphology Comment Not Reportable 03/07/19 07:21 RBC Morphology Not Reportable 03/07/19 07:21 Dimorphic RBCs Not Reportable 03/07/19 07:21 Polychromasia Not Reportable 03/07/19 07:21 Hypochromasia Few 03/07/19 07:21 Poikilocytosis Not Reportable 03/07/19 07:21 Anisocytosis 1+ 03/07/19 07:21 Microcytosis Not Reportable 03/07/19 07:21 Macrocytosis Not Reportable 03/07/19 07:21 Spherocytes Not Reportable 03/07/19 07:21 Pappenheimer Bodies Not Reportable 03/07/19 07:21 Sickle Cells Not Reportable 03/07/19 07:21 Target Cells Not Reportable 03/07/19 07:21 Tear Drop Cells Few 03/07/19 07:21 Ovalocytes Not Reportable 03/07/19 07:21 Helmet Cells Not Reportable 03/07/19 07:21 [place] Bodies Not Reportable 03/07/19 07:21 [place] Rings Not Reportable 03/07/19 07:21 [place] Cells Not Reportable 03/07/19 07:21 Bite Cells Not Reportable 03/07/19 07:21 Crenated Cell Not Reportable 03/07/19 07:21 Elliptocytes Few 03/07/19 07:21 Acanthocytes (Spur) Not Reportable 03/07/19 07:21 Rouleaux Not Reportable 03/07/19 07:21 Hemoglobin C Crystals Not Reportable 03/07/19 07:21 Schistocytes Not Reportable 03/07/19 07:21 Malaria parasites Not Reportable 03/07/19 07:21 Benjamin Bodies Not Reportable 03/07/19 07:21 Hem Pathologist Commnt No 03/07/19 07:21 D-Dimer 891.58 ng/mlDDU (0-234) H 03/03/19 06:58 POC ABG pH 7.072 (7.35-7.45) L 03/03/19 06:58 POC ABG pCO2 47.1 (35-45) H 03/03/19 06:58 POC ABG pO2 327 (80-105) H 03/03/19 06:58 POC ABG HCO3 13.7 (22-26 mml/L) 03/03/19 06:58 POC ABG Total CO2 15 (23-27mmol/L) 03/03/19 06:58 POC ABG O2 Sat 100 03/03/19 06:58 POC ABG Base Excess -16 ((-2) - (+3)mmol/L) 03/03/19 06:58 FiO2 100 % 03/03/19 06:58 Sodium 141 mmol/L (137-145) 03/07/19 07:21 Potassium 3.7 mmol/L (3.6-5.0) 03/07/19 07:21 Chloride 102.4 mmol/L (98-107) 03/07/19 07:21 Carbon Dioxide 26 mmol/L (22-30) 03/07/19 07:21 Anion Gap 16 mmol/L 03/07/19 07:21 BUN 27 mg/dL (9-20) H 03/07/19 07:21 Creatinine 1.3 mg/dL (0.8-1.5) 03/07/19 07:21 Estimated GFR 54 ml/min 03/07/19 07:21 BUN/Creatinine Ratio 21 % 03/07/19 07:21 Glucose 113 mg/dL (75-100) H 03/07/19 07:21 Calcium 8.5 mg/dL (8.4-10.2) 03/07/19 07:21 Total Bilirubin 0.90 mg/dL (0.1-1.2) 03/03/19 06:58 AST 55 units/L (5-40) H 03/03/19 06:58 ALT 36 units/L (7-56) 03/03/19 06:58 Alkaline Phosphatase 62 units/L (35-129) 03/03/19 06:58 Ammonia 30.0 umol/L (25-60) 03/03/19 06:58 Troponin T 0.767 ng/mL (0.00-0.029) H* D 03/07/19 07:21 NT-Pro-B Natriuret Pep 4210 pg/mL (0-900) H 03/03/19 07:25 Total Protein 7.0 g/dL (6.3-8.2) 03/03/19 06:58 Albumin 4.2 g/dL (3.9-5) 03/03/19 06:58 Albumin/Globulin Ratio 1.5 % 03/03/19 06:58 Triglycerides 46 mg/dL (2-149) 03/03/19 06:58 Cholesterol 114 mg/dL (50-199) 03/03/19 06:58 LDL Cholesterol Direct 68 mg/dL (50-130) 03/03/19 06:58 HDL Cholesterol 51 mg/dL (40-59) 03/03/19 06:58 Cholesterol/HDL Ratio 2.23 % 03/03/19 06:58 TSH 1.590 mlU/mL (0.270-4.200) 03/03/19 06:58 Urine Color Yellow (Yellow) 03/04/19 19:55 Urine Turbidity Clear (Clear) 03/04/19 19:55 Urine pH 5.0 (5.0-7.0) 03/04/19 19:55 Ur Specific [place] 1.014 (1.003-1.030) 03/04/19 19:55 Urine Protein 30 mg/dl mg/dL (Negative) 03/04/19 19:55 Urine Glucose (UA) Neg mg/dL (Negative) 03/04/19 19:55 Urine Ketones Neg mg/dL (Negative) 03/04/19 19:55 Urine Blood Sm (Negative) 03/04/19 19:55 Urine Nitrite Neg (Negative) 03/04/19 19:55 Urine Bilirubin Neg (Negative) 03/04/19 19:55 Urine Urobilinogen < 2.0 mg/dL (<2.0) 03/04/19 19:55 Ur Leukocyte Esterase Sm (Negative) 03/04/19 19:55 Urine WBC (Auto) 21.0 /HPF (0.0-6.0) H 03/04/19 19:55 Urine RBC (Auto) 4.0 /HPF (0.0-6.0) 03/04/19 19:55 U Epithel Cells (Auto) < 1.0 /HPF (0-13.0) 03/04/19 19:55 Urine Mucus Few /HPF 03/04/19 19:55 Urine Creatinine 75.4 mg/dL (0.1-20.0) H 03/04/19 19:55 Protein/Creatinin Ratio 0.33 03/04/19 19:55 Urine Sodium 45 mmol/L 03/04/19 19:55 Urine Total Protein 25 mg/dL (5-11.8) H 03/04/19 19:55 Blood Type O POSITIVE 03/03/19 08:40 Antibody Screen Negative 03/03/19 08:40 Crossmatch See Detail 03/03/19 08:40 Active Medications - Current Medications Current Medications: Generic Name Dose Route Start Last Admin Trade Name Freq PRN Reason Stop Dose Admin Acetaminophen 650 mg 03/03/19 15:40 Tylenol PO Q4H PRN Pain MILD(1-3)/Fever >100.5/CUEVAS Albuterol 2.5 mg 03/05/19 16:38 Proventil IH Q4HRT PRN Shortness Of Breath Atorvastatin Calcium 10 mg 03/03/19 22:00 03/07/19 21:22 Atorvastatin PO 10 mg QHS KENYETTA Administration Diltiazem HCl 60 mg 03/07/19 22:00 03/08/19 10:38 Cardizem PO 60 mg BID KENYETTA Administration Ondansetron HCl 4 mg 03/03/19 15:40 Zofran IV Q8H PRN Nausea And Vomiting Sodium Chloride 10 ml 03/03/19 22:00 03/08/19 10:38 Sodium Chloride Flush Syringe 10 Ml IV 10 ml BID KENYETTA Administration Sodium Chloride 10 ml 03/03/19 15:40 03/03/19 17:48 Sodium Chloride Flush Syringe 10 Ml IV 10 ml PRN PRN Administration LINE FLUSH
--- NOTE | 2019-03-08 12:28 | Progress Note ---
Assessment and Plan Impression: * Nonoliguric [place] vs underlying chronic kidney disease --SCr 1.1mg/dL in Jan 2019 - per outpatient hematology labs --UPCR 330mg (Mar 2019) * NSTEMI --TTE (Mar 2019): LVEF 50-55%, mild AR, mild , mod MR, mod pulmonary HTN, no pericardial effusion * Acute hypoxic/hypercapnic respiratory failure * Pyruia/hematuria r/o UTI --Urine cx: <10k CFU * COPD * Myelodysplastic syndrome * Type II DM * Hypertension * Nephrolithiasis, non obstructing * Paroxysmal atrial fibrillation with RVR Plan: * Renal function has improved, SCr trending down * Diuresis prn * Cardiology recommendations noted - TTE reviewed * Avoid potential nephrotoxins * Dose medications for renal function * 2g Na restricted diet * Strict I/O * Discharge planning in progress Subjective Date of service: 03/08/19 Principal diagnosis: COPD exac; resp failure; anemia; MDS; NSTEMI Interval history: Patient reports that he is feeling better. Hypoxic w/ ambulation - O2 sat declines to 88%. Home oxygen being arranged. Objective - Vital Signs Vital signs: Vital Signs - 12hr 03/08/19 03/08/19 03/08/19 05:14 05:15 07:37 Temperature 98.4 F Pulse Rate 76 Respiratory 18 18 Rate Blood Pressure 138/50 O2 Sat by Pulse 99 Oximetry 03/08/19 03/08/19 09:15 10:38 Temperature Pulse Rate 87 87 Respiratory Rate Blood Pressure 127/44 127/44 O2 Sat by Pulse 98 Oximetry - General Appearance General appearance: well-developed, well-nourished EENT: ATNC Respiratory: Present: Decreased Breath Sounds Cardiology: regular, S1S2 Gastrointestinal: normal, no tenderness, no distended Integumentary: no rash, warm and dry Neurologic: no focal deficit Musculoskeletal: other (no edema) Psychiatric: cooperative - Lab 03/07/19 07:21 03/08/19 14:09 Most recent lab results Calcium 8.5 mg/dL (8.4-10.2) 03/07/19 07:21 Urine Creatinine 75.4 mg/dL (0.1-20.0) H 03/04/19 19:55 Urine Sodium 45 mmol/L 03/04/19 19:55 Urine Total Protein 25 mg/dL (5-11.8) H 03/04/19 19:55 Medications & Allergies - Medications Allergies/Adverse Reactions: Allergies morphine Adverse Reaction (Verified 03/19/18 16:36) HALLUCINATIONS IVP DYE Adverse Reaction (Uncoded 03/19/18 16:36) Hives Home Medications: Home Medications Medication Instructions Recorded Confirmed Last Taken Type Aspirin EC [Aspirin Enteric Coated 81 mg PO QDAY 08/05/15 03/03/19 10 Days Ago H istory TAB] ~03/18/18 Metoprolol [Lopressor] 100 mg PO DAILY 08/05/15 03/05/19 03/28/18 04:30 History Pravastatin Sodium [Pravastatin] 20 mg PO QHS 08/05/15 03/05/19 03/28/18 04:30 History amLODIPine [Norvasc] 5 mg PO DAILY 08/05/15 03/03/19 03/28/18 04:30 History ALBUTEROL Inhaler(NF) [VENTOLIN 2 puff IH QDAY PRN 03/19/18 03/03/19 Unknown History Inhaler(NF)] Fluticasone [Flonase] 1 spray NS QDAY 03/19/18 03/05/19 03/27/18 History Fulfgshb-Mofgtgo-Jkgc 149-Hyal 1,500 mg PO BID 03/19/18 03/03/19 10 Days Ago History [Glucosamine-Chondr Complex Tab] ~03/18/18 Multivit-Min/FA/Lycopen/Lutein 1 each PO DAILY 03/19/18 03/05/19 10 Days Ago History [Centrum Silver Tablet] ~03/18/18 Broadbent-3 Fatty Acids/Fish Oil [Fish 1 each PO DAILY 03/19/18 03/05/19 10 Days Ago History Oil 1,000 mg Capsule] ~03/18/18 Umeclidinium Brm/Vilanterol Tr 1 each IH DAILY 03/19/18 03/05/19 03/28/18 04:30 History [Anoro Ellipta 62.5-25 Mcg INH] Metoprolol Succinate [Toprol Xl] 100 mg PO DAILY 03/03/19 03/05/19 Unknown History Multivit-Min/FA/Lycopen/Lutein 1 each PO DAILY 03/03/19 03/05/19 Unknown History [Centrum Silver Tablet] Active Medications: Generic Name Dose Route Start Last Admin Trade Name Freq PRN Reason Stop Dose Admin Acetaminophen 650 mg 03/03/19 15:40 Tylenol PO Q4H PRN Pain MILD(1-3)/Fever >100.5/CUEVAS Albuterol 2.5 mg 03/05/19 16:38 Proventil IH Q4HRT PRN Shortness Of Breath Atorvastatin Calcium 10 mg 03/03/19 22:00 03/07/19 21:22 Atorvastatin PO 10 mg QHS KENYETTA Administration Diltiazem HCl 60 mg 03/07/19 22:00 03/08/19 10:38 Cardizem PO 60 mg BID KENYETTA Administration Ondansetron HCl 4 mg 03/03/19 15:40 Zofran IV Q8H PRN Nausea And Vomiting Sodium Chloride 10 ml 03/03/19 22:00 03/08/19 10:38 Sodium Chloride Flush Syringe 10 Ml IV 10 ml BID KENYETTA Administration Sodium Chloride 10 ml 03/03/19 15:40 03/03/19 17:48 Sodium Chloride Flush Syringe 10 Ml IV 10 ml PRN PRN Administration LINE FLUSH
[2019-03-08 14:40] LABS: Calcium 8.3 mg/dL (8.4-10.2)
--- NOTE | 2019-03-08 16:01 | Hem/Onc Progress Note ---
Assessment and Plan 1. Myelodysplastic syndrome being followed by Dr. Luong. There is a plan for chemotherapy. 2. History of colon cancer with liver mets, status post surgery. This was 20 years ago. 3. Anemia secondary to myelodysplastic syndrome, transfusion support given. 4. Leukopenia secondary to myelodysplastic syndrome. 5. Thrombocytopenia secondary to myelodysplastic syndrome, platelet count is slightly low. This may be secondary to medications. I will follow along during the patient's stay and after discharge he will be seen by Dr. Luong in the clinic setting. He came with syncopal episode. Cardiology team, Nephrology team and ICU team has seen the patient. sats were 88% on ambulating wants to go home has o2 - which she uses PRN - Patient Problems (1) Myelodysplastic syndrome Status: Chronic Subjective Date of service: 03/08/19 Principal diagnosis: MDS Interval history: feeling better wants to go home Objective - Exam Narrative Exam: Pain - none General appearance - awake Performance status limited self care Eyes - no icterus ENT - on o2 - on and off LNs cervical not palpable Neck - no LN Respiratory Normal Breath sounds - CTA anteriorly CVS S1 S2 + Extremities no edema General GI Soft Rectal deferred male - deferred Skin warm Musculoskeletal -ambulating Neurologically awake - Constitutional Vitals: Last Vital Signs Temp 98.4 F 03/08/19 05:15 Pulse 87 03/08/19 10:38 Resp 18 03/08/19 07:37 BP 127/44 03/08/19 10:38 Pulse Ox 98 03/08/19 09:15 - Labs Lab Results: Laboratory Results - last 24 hr 03/08/19 14:09 Sodium 139 Potassium 4.0 Chloride 100.0 Carbon Dioxide 23 Anion Gap 20 BUN 25 H Creatinine 1.2 Estimated GFR 59 BUN/Creatinine Ratio 21 Glucose 194 H Calcium 8.3 L Medications & Allergies - Medications Allergies/Adverse Reactions: Allergies morphine Adverse Reaction (Verified 03/19/18 16:36) HALLUCINATIONS IVP DYE Adverse Reaction (Uncoded 03/19/18 16:36) Hives Home Medications: Home Medications Medication Instructions Recorded Confirmed Last Taken Type Aspirin EC [Halfprin EC] 81 mg PO QDAY 08/05/15 03/03/19 10 Days Ago History ~03/18/18 Pravastatin Sodium [Pravastatin] 20 mg PO QHS 05/08/1503/05/19 03/28/18 04:30 History amLODIPine 5 mg PO DAILY 08/05/15 03/03/19 03/28/18 04:30 History ALBUTEROL Inhaler(NF) [VENTOLIN 2 puff IH QDAY PRN 03/19/18 03/03/19 Unknown History Inhaler(NF)] Fluticasone [Flonase] 1 spray NS QDAY 03/19/18 03/05/19 03/27/18 History Znlokzzy-Hlqnvri-Rrip 149-Hyal 1,500 mg PO BID 03/19/18 03/03/19 10 Days Ago History [Glucosamine-Chondr Complex Tab] ~03/18/18 Multivit-Min/FA/Lycopen/Lutein 1 each PO DAILY 03/19/18 03/05/19 10 Days Ago History [Centrum Silver Tablet] ~03/18/18 Vesuvius-3 Fatty Acids/Fish Oil [Fish 1 each PO DAILY 03/19/18 03/05/19 10 Days Ago History Oil 1,000 mg Capsule] ~03/18/18 Umeclidinium Brm/Vilanterol Tr 1 each IH DAILY 03/19/18 03/05/19 03/28/18 04:30 History [Anoro Ellipta 62.5-25 Mcg INH] Metoprolol Succinate [Toprol Xl] 100 mg PO DAILY 03/03/19 03/05/19 Unknown History Multivit-Min/FA/Lycopen/Lutein 1 each PO DAILY 03/03/19 03/05/19 Unknown History [Centrum Silver Tablet] Active Medications: Generic Name Dose Route Start Last Admin Trade Name Freq PRN Reason Stop Dose Admin Acetaminophen 650 mg 03/03/19 15:40 Tylenol PO Q4H PRN Pain MILD(1-3)/Fever >100.5/CUEVAS Albuterol 2.5 mg 03/05/19 16:38 Proventil IH Q4HRT PRN Shortness Of Breath Atorvastatin Calcium 10 mg 03/03/19 22:00 03/07/19 21:22 Atorvastatin PO 10 mg QHS KENYETTA Administration Diltiazem HCl 60 mg 03/07/19 22:00 03/08/19 10:38 Cardizem PO 60 mg BID KENYETTA Administration Ondansetron HCl 4 mg 03/03/19 15:40 Zofran IV Q8H PRN Nausea And Vomiting Sodium Chloride 10 ml 03/03/19 22:00 03/08/19 10:38 Sodium Chloride Flush Syringe 10 Ml IV 10 ml BID KENYETTA Administration Sodium Chloride 10 ml 03/03/19 15:40 03/03/19 17:48 Sodium Chloride Flush Syringe 10 Ml IV 10 ml PRN PRN Administration LINE FLUSH
--- NOTE | 2019-03-08 16:13 | Progress Note ---
Assessment and Plan 73 y/o male with known COPD admitted with worsening shortness of breath, acute on chronic respiratory failure most likely secondary to pulmonary edema with low lung reserve and also pancyotopenia. No new recommendations for today. Await Heme eval. Weaned to room air. Will sign off. Call if questions. 1. Do not feel in overt COPD exacerbation so no need for systemic steroids. 2. Smoking cessation counseling again at bedside 3. Has home O2 already 4. Not overly concerned about pneumonia given rapid improvement. Suggest checking procalcitonin. If normal or negative, would stop abx 5. Has responded well to lasix therapy. 6. Will add PRN neb therapy. Subjective Date of service: 03/08/19 Principal diagnosis: COPD exac; resp failure; anemia; MDS; NSTEMI Interval history: Remains on room air. Stable. Objective Vital Signs - 12hr 03/08/19 03/08/19 03/08/19 05:14 05:15 07:37 Temperature 98.4 F Pulse Rate 76 Respiratory 18 18 Rate Blood Pressure 138/50 O2 Sat by Pulse 99 Oximetry 03/08/19 03/08/19 09:15 10:38 Temperature Pulse Rate 87 87 Respiratory Rate Blood Pressure 127/44 127/44 O2 Sat by Pulse 98 Oximetry Constitutional: no acute distress, alert ENT: other (poor dentition) Neck: supple Ascultation: Bilateral: rales (at the bases) Percussion: Bilateral: not dull Tactile fremitus: Bilateral: normal Cardiovascular: regular rate and rhythm Gastrointestinal: normoactive bowel sounds CBC and BMP: 03/07/19 07:21 03/08/19 14:09 ABG, PT/INR, D-dimer: ABG POC ABG pH 7.072 (7.35-7.45) L 03/03/19 06:58 POC ABG pCO2 47.1 (35-45) H 03/03/19 06:58 POC ABG pO2 327 (80-105) H 03/03/19 06:58 POC ABG HCO3 13.7 (22-26 mml/L) 03/03/19 06:58 POC ABG Total CO2 15 (23-27mmol/L) 03/03/19 06:58 POC ABG O2 Sat 100 03/03/19 06:58 PT/INR, D-dimer D-Dimer 891.58 ng/mlDDU (0-234) H 03/03/19 06:58 Abnormal lab findings: Abnormal Labs 03/03/19 03/03/19 03/03/19 06:58 06:58 06:58 WBC RBC 1.99 L Hgb 6.3 L Hct 21.1 L MCV 106 H MCHC 30 L RDW 30.0 H Plt Count 95 L Seg Neuts % (Manual) Lymphocytes % (Manual) Basophils % (Manual) 2.0 H Nucleated RBC % 7.0 H Seg Neutrophils # Man 0.0 L Lymphocytes # (Manual) 0.0 L D-Dimer 891.58 H POC ABG pH POC ABG pCO2 POC ABG pO2 Chloride Carbon Dioxide 15 L BUN 30 H Creatinine 1.8 H Glucose 259 H Calcium AST 55 H Troponin T 0.118 H* NT-Pro-B Natriuret Pep Urine WBC (Auto) Urine Creatinine Urine Total Protein Crossmatch 03/03/19 03/03/19 03/03/19 06:58 07:25 08:40 WBC RBC Hgb Hct MCV MCHC RDW Plt Count Seg Neuts % (Manual) Lymphocytes % (Manual) Basophils % (Manual) Nucleated RBC % Seg Neutrophils # Man Lymphocytes # (Manual) D-Dimer POC ABG pH 7.072 L POC ABG pCO2 47.1 H POC ABG pO2 327 H Chloride Carbon Dioxide BUN Creatinine Glucose Calcium AST Troponin T NT-Pro-B Natriuret Pep 4210 H Urine WBC (Auto) Urine Creatinine Urine Total Protein Crossmatch See Detail 03/03/19 03/03/19 03/04/19 14:51 18:26 04:23 WBC RBC Hgb Hct MCV MCHC RDW Plt Count Seg Neuts % (Manual) Lymphocytes % (Manual) Basophils % (Manual) Nucleated RBC % Seg Neutrophils # Man Lymphocytes # (Manual) D-Dimer POC ABG pH POC ABG pCO2 POC ABG pO2 Chloride Carbon Dioxide BUN 44 H Creatinine 1.8 H Glucose 154 H Calcium 8.3 L AST Troponin T 0.579 H* D 1.150 H* D 1.160 H* NT-Pro-B Natriuret Pep Urine WBC (Auto) Urine Creatinine Urine Total Protein Crossmatch 03/04/19 03/04/19 03/04/19 07:01 19:55 19:55 WBC 2.3 L RBC 2.43 L Hgb 7.6 L Hct 22.9 L MCV 95 H MCHC RDW 23.8 H Plt Count 41 L Seg Neuts % (Manual) 71.0 H Lymphocytes % (Manual) Basophils % (Manual) Nucleated RBC % 1.0 H Seg Neutrophils # Man 1.6 L Lymphocytes # (Manual) 0.4 L D-Dimer POC ABG pH POC ABG pCO2 POC ABG pO2 Chloride Carbon Dioxide BUN Creatinine Glucose Calcium AST Troponin T NT-Pro-B Natriuret Pep Urine WBC (Auto) 21.0 H Urine Creatinine 75.4 H Urine Total Protein 25 H Crossmatch 03/05/19 03/05/19 03/06/19 03:42 03:42 04:45 WBC 2.6 L 2.0 L RBC 2.46 L 2.24 L Hgb 7.8 L 7.0 L Hct 23.6 L 21.4 L MCV 96 H 96 H MCHC RDW 24.0 H 22.8 H Plt Count 52 L 48 L Seg Neuts % (Manual) Lymphocytes % (Manual) 38.0 H Basophils % (Manual) Nucleated RBC % 1.0 H Seg Neutrophils # Man 1.2 L Lymphocytes # (Manual) 0.8 L D-Dimer POC ABG pH POC ABG pCO2 POC ABG pO2 Chloride 107.9 H Carbon Dioxide BUN 47 H Creatinine 1.6 H Glucose 130 H Calcium AST Troponin T NT-Pro-B Natriuret Pep Urine WBC (Auto) Urine Creatinine Urine Total Protein Crossmatch 03/06/19 03/07/19 03/07/19 04:45 07:21 07:21 WBC 1.6 L* RBC 2.28 L Hgb 7.3 L Hct 21.3 L MCV MCHC RDW 22.5 H Plt Count 39 L Seg Neuts % (Manual) Lymphocytes % (Manual) 46.0 H Basophils % (Manual) Nucleated RBC % 1.0 H Seg Neutrophils # Man 0.8 L Lymphocytes # (Manual) 0.7 L D-Dimer POC ABG pH POC ABG pCO2 POC ABG pO2 Chloride Carbon Dioxide BUN 34 H 27 H Creatinine Glucose 130 H 113 H Calcium 8.2 L AST Troponin T 0.767 H* D NT-Pro-B Natriuret Pep Urine WBC (Auto) Urine Creatinine Urine Total Protein Crossmatch 03/08/19 14:09 WBC RBC Hgb Hct MCV MCHC RDW Plt Count Seg Neuts % (Manual) Lymphocytes % (Manual) Basophils % (Manual) Nucleated RBC % Seg Neutrophils # Man Lymphocytes # (Manual) D-Dimer POC ABG pH POC ABG pCO2 POC ABG pO2 Chloride Carbon Dioxide BUN 25 H Creatinine Glucose 194 H Calcium 8.3 L AST Troponin T NT-Pro-B Natriuret Pep Urine WBC (Auto) Urine Creatinine Urine Total Protein Crossmatch
--- NOTE | 2019-03-08 16:33 | Discharge Summary ---
Providers - Providers Date of Admission: 03/03/19 08:38 Date of discharge: 03/08/19 Attending physician: LAVONNE PRITCHETT 03/03/19 13:18 Consult to Cardiology [CONS] Routine Consulting Provider: MARVIN STONE Reason For Exam: elevated troponin, abnormal ECG 03/03/19 15:40 Consult to Physician [CONS] Routine Comment: Consulting Provider: VAUGHN MARCUM Physician Instructions: Reason For Exam: arf Consult to Physician [CONS] Routine Comment: Consulting Provider: SILVIA WONG Physician Instructions: Reason For Exam: mds 03/06/19 17:40 Consult to Physician [CONS] Routine Comment: Consulting Provider: JUAN WALLACE Physician Instructions: Reason For Exam: mds Primary care physician: [facility] Hospitalization Condition: Fair Hospital course: Patient is 73-year-old male presents to the emergency department via EMS from home as unresponsive. EMS says that he has a elderly who was only able to provide information that he has a history of COPD and myelodysplastic syndrome. He also has a previous history of colon cancer with liver metastasis, but it is unknown whether or not this is in remission. The patient did present altered and unresponsive per ER physician. However within 5 minutes of arrival the patient began talking and became more responsive, although still does displayed some confusion. Patient admits to having oxygen at home for his COPD but has not been using it. Patient initially had a room air pulse ox in the 50s that went up to close to 100% with some bag valve ventilation. Acute hypoxic resp failure. Due to pulmonary edema. Patient evaluated by Pulmonology paroxysmal atrial fibrillation with RVR. New onset. Continue cardizem for rate control. No systemic AC at this time in setting of significant anemia and thrombocytopenia. Elevated trop. Cardiology consulted. Myelodysplastic syndrome. he was evaluated by [facility]. Follow as outpatient [place] due to vasomotor nephropathy. Anemia. s/p 2 unit PRBC transfused Total time spent on discharge, 35 mins Disposition: - TO HOME OR SELFCARE - Discharge Diagnoses (1) Acute metabolic encephalopathy Status: Acute (2) [place] (acute kidney injury) Status: Acute (3) Acute and chronic respiratory failure Status: Acute (4) Anemia requiring transfusions Status: Acute (5) Elevated troponin Status: Acute (6) Paroxysmal atrial fibrillation with RVR Status: Acute (7) Thrombocytopenia Status: Acute (8) COPD (chronic obstructive pulmonary disease) Status: Chronic (9) Diabetes Status: Chronic (10) History of colon cancer Status: Chronic (11) Myelodysplastic syndrome Status: Chronic (12) Tobacco use Status: Chronic Core Measure Documentation - Palliative Care Palliative Care/ Comfort Measures: Not Applicable - Core Measures Any of the following diagnoses?: none Exam - Constitutional Vitals: Temp Pulse Resp BP Pulse Ox 98.4 F 87 18 127/44 98 03/08/19 05:15 03/08/19 10:38 03/08/19 07:37 03/08/19 10:38 03/08/19 09:15 Plan Activity: advance as tolerated Diet: low fat, low cholesterol, low salt Plan of Treatment: 1.Follow up with PCP in 3-5 days. 2.Follow up with Dr. Wong in 2-3 days 3.Follow up with Dr. Mitchell in 1 week 4.Follow up with Dr. Ramsay, cardiology in 1 week 5.Follow up with Dr. avelar, Pulm in 1 week 6.Home Oxygen continuous at 2l/min NC Follow up with: PRIMARY CARE, [Primary Care Provider] - 7 Days
--- NOTE | 2019-03-08 21:14 | Consultation ---
REFERRED BY: Dr. Esteban. REASON FOR CONSULTATION: 1. History of MDS, awaiting chemotherapy start. 2. History of colon cancer many years ago. HISTORY OF PRESENT ILLNESS: I saw the patient. He is a 73-year-old male in the medical floor. He was found unresponsive at home. He was found to be anemic. Transfusion was given. He has a history of COPD, colon cancer was many years ago with liver mets. Surgery was done and he is in remission. For his MDS, there is a plan to start chemotherapy by Dr. Luong in the clinic setting. He came to the hospital because of unresponsiveness. After a short time in the hospital, he became more responsive. During this admission, the patient has been seen by ICU team, Nephrology team and Cardiology team. I have been asked to evaluate regarding the MDS. I spoke to Dr. Luong and there is a plan to start him of chemotherapy. PAST MEDICAL HISTORY: COPD, tobacco usage. Others as above, diabetes, hypertension. PAST SURGICAL HISTORY: Not contributory. SOCIAL HISTORY: Smoking. FAMILY HISTORY: Noncontributory. ALLERGIES: IV DYE. HOME MEDICATIONS: Reviewed. PHYSICAL EXAMINATION: VITAL SIGNS: Temperature 98, pulse 84, respirations 18, BP 118/46. HEENT: Pallor present, no icterus. NECK: No neck lymph nodes. HEART: S1, S2. LUNGS: Decreased air entry. ABDOMEN: Soft. EXTREMITIES: No calf tenderness. LABORATORY DATA: At admission, white cell 5, hemoglobin 6.3, MCV 106, platelet 195, and today, white cell 1.6, hemoglobin 7.3, MCV 94, platelets 39. Potassium is 3.7, creatinine 1.3, calcium 8.5. RADIOLOGY: Head CT was done, nil acute. ASSESSMENT AND PLAN: 1. Myelodysplastic syndrome being followed by Dr. Luong. There is a plan for chemotherapy. 2. History of colon cancer with liver mets, status post surgery. This was 20 years ago. 3. Anemia secondary to myelodysplastic syndrome, transfusion support given. 4. Leukopenia secondary to myelodysplastic syndrome. 5. Thrombocytopenia secondary to myelodysplastic syndrome, platelet count is slightly low. This may be secondary to medications. I will follow along during the patient's stay and discharge and he will be seen by Dr. Luong in the clinic setting. He came with syncopal episode. Cardiology team, Nephrology team and ICU team has seen the patient. JOB# [id number] MORENO/TERRANCE
== END 2019-03-08 17:43 | disposition home or self-care (01) | DRG 280 ==
LOC: ED 06:45 → IMCU 08:38 → 4A 03-06 22:18
PROVIDERS: ADMIT Hospitalist; ATTEND Internal Medicine
PROC: 4A033R1 Measurement of Arterial Saturation, Peripheral, Percutaneous Approach (ICD-10-PCS; principal; 2019-03-03)
PROC: 30233N1 Transfusion of Nonautologous Red Blood Cells into Peripheral Vein, Percutaneous Approach (ICD-10-PCS; 2019-03-03)
PROC: 5A09357 Assistance with Respiratory Ventilation, Less than 24 Consecutive Hours, Continuous Positive Airway Pressure (ICD-10-PCS; 2019-03-03)
PROC: 5A09357 Assistance with Respiratory Ventilation, Less than 24 Consecutive Hours, Continuous Positive Airway Pressure (ICD-10-PCS; 2019-03-04)
PROC: 5A09357 Assistance with Respiratory Ventilation, Less than 24 Consecutive Hours, Continuous Positive Airway Pressure (ICD-10-PCS; 2019-03-05)
PROC: 5A09357 Assistance with Respiratory Ventilation, Less than 24 Consecutive Hours, Continuous Positive Airway Pressure (ICD-10-PCS; 2019-03-06)
DX: I21.4 Non-ST elevation (NSTEMI) myocardial infarction (principal); J96.21 Acute and chronic respiratory failure with hypoxia; N17.0 Acute kidney failure with tubular necrosis; J96.22 Acute and chronic respiratory failure with hypercapnia; D64.9 Anemia, unspecified; R94.31 Abnormal electrocardiogram [ECG] [EKG]; I50.9 Heart failure, unspecified; D69.6 Thrombocytopenia, unspecified; D72.819 Decreased white blood cell count, unspecified; R31.9 Hematuria, unspecified; N20.0 Calculus of kidney; I48.0 Paroxysmal atrial fibrillation; J44.9 Chronic obstructive pulmonary disease, unspecified; E11.9 Type 2 diabetes mellitus without complications; I11.0 Hypertensive heart disease with heart failure; K21.9 Gastro-esophageal reflux disease without esophagitis; F17.200 Nicotine dependence, unspecified, uncomplicated; Z85.038 Personal history of other malignant neoplasm of large intestine; Z88.5 Allergy status to narcotic agent; Z85.05 Personal history of malignant neoplasm of liver; Z91.041 Radiographic dye allergy status; Z79.82 Long term (current) use of aspirin; Z79.899 Other long term (current) drug therapy; Z71.6 Tobacco abuse counseling
CPT/HCPCS: 36415; 36430; 70450; 71045; 76770; 80048; 80053; 80061; 81001; 82140; 82570; 82803; 83880; 84156; 84300; 84443; 84484; 85007; 85025; 85027; 85379; 86850; 86900; 86901; 86920; 87086; 93005; 93010; 93306; 94644; 94660; 94760; G0378; A9270-GY; J0696; J1644; J1940; J2930; J7040; J7050; P9016

== ENCOUNTER 2019-04-02 22:58 | Inpatient (IN) | payer MEDICARE, OTHER ==
[2019-04-02] MEDS ORDERED: FUROSEMIDE 20 MG/2 ML INJ IV ONE (23:54)
--- NOTE | 2019-04-03 00:15 | XRay Report ---
CHEST 1 VIEW INDICATION: respiratiry distress COMPARISON: 03/03/2019 FINDINGS: Support devices: Left PICC line is again in position, but its distal end cannot be identified on this image. Heart: Normal and unchanged Lungs/Pleura: Interstitial disease persists unchanged and is probably chronic. However, there now shady ear to have developed small bilateral pleural effusions. IMPRESSION: 1. Chronic lung disease. Interval development in the past month of small bilateral pleural effusions. Signer Name: Panda Black MD Signed: 04/03/2019 12:10 AM Workstation Name: [id number]
--- NOTE | 2019-04-03 00:54 | Emergency Department Report ---
ED Shortness of Breath HPI - General Chief Complaint: Dyspnea/Respdistress Stated Complaint: GUERRERO Time Seen by Provider: 04/02/19 23:51 Source: patient, EMS Mode of arrival: Stretcher Limitations: No Limitations - History of Present Illness Initial Comments: Patient is a 73-year-old male with past medical history of myelodysplastic syndrome who was recently admitted to the hospital approximately a month ago for anemia or shortness of breath. Patient states that he's had several episodes where his shortness of breath his laboratories had come to the hospital. Patient denies cough fever and congestion. Patient states it is mostly sensation which improve with supplemental oxygen. Patient was given neb treatment and started on CPAP in route secondary to hypoxia. Patient states he is compliant with his Lasix as he does have episodes of pulmonary edema and pleural effusions. Patient is a blood transfusion on his last hospitalization. Patient start chemotherapy next week. Patient was 82% on 2 L when ems arrived -: Gradual, This evening Improves With: oxygen, bronchodilators - Related Data Home Medications Medication Instructions Recorded Confirmed Last Taken Aspirin EC [Halfprin EC] 81 mg PO QDAY 08/05/15 03/03/19 10 Days Ago ~03/18/18 Pravastatin Sodium [Pravastatin] 20 mg PO QHS 08/05/15 03/05/19 03/28/18 04:30 amLODIPine 5 mg PO DAILY 08/05/15 03/03/19 03/28/18 04:30 ALBUTEROL Inhaler(NF) [VENTOLIN 2 puff IH QDAY PRN 03/19/18 03/03/19 Unknown Inhaler(NF)] Fluticasone [Flonase] 1 spray NS QDAY 03/19/18 03/05/19 03/27/18 Hljupuxo-Kxdgvfr-Dbdn 149-Hyal 1,500 mg PO BID 03/19/18 03/03/19 10 Days Ago [Glucosamine-Chondr Complex Tab] ~03/18/18 Multivit-Min/FA/Lycopen/Lutein 1 each PO DAILY 03/19/18 03/05/19 10 Days Ago [Centrum Silver Tablet] ~03/18/18 [place]-3 Fatty Acids/Fish Oil [Fish 1 each PO DAILY 03/19/18 03/05/19 10 Days Ago Oil 1,000 mg Capsule] ~03/18/18 Umeclidinium Brm/Vilanterol Tr 1 each IH DAILY 03/19/18 03/05/19 03/28/18 04:30 [Anoro Ellipta 62.5-25 Mcg INH] Metoprolol Succinate [Toprol Xl] 100 mg PO DAILY 03/03/19 03/05/19 Unknown Multivit-Min/FA/Lycopen/Lutein 1 each PO DAILY 03/03/19 03/05/19 Unknown [Centrum Silver Tablet] Allergies Allergy/AdvReac Type Severity Reaction Status Date / Time morphine AdvReac HALLUCINATI Verified 03/19/18 16:36 ONS IVP DYE AdvReac Hives Uncoded 03/19/18 16:36 ED Review of Systems ROS: Stated complaint: GUERRERO Other details as noted in HPI Comment: All other systems reviewed and negative ED Past Medical Hx - Past Medical History Previous Medical History?: Yes Hx Hypertension: Yes (took antihypertensives this morning) Hx Heart Attack/AMI: No Hx Diabetes: Yes (NO MEDS) Hx GERD: Yes Hx Liver Disease: Yes (remote hx colon cancer with liver met s/p lobectomy) Hx Renal Disease: No Hx Seizures: No Hx Kidney Stones: Yes Hx COPD: Yes (daily anoro and prn albuterol) Hx HIV: No - Social History Smoking Status: Never Smoker - Medications Home Medications: Home Medications Medication Instructions Recorded Confirmed Last Taken Type Aspirin EC [Halfprin EC] 81 mg PO QDAY 08/05/15 03/03/19 10 Days Ago History ~03/18/18 Pravastatin Sodium [Pravastatin] 20 mg PO QHS 08/05/15 03/05/19 03/28/18 04:30 History amLODIPine 5 mg PO DAILY 08/05/15 03/03/19 03/28/18 04:30 History ALBUTEROL Inhaler(NF) [VENTOLIN 2 puff IH QDAY PRN 03/19/18 03/03/19 Unknown History Inhaler(NF)] Fluticasone [Flonase] 1 spray NS QDAY 03/19/18 03/05/19 03/27/18 History Beayxctl-Eedtprh-Bxnt 149-Hyal 1,500 mg PO BID 03/19/18 03/03/19 10 Days Ago History [Glucosamine-Chondr Complex Tab] ~03/18/18 Multivit-Min/FA/Lycopen/Lutein 1 each PO DAILY 03/19/18 03/05/19 10 Days Ago History [Centrum Silver Tablet] ~03/18/18 [place]-3 Fatty Acids/Fish Oil [Fish 1 each PO DAILY 03/19/18 03/05/19 10 Days Ago History Oil 1,000 mg Capsule] ~03/18/18 Umeclidinium Brm/Vilanterol Tr 1 each IH DAILY 03/19/18 03/05/19 03/28/18 04:30 History [Anoro Ellipta 62.5-25 Mcg INH] Metoprolol Succinate [Toprol Xl] 100 mg PO DAILY 03/03/19 03/05/19 Unknown History Multivit-Min/FA/Lycopen/Lutein 1 each PO DAILY 03/03/19 03/05/19 Unknown History [Centrum Silver Tablet] ED Physical Exam - General Limitations: No Limitations General appearance: alert, in no apparent distress - Head Head exam: Present: atraumatic, normocephalic - Eye Eye exam: Present: normal appearance, PERRL, EOMI - ENT ENT exam: Present: mucous membranes moist - Neck Neck exam: Present: normal inspection - Respiratory Respiratory exam: Present: wheezes (mild), prolonged expiratory, other (states now she's had treatment and is on the Ventimask and feels much improved). Absent: normal lung sounds bilaterally, respiratory distress - Cardiovascular Cardiovascular Exam: Present: regular rate, normal rhythm, normal heart sounds. Absent: systolic murmur, diastolic murmur, rubs, gallop - GI/Abdominal GI/Abdominal exam: Present: soft, normal bowel sounds. Absent: distended, tenderness, guarding - Rectal Rectal exam: Present: deferred - Extremities Exam Extremities exam: Present: normal inspection - Back Exam Back exam: Present: normal inspection - Neurological Exam Neurological exam: Present: alert, oriented X3 - Psychiatric Psychiatric exam: Present: normal affect, normal mood - Skin Skin exam: Present: warm, dry, intact, normal color. Absent: rash ED Course Vital Signs 04/02/19 23:04 Temperature 98.2 F Respiratory 22 Rate O2 Sat by Pulse 98 Oximetry ED Medical Decision Making - Lab Data Result diagrams: 04/03/19 00:17 04/03/19 00:17 Lab Results 04/03/19 04/03/19 04/03/19 Range/Units 00:17 00:17 00:17 WBC 1.8 L* (4.5-11.0) K/mm3 RBC 1.74 L (3.65-5.03) M/mm3 Hgb 5.4 L* (11.8-15.2) gm/dl Hct 16.3 L* (35.5-45.6) % MCV 94 (84-94) fl MCH 31 (28-32) pg MCHC 33 (32-34) % RDW 23.8 H (13.2-15.2) % Plt Count 67 L (140-440) K/mm3 PT 14.9 (12.2-14.9) Sec. INR 1.15 H (0.87-1.13) APTT 25.8 (24.2-36.6) Sec. Sodium 140 (137-145) mmol/L Potassium 3.8 (3.6-5.0) mmol/L Chloride 100.9 (98-107) mmol/L Carbon Dioxide 24 (22-30) mmol/L Anion Gap 19 mmol/L BUN 28 H (9-20) mg/dL Creatinine 1.4 (0.8-1.5) mg/dL Estimated GFR 50 ml/min BUN/Creatinine Ratio 20 % Glucose 183 H (75-100) mg/dL Calcium 8.8 (8.4-10.2) mg/dL NT-Pro-B Natriuret Pep 1658 H (0-900) pg/mL - Radiology Data CHEST 1 VIEW INDICATION: respiratiry distress COMPARISON: 03/03/2019 FINDINGS: Support devices: Left PICC line is again in position, but its distal end cannot be identified on this image. Heart: Normal and unchanged Lungs/Pleura: Interstitial disease persists unchanged and is probably chronic. However, there now appear to have developed small bilateral pleural effusions. IMPRESSION: 1. Chronic lung disease. Interval development in the past month of small bilateral pleural effusions. Signer Name: Panda Black MD Signed: 04/03/2019 12:10 AM Workstation Name: [id number] - Medical Decision Making She was hypoxic at home is improved after neb treatment and being placed on a Ventimask. Patient's satting 100% currently. Patient does have worsening anemia and his hemoglobin dropped to 5.4. Blood transfusion and alert. Patient to be admitted to the hospitalist service for further management\ Critical care attestation.: If time is entered above; I have spent that time in minutes in the direct care of this critically ill patient, excluding procedure time. ED Disposition Clinical Impression: Myelodysplastic syndrome, Pancytopenia, Anemia requiring transfusions, Symptomatic anemia Disposition: OP ADMIT IP TO THIS HOSP Is pt being admited?: Yes Does the pt Need Aspirin: No Condition: Stable Time of Disposition: 01:34
[2019-04-03 00:58] LABS: Mean Corpuscular HGB Conc 33 % (32-34); Mean Corpuscular Volume 94 fl (84-94); Red Blood Count 1.74 M/mm3 (3.65-5.03)
[2019-04-03 01:06] LABS: INR 1.15 (0.87-1.13)
[2019-04-03 01:07] LABS: Partial Thromboplastin Time 25.8 Sec. (24.2-36.6)
[2019-04-03 01:09] LABS: Hematocrit 16.3 % (35.5-45.6); Hemoglobin 5.4 gm/dl (11.8-15.2); Platelet Count 67 K/mm3 (140-440); Red Cell Distribution Width 23.8 % (13.2-15.2)
[2019-04-03] MEDS ORDERED: SODIUM CHLORIDE 0.9% 500 ML 500 ML IV ONE ×3 (01:12→06:00)
[2019-04-03 01:14] LABS: Calcium 8.8 mg/dL (8.4-10.2)
[2019-04-03] MEDS ORDERED: ONDANSETRON 4 MG/2 ML INJ IV PRN (02:42)
[2019-04-03] MEDS ORDERED: ACETAMINOPHEN 325 MG TAB PO PRN (02:42)
--- NOTE | 2019-04-03 02:45 | History and Physical Report ---
History of Present Illness History of present illness: 73-year-old man with a history of myelodysplastic syndrome diagnosed 3 months ago, COPD, hypertension, GERD, liver disease, colon cancer with mets comes emergency room with complaints of shortness of breath that started tonight. Also complains of fatigue, generalized pain which is chronic. The patient has an appointment tomorrow to meet with his oncologist to discuss treatment for myelodysplastic syndrome. Since he was diagnosed he is been transfused twice for anemia. He has chronic lower extremity allyson managed on Lasix ,patient is being admitted to be transfused Review of systems Constitutional: no weight loss, chills, fever Ears, eyes, nose, mouth and throat: no nasal congestion, no nasal discharge, no sinus pressure, no vision change, no red eye. Neck: No neck pain or rigidity. Cardiovascular: no chest pain, palpitations Respiratory: no cough Gastrointestinal: no hematochezia, abdominal pain Genitourinary : no frequency , no hematuria Musculoskeletal: no joint swelling or muscle ache Integumentary: no rash, no pruritis Neurological: no parathesias, no numbness, no focal weakness Endocrine: no cold or heat intolerance, no polyuria or polydipsia Hematologic/Lymphatic: no easy bruising, no easy bleeding, no gland swelling Allergic/Immunologic: no urticaria, no angioedema. PAST MEDICAL HISTORY: Hypertension, myelodysplastic syndrome diagnosed 3 months ago, COPD, hypertension, GERD, liver disease, colon cancer with mets PAST SURGICAL HISTORY: Part of the colon removed with right lobe of the liver SOCIAL HISTORY: No alcohol, no drugs, smoke 1 pack a day FAMILY HISTORY: Hypertension Medications and Allergies Allergies Allergy/AdvReac Type Severity Reaction Status Date / Time morphine AdvReac HALLUCINATI Verified 03/19/18 16:36 ONS IVP DYE AdvReac Hives Uncoded 03/19/18 16:36 Home Medications Medication Instructions Recorded Confirmed Last Taken Type Aspirin EC [Halfprin EC] 81 mg PO QDAY 08/05/15 04/03/19 10 Days Ago History ~03/18/18 amLODIPine 5 mg PO DAILY 08/05/15 04/03/19 04/02/19 10:00 History ALBUTEROL Inhaler(NF) [VENTOLIN 2 puff IH QDAY PRN 03/19/18 04/03/19 Unknown History Inhaler(NF)] Fluticasone [Flonase] 1 spray NS QDAY 03/19/18 04/03/19 04/02/19 10:00 History Opqfbfus-Wvaqfcv-Hnnp 149-Hyal 1,500 mg PO BID 03/19/18 04/03/19 10 Days Ago History [Glucosamine-Chondr Complex Tab] ~03/18/18 [place]-3 Fatty Acids/Fish Oil [Fish 1 each PO DAILY 03/19/18 04/03/19 04/02/19 10:00 History Oil 1,000 mg Capsule] Umeclidinium Brm/Vilanterol Tr 1 each IH DAILY 03/19/18 04/03/19 04/02/19 10:00 History [Anoro Ellipta 62.5-25 Mcg INH] Metoprolol Succinate [Toprol Xl] 100 mg PO DAILY 03/03/19 04/03/19 04/02/19 10:00 History Multivit-Min/FA/Lycopen/Lutein 1 each PO DAILY 03/03/19 04/03/19 Unknown History [Centrum Silver Tablet] Cyanocobalamin (Vitamin B-12) 1,000 mcg IM 4XW 04/03/19 04/03/19 03/26/19 10:00 History [Vitamin B-12] Furosemide [Lasix] 20 mg PO QDAY 04/03/19 04/03/19 04/02/19 10:00 History Pantoprazole [Protonix] 40 mg PO QDAY 04/03/19 04/03/19 04/02/19 10:00 History oxyCODONE /ACETAMINOPHEN [Percocet 1 tab PO Q6HR PRN 04/03/19 04/03/19 Unknown History 5/325] Active Meds: Active Medications Acetaminophen (Tylenol) 650 mg PO Q4H PRN PRN Reason: Pain MILD(1-3)/Fever >100.5/CUEVAS Sodium Chloride (Nacl 0.9% 500 Ml) 500 mls @ 0 mls/hr IV ONCE ONE Stop: 04/03/19 02:40 Ondansetron HCl (Zofran) 4 mg IV Q8H PRN PRN Reason: Nausea And Vomiting Sodium Chloride (Sodium Chloride Flush Syringe 10 Ml) 10 ml IV BID [place] Sodium Chloride (Sodium Chloride Flush Syringe 10 Ml) 10 ml IV PRN PRN PRN Reason: LINE FLUSH Exam - Physical Exam Narrative exam: General Apperance: The patient lying in bed, breathing comfortable HEENT: Normocephalic, atraumatic. Pupils equally round and reactive to light, EOMI, no sclericterus or JVD or thyromegaly or nodule. , no carotid bruit, mucous membranes moist, no exudate or erythema Heart: S1-S2, regular is rhythm Lungs: Decrease breath sound at the bases bilaterally, breathing comfortable Abdomen: Positive bowel sounds, soft, nontender, nondistended, no organomegaly Extremities:+ edema, no cyanosis clubbing Skin: no rash, nodule, warm and dry Neuro: cranial nerves 2-12 intact, speech is fluent, motor/sensory intact - Constitutional Vitals: Temp Pulse Resp BP Pulse Ox 98.2 F 77 15 112/47 100 04/02/19 23:04 04/03/19 02:30 04/03/19 02:30 04/03/19 02:30 04/03/19 02:30 Results - Labs CBC & Chem 7: 04/05/19 04:42 04/04/19 08:50 Labs: Abnormal lab results 04/03/19 04/03/19 04/03/19 Range/Units 00:17 00:17 00:17 WBC 1.8 L* (4.5-11.0) K/mm3 RBC 1.74 L (3.65-5.03) M/mm3 Hgb 5.4 L* (11.8-15.2) gm/dl Hct 16.3 L* (35.5-45.6) % RDW 23.8 H (13.2-15.2) % Plt Count 67 L (140-440) K/mm3 INR 1.15 H (0.87-1.13) BUN 28 H (9-20) mg/dL Glucose 183 H (75-100) mg/dL NT-Pro-B Natriuret Pep 1658 H (0-900) pg/mL Assessment and Plan Assessment Anemia secondary to myelodysplastic syndrome transfuse packed red blood cells scheduled to see his oncologist tomorrow to discuss treatment Shortness of breath multifactorial, anemia, pleural effusion Start Lasix, check cardiac echo, cardiac enzymes COPD,stable colon cancer with mets Addendum Nurse called to see the patient was having shortness of breath Give a dose of steroids, Lasix, placed on BiPAP, check d-dimer Family state that he had an echo done last week at [place] Results unknown, consult cardiology Hold off on echo for now Symptoms improving
[2019-04-03 04:33] LABS: Anisocytosis 1+; Basophils % (Manual) 0 % (0.0-1.8); Eosinophils % (Manual) 0 % (0.0-4.3); Total Cells Counted 100
[2019-04-03 04:34] LABS: Hypochromasia 1+; Platelet Estimate Consistent w Auto
[2019-04-03] MEDS ORDERED: methylPREDNISolone Sod Succinate 40 MG/1 ML INJ IV ONE (05:51)
[2019-04-03] MEDS ORDERED: FUROSEMIDE 20 MG/2 ML INJ IV ONE (05:51)
[2019-04-03] MEDS ORDERED: methylPREDNISolone Sod Succinate 40 MG/1 ML INJ ONE (05:55)
[2019-04-03] MEDS: FUROSEMIDE 20 MG/2 ML INJ IV SCH (09:20)
[2019-04-03] MEDS ORDERED: ALBUTEROL 8.5 GM INHALATION IH PRN (10:55)
[2019-04-03] MEDS ORDERED: ALBUTEROL 2.5 MG/3 ML NEBU IH PRN (11:05)
--- NOTE | 2019-04-03 11:30 | Consultation ---
History of Present Illness Consult date: 04/03/19 Requesting physician: SORAYA MENDES Consult reason: shortness of breath History of present illness: The patient is followed by Dr. Ramsay in our office. He has a history of myelodysplastic syndrome. Yesterday evening, he developed progressive dyspnea. H claims that he has had some leg edema as well. Due to worsening of symptoms, he presented to the emergency department where he was noted to have a hemoglobin of 5.4. Previously, he was scheduled to see his bending roll operator, Dr. Luong, in routine follow up this morning. CXR revealed small bilateral pleural effusions. Past History Past Medical History: cancer (h/o Colon CA with liver mets), COPD, diabetes, hypertension, hyperlipidemia, other (MDS) Past Surgical History: Other (hepatic resection) Social history: denies: smoking, alcohol abuse Family history: denies: CAD Medications and Allergies Allergies Allergy/AdvReac Type Severity Reaction Status Date / Time morphine AdvReac HALLUCINATI Verified 03/19/18 16:36 ONS IVP DYE AdvReac Hives Uncoded 03/19/18 16:36 Home Medications Medication Instructions Recorded Confirmed Last Taken Type Aspirin EC [Halfprin EC] 81 mg PO QDAY 08/05/15 04/03/19 10 Days Ago History ~03/18/18 amLODIPine 5 mg PO DAILY 08/05/15 04/03/19 04/02/19 10:00 History ALBUTEROL Inhaler(NF) [VENTOLIN 2 puff IH QDAY PRN 03/19/18 04/03/19 Unknown History Inhaler(NF)] Fluticasone [Flonase] 1 spray NS QDAY 03/19/18 04/03/19 04/02/19 10:00 History Qmhsevmp-Ewejdek-Cbpp 149-Hyal 1,500 mg PO BID 03/19/18 04/03/19 10 Days Ago History [Glucosamine-Chondr Complex Tab] ~03/18/18 [place]-3 Fatty Acids/Fish Oil [Fish 1 each PO DAILY 03/19/18 04/03/19 04/02/19 10:00 History Oil 1,000 mg Capsule] Umeclidinium Brm/Vilanterol Tr 1 each IH DAILY 03/19/18 04/03/19 04/02/19 10:00 History [Anoro Ellipta 62.5-25 Mcg INH] Metoprolol Succinate [Toprol Xl] 100 mg PO DAILY 03/03/19 04/03/19 04/02/19 10:00 History Multivit-Min/FA/Lycopen/Lutein 1 each PO DAILY 03/03/19 04/03/19 Unknown History [Centrum Silver Tablet] Cyanocobalamin (Vitamin B-12) 1,000 mcg IM 4XW 04/03/19 04/03/19 03/26/19 10:00 History [Vitamin B-12] Furosemide [Lasix] 20 mg PO QDAY 04/03/19 04/03/19 04/02/19 10:00 History Pantoprazole [Protonix] 40 mg PO QDAY 04/03/19 04/03/19 04/02/19 10:00 History oxyCODONE /ACETAMINOPHEN [Percocet 1 tab PO Q6HR PRN 04/03/19 04/03/19 Unknown History 5/325] Active Meds: Active Medications Acetaminophen (Tylenol) 650 mg PO Q4H PRN PRN Reason: Pain MILD(1-3)/Fever >100.5/CUEVAS Albuterol (Proventil) 2.5 mg IH Q6HRT PRN PRN Reason: Shortness Of Breath Albuterol/Ipratropium (Duoneb *Not For Prn Use*) 1 ampul IH Q6HRT [facility] Amlodipine Besylate (Amlodipine) 5 mg PO DAILY [facility] Fish Oil (Fish Oil) 1,000 mg PO DAILY [facility] Fluticasone Propionate (Flonase) 50 mcg NS QDAY [facility] Furosemide (Lasix) 20 mg IV QDAY [facility] Last Admin: 04/03/19 09:20 Dose: 20 mg Documented by: Metoprolol Succinate (Metoprolol Xl) 100 mg PO DAILY [facility] Miscellaneous Medication (Umeclidinium Brm/Vilanterol Tr [Anoro Ellipta 62.5-25 Mcg Inh]) 1 each IH DAILY [facility] Ondansetron HCl (Zofran) 4 mg IV Q8H PRN PRN Reason: Nausea And Vomiting Pravastatin Sodium (Pravachol) 20 mg PO QHS [facility] Sodium Chloride (Sodium Chloride Flush Syringe 10 Ml) 10 ml IV BID [facility] Last Admin: 04/03/19 09:20 Dose: 10 ml Documented by: Sodium Chloride (Sodium Chloride Flush Syringe 10 Ml) 10 ml IV PRN PRN PRN Reason: LINE FLUSH Review of Systems Constitutional: no fever, no chills Ears, nose, mouth and throat: no ear pain, no ear discharge, no sore throat Cardiovascular: shortness of breath, dyspnea on exertion, leg edema, no chest pain, no orthopnea Respiratory: shortness of breath, dyspnea on exertion, no cough, no hemoptysis Gastrointestinal: no abdominal pain, no nausea, no vomiting, no diarrhea, no constipation Genitourinary Male: no dysuria, no urinary frequency Rectal: no pain, no bleeding Musculoskeletal: no neck stiffness, no neck pain, no myalgias Integumentary: no rash, no pruritis Neurological: no weakness, no parathesias, no headaches Endocrine: no cold intolerance, no heat intolerance Hematologic/Lymphatic: no easy bruising, no easy bleeding Allergic/Immunologic: no urticaria, no angioedema Physical Examination Vital Signs Last Vital Signs Temp 98.4 F 04/03/19 11:10 Pulse 81 04/03/19 11:10 Resp 20 04/03/19 11:10 BP 118/49 04/03/19 11:10 Pulse Ox 100 04/03/19 11:10 General appearance: no acute distress HEENT: Positive: EOMI, Normocephaly, Mucus Membranes Moist Neck: Positive: neck supple, trachea midline Cardiac: Positive: Reg Rate and Rhythm, S1/S2 Lungs: Positive: clear to auscultation Neuro: Positive: Grossly Intact Abdomen: Positive: Soft, Active Bowel Sounds. Negative: Tender Skin: Positive: Clear. Negative: Rash Musculoskeletal: Normal Range of Motion Extremities: Present: normal. Absent: edema Results 04/03/19 00:17 04/03/19 00:17 Coagulation 04/03/19 Range/Units 00:17 PT 14.9 (12.2-14.9) Sec. INR 1.15 H (0.87-1.13) APTT 25.8 (24.2-36.6) Sec. CBC 04/03/19 Range/Units 00:17 WBC 1.8 L* (4.5-11.0) K/mm3 RBC 1.74 L (3.65-5.03) M/mm3 Hgb 5.4 L* (11.8-15.2) gm/dl Hct 16.3 L* (35.5-45.6) % Plt Count 67 L (140-440) K/mm3 Comprehensive Metabolic Panel 04/03/19 Range/Units 00:17 Sodium 140 (137-145) mmol/L Potassium 3.8 (3.6-5.0) mmol/L Chloride 100.9 (98-107) mmol/L Carbon Dioxide 24 (22-30) mmol/L BUN 28 H (9-20) mg/dL Creatinine 1.4 (0.8-1.5) mg/dL Glucose 183 H (75-100) mg/dL Calcium 8.8 (8.4-10.2) mg/dL - Imaging and Cardiology EKG: pending Assessment and Plan Intravenous diuretics and PRBC transfusion as you're doing. He probably developed high output heart failure secondary to severe anemia. - Patient Problems (1) Symptomatic anemia Current Visit: Yes Status: Acute (2) Acute heart failure with preserved ejection fraction (HFpEF) Current Visit: Yes Status: Acute (3) Pancytopenia Current Visit: Yes Status: Acute (4) Myelodysplastic syndrome Current Visit: Yes Status: Chronic (5) COPD (chronic obstructive pulmonary disease) Current Visit: Yes Status: Chronic (6) Hypertension Current Visit: Yes Status: Chronic Qualifiers: Hypertension type: essential hypertension Qualified Code(s): I10 - Essential (primary) hypertension (7) Diabetes mellitus Current Visit: Yes Status: Chronic Qualifiers: Diabetes mellitus type: type 2
[2019-04-03] MEDS: IPRATROPIUM/ALBUTEROL SULFATE 3 ML AMPUL.NEB IH SCH ×2 (13:38→20:31)
--- NOTE | 2019-04-03 18:02 | Event Note ---
Date: 04/03/19 Patient seen and examined reports mild improvement close to his baseline. He would rather go home but he is knows that he still short of breath. He reports that he has had decreased exercise tolerance in the past few months. He is agreeable to be monitored overnight and if continues to be stable and at his home dose of oxygen therapy he can be discharged. He thinks that he is supposed to be on Lasix 40 mg at home but apparently has only been taking 20 mg he will follow-up with Dr. Mitchell and Dr. Barraza's nephrology and also processor grain respectively for reconciliation of this medicines.
[2019-04-03 19:39] LABS: Creatine Kinase MB 4.2 ng/mL (0.0-4.0)
[2019-04-03 19:52] LABS: Chol/HDL Ratio 2.36 %
[2019-04-03] MEDS ORDERED: NON-FORMULARY EACH (Pravastatin Sodium [Pravastatin] 20 MG) PO SCH (22:00)
--- NOTE | 2019-04-03 22:14 | Event Note ---
Date: 04/03/19 [id number] MDS due to start chemo at dr merrill office SOB- h/o COPD
--- NOTE | 2019-04-04 02:20 | Consultation ---
REFERRED BY: Dr. Cornejo. REASON FOR CONSULTATION: Anemia, MDS. HISTORY OF PRESENT ILLNESS: I saw the patient, a 73-year-old male in the medical floor. I had seen the patient in early 03/2019. He has history of myelodysplastic syndrome for which he follows Dr. Luong. He was found to be unresponsive in March. At that time, he was found to be anemic, oxygen support was given. He was discharged with a plan to start chemotherapy. Since discharge, the patient said that Procrit has been used, but he is due to start the chemotherapy, the delay may have been because of the holidays. He came to the hospital because of shortness of breath, fatigue, generalized pain. He has history of lower leg swelling in the recent past. He has been admitted a few times for transfusion support. At this time, he is on oxygen support. He is feeling better compared to admission. No headache, no visual disturbances, no ear discharge. No vomiting, no diarrhea, no dysuria. No hematemesis, no hematochezia. PAST MEDICAL HISTORY: Hypertension, MDS and COPD and then GERD, liver disease, history of colon cancer many years ago. SOCIAL HISTORY: History of smoking in the past. FAMILY HISTORY: Noncontributory. ALLERGIES: IV DYE. Past medical history as above. His colon cancer was more than 20 years ago. Transfusion support has been ordered. PHYSICAL EXAMINATION: VITAL SIGNS: Temperature 98, pulse 90, respirations 18, BP 123/49. HEENT: Pallor present, no icterus. NECK: No neck lymph nodes. HEART: S1, S2. LUNGS: Clear to auscultation. Decreased air entry. ABDOMEN: Soft. The patient on oxygen support. EXTREMITIES: No calf tenderness. LABORATORY DATA: White cell 1.8, hemoglobin 5.4, MCV 94, platelets 67. Potassium 3.8, creatinine 1.4, calcium 8.8. RADIOLOGY: Chest x-ray was done. ASSESSMENT AND PLAN: 1. History of myelodysplastic syndrome, anemia. The patient was on Procrit. The patient is due to start chemotherapy. 2. History of colon cancer with mets in the liver. This was about 20 years ago. 3. Anemia secondary to myelodysplastic syndrome. 4. Leukopenia secondary to myelodysplastic syndrome. 5. Thrombocytopenia secondary to myelodysplastic syndrome. 6. On oxygen support. 7. History of chronic obstructive pulmonary disease. 8. History of hypertension. 9. Mention of liver disease. 10. I will follow the patient during inpatient stay. He would need transfusion support and once discharged, hopefully can start chemotherapy, the coming week, with Dr. Luong. JOB# [id number] NM/NTS
[2019-04-04] MEDS: IPRATROPIUM/ALBUTEROL SULFATE 3 ML AMPUL.NEB IH SCH ×4 (03:11→22:12)
[2019-04-04] MEDS: PRAVASTATIN 20 MG TAB PO SCH ×2 (07:15→21:50)
--- NOTE | 2019-04-04 07:26 | Hem/Onc Progress Note ---
Assessment and Plan 1. History of myelodysplastic syndrome, anemia. The patient was on Procrit. The patient is due to start chemotherapy. 2. History of colon cancer with mets in the liver. This was about 20 years ago. 3. Anemia secondary to myelodysplastic syndrome. 4. Leukopenia secondary to myelodysplastic syndrome. 5. Thrombocytopenia secondary to myelodysplastic syndrome. 6. On oxygen support. 7. History of chronic obstructive pulmonary disease. 8. History of hypertension. 9. Mention of liver disease. 10. I will follow the patient during inpatient stay. He would need transfusion support and once discharged, hopefully can start chemotherapy, the coming week, with Dr. Luong. - Patient Problems (1) Myelodysplastic syndrome Status: Chronic Subjective Date of service: 04/04/19 Principal diagnosis: MDS Interval history: s/p PRBC Objective - Exam Narrative Exam: Pain - pt on o2 General appearance - awake Performance status limited self care Eyes - no icterus ENT - no bleeding LNs cervical not palpable Neck - no LN Respiratory Normal - on o2 Breath sounds - CTA anteriorly CVS S1 S2 + Extremities nil acute General GI Soft Rectal deferred male - deferred Skin warm Musculoskeletal - awake Neurologically awake, answers q - Constitutional Vitals: Last Vital Signs Temp 98.2 F 04/04/19 02:23 Pulse 88 04/04/19 03:12 Resp 16 04/04/19 03:12 BP 104/48 04/04/19 02:23 Pulse Ox 98 04/04/19 02:23 - Labs Lab Results: Laboratory Results - last 24 hr 04/03/19 04/03/19 04/03/19 01:18 18:23 18:23 D-Dimer 192.60 Total Creatine Kinase 48 L CK-MB (CK-2) 4.2 H CK-MB (CK-2) Rel Index 8.7 H Troponin T 0.047 H Triglycerides 90 Cholesterol 104 LDL Cholesterol Direct 58 HDL Cholesterol 44 Cholesterol/HDL Ratio 2.36 Blood Type O POSITIVE Antibody Screen Negative Crossmatch See Detail Medications & Allergies - Medications Allergies/Adverse Reactions: Allergies morphine Adverse Reaction (Verified 03/19/18 16:36) HALLUCINATIONS IVP DYE Adverse Reaction (Uncoded 03/19/18 16:36) Hives Home Medications: Home Medications Medication Instructions Recorded Confirmed Last Taken Type Aspirin EC [Halfprin EC] 81 mg PO QDAY 08/05/15 04/03/19 10 Days Ago History ~03/18/18 amLODIPine 5 mg PO DAILY 08/05/15 04/03/19 04/02/19 10:00 History ALBUTEROL Inhaler(NF) [VENTOLIN 2 puff IH QDAY PRN 03/19/18 04/03/19 Unknown History Inhaler(NF)] Fluticasone [Flonase] 1 spray NS QDAY 03/19/18 04/03/19 04/02/19 10:00 History Pqvncltc-Bvqnkaa-Hdob 149-Hyal 1,500 mg PO BID 03/19/18 04/03/19 10 Days Ago History [Glucosamine-Chondr Complex Tab] ~03/18/18 [place]-3 Fatty Acids/Fish Oil [Fish 1 each PO DAILY 03/19/18 04/03/19 04/02/19 10:00 History Oil 1,000 mg Capsule] Umeclidinium Brm/Vilanterol Tr 1 each IH DAILY 03/19/18 04/03/19 04/02/19 10:00 History [Anoro Ellipta 62.5-25 Mcg INH] Metoprolol Succinate [Toprol Xl] 100 mg PO DAILY 03/03/19 04/03/19 04/02/19 10:00 History Multivit-Min/FA/Lycopen/Lutein 1 each PO DAILY 03/03/19 04/03/19 Unknown History [Centrum Silver Tablet] Cyanocobalamin (Vitamin B-12) 1,000 mcg IM 4XW 04/03/19 04/03/19 03/26/19 10:00 History [Vitamin B-12] Furosemide [Lasix] 20 mg PO QDAY 04/03/19 04/03/19 04/02/19 10:00 History Pantoprazole [Protonix] 40 mg PO QDAY 04/03/19 04/03/19 04/02/19 10:00 History oxyCODONE /ACETAMINOPHEN [Percocet 1 tab PO Q6HR PRN 04/03/19 04/03/19 Unknown History 5/325] Active Medications: Generic Name Dose Route Start Last Admin Trade Name Freq PRN Reason Stop Dose Admin Acetaminophen 650 mg 04/03/19 02:42 Tylenol PO Q4H PRN Pain MILD(1-3)/Fever >100.5/CUEVAS Albuterol 2.5 mg 04/03/19 11:05 Proventil IH Q6HRT PRN Shortness Of Breath Albuterol/Ipratropium 1 ampul 04/03/19 14:00 04/04/19 03:11 Duoneb *Not For Prn Use* IH 1 ampul Q6HRT KENYETTA Administration Amlodipine Besylate 5 mg 04/04/19 10:00 Amlodipine PO DAILY [facility] Fish Oil 1,000 mg 04/04/19 10:00 Fish Oil PO DAILY [facility] Fluticasone Propionate 50 mcg 04/04/19 10:00 Flonase NS QDAY KENYETTA Furosemide 20 mg 04/03/19 10:00 04/03/19 09:20 Lasix IV 20 mg QDAY [facility] Administration Metoprolol Succinate 100 mg 04/04/19 10:00 Metoprolol Xl PO DAILY [facility] Miscellaneous Medication 1 each 04/04/19 10:00 Umeclidinium Brm/Vilanterol Tr [Anoro Ellipta 62.5-25 Mcg Inh] IH DAILY [facility] Ondansetron HCl 4 mg 04/03/19 02:42 Zofran IV Q8H PRN Nausea And Vomiting Pravastatin Sodium 20 mg 04/03/19 22:00 04/04/19 07:15 Pravachol PO Not Given QHS [facility] Sodium Chloride 10 ml 04/03/19 10:00 04/03/19 09:20 Sodium Chloride Flush Syringe 10 Ml IV 10 ml BID KENYETTA Administration Sodium Chloride 10 ml 04/03/19 02:42 Sodium Chloride Flush Syringe 10 Ml IV PRN PRN LINE FLUSH
[2019-04-04 09:04] LABS: Mean Corpuscular HGB Conc 33 % (32-34); Mean Corpuscular Volume 93 fl (84-94); Red Blood Count 1.93 M/mm3 (3.65-5.03); Red Cell Distribution Width 17.8 % (13.2-15.2)
[2019-04-04 09:18] LABS: Hematocrit 17.9 % (35.5-45.6)
[2019-04-04 09:19] LABS: Platelet Count 51 K/mm3 (140-440)
[2019-04-04 09:27] LABS: BUN/Creatinine Ratio 25; Blood Urea Nitrogen 28 mg/dL (9-20); Calcium 8.5 mg/dL (8.4-10.2); Hemolysis Index 8
[2019-04-04] MEDS: FUROSEMIDE 20 MG/2 ML INJ IV SCH (09:41)
[2019-04-04] MEDS: amLODIPine 5 MG TAB PO SCH (09:41)
[2019-04-04] MEDS: METOPROLOL SUCCINATE XL 100 MG TAB PO SCH (09:41)
[2019-04-04] MEDS: FLUTICASONE PROPIONATE NASAL SPRAY 16 GM NS SCH (09:41)
[2019-04-04] MEDS: OMEGA-3 FATTY ACIDS/FISH OIL 1 GRAM CAP PO SCH (09:41)
[2019-04-04] MEDS ORDERED: NON-FORMULARY EACH (Umeclidinium Brm/Vilanterol Tr [Anoro Ellipta 62.5-25 Mcg Inh] 1 EACH) IH SCH (10:00)
[2019-04-04 10:26] LABS: Basophils % (Manual) 0 % (0.0-1.8); Eosinophils % (Manual) 0 % (0.0-4.3); Total Cells Counted 100
[2019-04-04 10:27] LABS: Anisocytosis 1+; Hypochromasia Few; Macrocytosis 1+; Ovalocytes Few; Platelet Estimate Consistent w Auto; Tear Drop Cells Few
--- NOTE | 2019-04-04 10:36 | Progress Note ---
Assessment and Plan Intravenous diuretics and PRBC transfusion as you're doing. He probably developed high output heart failure secondary to severe anemia. F/u hematology recs. Pending hematology recs, pt may discharge home from cardiology standpoint. At discharge, recommend conversion of IV lasix to PO lasix 20mg daily. Recommend follow up in our office with Dr. Ramsay within 3-5 days of discharge ([phone]). The patient has been seen in conjunction with Dr. Garcia who agrees with the assessment and plan of care. - Patient Problems (1) Symptomatic anemia Current Visit: Yes Status: Acute (2) Acute heart failure with preserved ejection fraction (HFpEF) Current Visit: Yes Status: Acute (3) Pancytopenia Current Visit: Yes Status: Acute (4) Myelodysplastic syndrome Current Visit: Yes Status: Chronic (5) COPD (chronic obstructive pulmonary disease) Current Visit: Yes Status: Chronic (6) Hypertension Current Visit: Yes Status: Chronic Qualifiers: Hypertension type: essential hypertension Qualified Code(s): I10 - Essential (primary) hypertension (7) Diabetes mellitus Current Visit: Yes Status: Chronic Qualifiers: Diabetes mellitus type: type 2 Subjective Date of service: 04/04/19 Principal diagnosis: anemia Interval history: pt resting in bed, states he is feeling much better today. in SR HR 100s on tele. Objective Last Vital Signs Temp 98.5 F 04/04/19 07:26 Pulse 89 04/04/19 07:26 Resp 18 04/04/19 07:26 BP 122/48 04/04/19 07:26 Pulse Ox 100 04/04/19 07:26 - Physical Examination General: No Apparent Distress HEENT: Positive: EOMI, Normocephaly, Mucus Membranes Moist Neck: Positive: neck supple, trachea midline Cardiac: Positive: Reg Rate and Rhythm, S1/S2 Lungs: Positive: Decreased Breath Sounds Neuro: Positive: Grossly Intact Abdomen: Positive: Soft, Active Bowel Sounds. Negative: Tender Skin: Positive: Clear. Negative: Rash Musculoskeletal: Normal Range of Motion Extremities: Present: normal. Absent: edema - Labs and Meds Cardiac Enzymes 04/03/19 Range/Units 18:23 CK-MB (CK-2) 4.2 H (0.0-4.0) ng/mL Lipids 04/03/19 Range/Units 18:23 Triglycerides 90 (2-149) mg/dL Cholesterol 104 (50-199) mg/dL HDL Cholesterol 44 (40-59) mg/dL Cholesterol/HDL Ratio 2.36 % CBC 04/04/19 Range/Units 08:50 WBC 2.0 L (4.5-11.0) K/mm3 RBC 1.93 L (3.65-5.03) M/mm3 Hgb 6.0 L (11.8-15.2) gm/dl Hct 17.9 L* (35.5-45.6) % Plt Count 51 L (140-440) K/mm3 Comprehensive Metabolic Panel 04/04/19 Range/Units 08:50 Sodium 142 (137-145) mmol/L Potassium 3.7 (3.6-5.0) mmol/L Chloride 101.3 (98-107) mmol/L Carbon Dioxide 25 (22-30) mmol/L BUN 28 H (9-20) mg/dL Creatinine 1.1 (0.8-1.5) mg/dL Glucose 166 H (75-100) mg/dL Calcium 8.5 (8.4-10.2) mg/dL - Imaging and Cardiology EKG: pending
--- NOTE | 2019-04-04 13:40 | Progress Note ---
Assessment and Plan 1. History of myelodysplastic syndrome, anemia. The patient was on Procrit. The patient is due to start chemotherapy as an outpatient with Dr. Luong 2. History of colon cancer with mets in the liver. This was about 20 years ago. 3. Symptomatic Anemia secondary to myelodysplastic syndrome. At this post PRBC transfusion. Repeat hemoglobin and hematocrit this morning is still critically low and needs further transfusion 4. Leukopenia secondary to myelodysplastic syndrome. 5. Thrombocytopenia secondary to myelodysplastic syndrome. 6. Continue On oxygen support. 7. History of chronic obstructive pulmonary disease.-Not in exacerbation. He is a current smoker 8. History of hypertension.-Well-controlled 9. Acute congestive heart failure with preserved ejection fraction Continue Diuretic. Cardiology note reviewed We'll discharge tomorrow if there is further improvement in his hemoglobin Subjective Date of service: 04/04/19 Principal diagnosis: anemia Interval history: Patient is alert and oriented and wants to go home He states that his breathing has improved He offers no specific complaints He denies any chest pain dizziness palpitations and does complain of shortness of breath with exertion [place] any fever or chills dysuria nausea or abdominal pain All interdisciplinary notes reviewed Explained to the patient that he is still severely anemic and needs further blood transfusion Blood transfusion has been ordered by 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 Objective - Constitutional Vitals: Vital Signs - 12hr 04/04/19 04/04/19 04/04/19 02:23 03:12 07:26 Temperature 98.2 F 98.5 F Pulse Rate 95 H 89 Pulse Rate [ 88 Anterior Bilateral] Respiratory 18 18 Rate Respiratory 16 Rate [Anterior Bilateral] Blood Pressure 122/48 Blood Pressure 104/48 [Right] O2 Sat by Pulse 98 100 Oximetry General appearance: Present: no acute distress - EENT Eyes: PERRL, EOM intact ENT: hearing intact, clear oral mucosa - Neck Neck: supple, normal ROM, no masses or JVD - Respiratory Respiratory effort: normal Respiratory: bilateral: CTA, diminished - Cardiovascular Rhythm: regular Heart Sounds: Present: S1 & S2 Extremity abnormal: edema - Gastrointestinal General gastrointestinal: Present: soft, non-tender Rectal Exam: deferred - Genitourinary Male genitourinary: deferred - Integumentary Integumentary: clear - Musculoskeletal Musculoskeletal: strength equal bilaterally - Neurologic Neurologic: CNII-XII intact, no focal deficits - Psychiatric Psychiatric: appropriate mood/affect - Labs CBC & Chem 7: 04/04/19 08:50 04/04/19 08:50 Labs: Abnormal lab results 04/03/19 04/03/19 04/04/19 Range/Units 01:18 18:23 08:50 WBC 2.0 L (4.5-11.0) K/mm3 RBC 1.93 L (3.65-5.03) M/mm3 Hgb 6.0 L (11.8-15.2) gm/dl Hct 17.9 L* (35.5-45.6) % RDW 17.8 H (13.2-15.2) % Plt Count 51 L (140-440) K/mm3 Seg Neutrophils # Man 1.4 L (1.8-7.7) K/mm3 Lymphocytes # (Manual) 0.6 L (1.2-5.4) K/mm3 BUN (9-20) mg/dL Glucose (75-100) mg/dL Total Creatine Kinase 48 L (55-170) units/L CK-MB (CK-2) 4.2 H (0.0-4.0) ng/mL CK-MB (CK-2) Rel Index 8.7 H (0-4) Troponin T 0.047 H (0.00-0.029) ng/mL Crossmatch See Detail 04/04/19 Range/Units 08:50 WBC (4.5-11.0) K/mm3 RBC (3.65-5.03) M/mm3 Hgb (11.8-15.2) gm/dl Hct (35.5-45.6) % RDW (13.2-15.2) % Plt Count (140-440) K/mm3 Seg Neutrophils # Man (1.8-7.7) K/mm3 Lymphocytes # (Manual) (1.2-5.4) K/mm3 BUN 28 H (9-20) mg/dL Glucose 166 H (75-100) mg/dL Total Creatine Kinase (55-170) units/L CK-MB (CK-2) (0.0-4.0) ng/mL CK-MB (CK-2) Rel Index (0-4) Troponin T (0.00-0.029) ng/mL Crossmatch
[2019-04-04] MEDS ORDERED: SODIUM CHLORIDE 0.9% 500 ML 500 ML IV SCH (13:42)
[2019-04-05] MEDS: IPRATROPIUM/ALBUTEROL SULFATE 3 ML AMPUL.NEB IH SCH ×2 (03:07→09:23)
[2019-04-05 05:41] LABS: Mean Corpuscular HGB Conc 33 % (32-34); Mean Corpuscular Volume 92 fl (84-94); Red Blood Count 1.98 M/mm3 (3.65-5.03); Red Cell Distribution Width 16.3 % (13.2-15.2)
[2019-04-05 05:56] LABS: Hematocrit 18.2 % (35.5-45.6); Hemoglobin 5.9 gm/dl (11.8-15.2); Platelet Count 45 K/mm3 (140-440)
[2019-04-05] MEDS ORDERED: SODIUM CHLORIDE 0.9% 500 ML 500 ML IV ONE (05:59)
--- NOTE | 2019-04-05 06:02 | Event Note ---
Date: 04/05/19 hgb 5.9 this am ( trending down from 6.0 yesterday 04/04/19) will order 2U PRBC. Follow up on post transfusion labs
[2019-04-05 09:07] VITALS: BP 129/39
[2019-04-05] MEDS: OMEGA-3 FATTY ACIDS/FISH OIL 1 GRAM CAP PO SCH (10:05)
[2019-04-05] MEDS: amLODIPine 5 MG TAB PO SCH (10:06)
[2019-04-05] MEDS: FUROSEMIDE 20 MG/2 ML INJ IV SCH (10:07)
[2019-04-05] MEDS: METOPROLOL SUCCINATE XL 100 MG TAB PO SCH (10:07)
[2019-04-05] MEDS: FLUTICASONE PROPIONATE NASAL SPRAY 16 GM NS SCH (10:14)
--- NOTE | 2019-04-05 12:16 | Discharge Summary ---
Providers - Providers Date of Admission: 04/03/19 03:16 Date of discharge: 04/05/19 (AMA) Attending physician: GEE LEYVA 04/03/19 05:52 Consult to Physician [CONS] Routine Comment: tre curtis/ jeramie Consulting Provider: LÁZARO BERG Physician Instructions: Reason For Exam: sob/LE edema 04/03/19 08:08 Consult to Physician [CONS] Routine Comment: pierre ortega/ chandler Consulting Provider: JUAN WALLACE Physician Instructions: Reason For Exam: mds 04/03/19 13:52 Physical Therapy Evaluation and Treat [CONS] Routine Comment: Reason For Exam: Weakness Primary care physician: MANJINDER HANNON Hospitalization Reason for admission: symptomatic anemia Condition: Poor Hospital course: 73-year-old male with history of recently diagnosed myelodysplastic syndrome, COPD and a current smoker, GERD, history of colon cancer with mets was seen in the emergency room for increasing shortness of breath and was found to be severely anemic and admitted for further management. He had multiple blood transfusions during his hospitalization and patient wanted to be discharged yesterday but because of his hemoglobin being 6.0 , I ordered 1 unit of blood transfusion and this morning, posttransfusion hemoglobin was 5.9. I had a long discussion with the patient his and his daughter as patient was insisting on being discharged and see his oncologist in the clinic. I was willing to discharge him if he is accepting to get 2 more units of blood prior to his discharge as his hemoglobin was critically low and I explained to him the dangers of low hemoglobin including PR and loss of consciousness. Patient refused any further transfusions and he signed out AGAINST MEDICAL ADVICE 1. History of myelodysplastic syndrome, anemia. The patient was on Procrit. The patient is due to start chemotherapy as an outpatient with Dr. Luong 2. History of colon cancer with mets in the liver. This was about 20 years ago. 3. Symptomatic Anemia secondary to myelodysplastic syndrome. At this post PRBC transfusion. Repeat hemoglobin and hematocrit this morning is still critically low and needs further transfusion 4. Leukopenia secondary to myelodysplastic syndrome. 5. Thrombocytopenia secondary to myelodysplastic syndrome. 6. Continue On oxygen support. 7. History of chronic obstructive pulmonary disease.-Not in exacerbation. He is a current smoker 8. History of hypertension.-Well-controlled 9. Acute congestive heart failure with preserved ejection fraction Cardiology has been following during his hospitalization Disposition: DC-07 LEFT AGAINST MED ADVICE Core Measure Documentation - Palliative Care Palliative Care/ Comfort Measures: Not Applicable - Core Measures Any of the following diagnoses?: heart failure - Heart Failure Discharge Requirements MARTY/ARB for LVSD if EF <40%: Not Applicable Reason for no MARTY/ARB: Patient refusal Beta carolyne at discharge: Yes Exam - Constitutional Vitals: Temp Pulse Resp BP Pulse Ox 97.5 F L 89 20 129/39 97 04/05/19 08:50 04/05/19 10:07 04/05/19 08:50 04/05/19 10:07 04/05/19 08:50 General appearance: Present: no acute distress - EENT Eyes: Present: PERRL, EOM intact ENT: hearing intact, clear oral mucosa - Neck Neck: Present: supple, normal ROM - Respiratory Respiratory effort: normal Respiratory: bilateral: CTA, diminished - Cardiovascular Rhythm: regular Heart Sounds: Present: S1 & S2 - Extremities Extremity abnormal: edema - Abdominal General gastrointestinal: Present: soft, non-tender Male genitourinary: Present: deferred - Rectal Rectal Exam: deferred, stool brown - Integumentary Integumentary: Present: clear - Musculoskeletal Musculoskeletal: strength equal bilaterally - Psychiatric Psychiatric: appropriate mood/affect - Neurologic Neurologic: no focal deficits Plan Activity: advance as tolerated Weight Bearing Status: Weight Bear as Tolerated Diet: regular, low fat, low salt Follow up with: NIESHA SWANSON MD [Referring] - 3-5 Days
== END 2019-04-05 11:18 | disposition left against medical advice (07) | DRG 811 ==
LOC: ED 22:58 → 2B-ACE 04-03 03:16
PROVIDERS: ADMIT Internal Medicine; ATTEND Internal Medicine
PROC: 30233N1 Transfusion of Nonautologous Red Blood Cells into Peripheral Vein, Percutaneous Approach (ICD-10-PCS; principal; 2019-04-03)
PROC: 5A09357 Assistance with Respiratory Ventilation, Less than 24 Consecutive Hours, Continuous Positive Airway Pressure (ICD-10-PCS; 2019-04-03)
DX: D46.9 Myelodysplastic syndrome, unspecified (principal); I50.31 Acute diastolic (congestive) heart failure; J90 Pleural effusion, not elsewhere classified; D61.818 Other pancytopenia; F17.210 Nicotine dependence, cigarettes, uncomplicated; J44.9 Chronic obstructive pulmonary disease, unspecified; Z53.29 Procedure and treatment not carried out because of patient's decision for other reasons; E11.9 Type 2 diabetes mellitus without complications; K21.9 Gastro-esophageal reflux disease without esophagitis; Z79.82 Long term (current) use of aspirin; Z79.51 Long term (current) use of inhaled steroids; Z79.899 Other long term (current) drug therapy; Z88.5 Allergy status to narcotic agent; Z91.041 Radiographic dye allergy status; Z85.038 Personal history of other malignant neoplasm of large intestine; Z85.05 Personal history of malignant neoplasm of liver; Z82.49 Family history of ischemic heart disease and other diseases of the circulatory system; Z79.84 Long term (current) use of oral hypoglycemic drugs
CPT/HCPCS: 36415; 36430; 71045; 80048; 80061; 82550; 82553; 83880; 84484; 85007; 85025; 85027; 85379; 85610; 85730; 86850; 86900; 86901; 86920; 93005; 93010; 94640; 94760; G0378; A9270-GY; J1940; J2920; J7040; P9016

== ENCOUNTER 2019-04-21 00:40 | Emergency (ER) | payer MEDICARE, OTHER ==
--- NOTE | 2019-04-21 01:02 | Emergency Department Report ---
ED CPR HPI - General Stated Complaint: CARDIAC ARREST Time Seen by Provider: 04/21/19 00:52 Source: EMS, old records reviewed Mode of arrival: Stretcher Limitations: Other (cardiac arrest) - History of Present Illness Initial Comments: Mr. Willard is a 73 yo male with hx of anemia, CHF, COPD, CKD, Atrial fibrillation, HTN, DM who presents in cardiorespiratory arrest. His found Mr. Willard sitting upright unresponsive. She called 911 with the notion that her was . Upon arrival, did not desire CPR. Paramedics proceeded to perform ACLS without the presence of a living will or advanced directive. Paramedics treated Mr. Almendarez with brandan airway insertion, epinephrine. Initial rhythm asystole developed to PEA. Mr. Willard was recently discharged one week ago according to EMS report from . MD Complaint: found unresponsive Place: home Bystander CPR Performed: No Initial Findings in the Field: unresponsive, other rhythm (asystole) ROSC in the Field: No Associated Injuries: No Treatments Prior to Arrival: other airway device (Brandan airway), epinephrine mgs # (3 doses of epinephrine) - Related Data Home Medications Medication Instructions Recorded Confirmed Last Taken Aspirin EC [Halfprin EC] 81 mg PO QDAY 08/05/15 04/03/19 10 Days Ago ~03/18/18 amLODIPine 5 mg PO DAILY 08/05/15 04/03/19 04/02/19 10:00 ALBUTEROL Inhaler(NF) [VENTOLIN 2 puff IH QDAY PRN 03/19/18 04/03/19 Unknown Inhaler(NF)] Fluticasone [Flonase] 1 spray NS QDAY 03/19/18 04/03/19 04/02/19 10:00 Fdlwpvzq-Lyxzykv-Uxyc 149-Hyal 1,500 mg PO BID 03/19/18 04/03/19 10 Days Ago [Glucosamine-Chondr Complex Tab] ~03/18/18 [place]-3 Fatty Acids/Fish Oil [Fish 1 each PO DAILY 03/19/18 04/03/19 04/02/19 10:00 Oil 1,000 mg Capsule] Umeclidinium Brm/Vilanterol Tr 1 each IH DAILY 03/19/18 04/03/19 04/02/19 10:00 [Anoro Ellipta 62.5-25 Mcg INH] Metoprolol Succinate [Toprol Xl] 100 mg PO DAILY 03/03/19 04/03/19 04/02/19 10 :00 Multivit-Min/FA/Lycopen/Lutein 1 each PO DAILY 03/03/19 04/03/19 Unknown [Centrum Silver Tablet] Cyanocobalamin (Vitamin B-12) 1,000 mcg IM 4XW 04/03/19 04/03/19 03/26/19 10:00 [Vitamin B-12] Furosemide [Lasix] 20 mg PO QDAY 04/03/19 04/03/19 04/02/19 10:00 Pantoprazole [Protonix] 40 mg PO QDAY 04/03/19 04/03/19 04/02/19 10:00 oxyCODONE /ACETAMINOPHEN [Percocet 1 tab PO Q6HR PRN 04/03/19 04/03/19 Unknown 5/325] Allergies Allergy/AdvReac Type Severity Reaction Status Date / Time morphine AdvReac HALLUCINATI Verified 03/19/18 16:36 ONS IVP DYE AdvReac Hives Uncoded 03/19/18 16:36 ED Review of Systems ROS: Stated complaint: CARDIAC ARREST Other details as noted in HPI Comment: Unobtainable due to pts medical conditions (cardiac arrest) ED Past Medical Hx - Past Medical History Previous Medical History?: Yes Hx Hypertension: Yes Hx Heart Attack/AMI: No Hx Diabetes: Yes (NO MEDS) Hx GERD: Yes Hx Liver Disease: Yes (remote hx colon cancer with liver met s/p lobectomy) Hx Renal Disease: No Hx Seizures: No Hx Kidney Stones: Yes Hx COPD: Yes Hx HIV: No - Social History Smoking Status: Never Smoker - Medications Home Medications: Home Medications Medication Instructions Recorded Confirmed Last Taken Type Aspirin EC [Halfprin EC] 81 mg PO QDAY 08/05/15 04/03/19 10 Days Ago History ~03/18/18 amLODIPine 5 mg PO DAILY 08/05/15 04/03/19 04/02/19 10:00 History ALBUTEROL Inhaler(NF) [VENTOLIN 2 puff IH QDAY PRN 03/19/18 04/03/19 Unknown History Inhaler(NF)] Fluticasone [Flonase] 1 spray NS QDAY 03/19/18 04/03/19 04/02/19 10:00 History Zwmljykf-Cdqenja-Ktrp 149-Hyal 1,500 mg PO BID 03/19/18 04/03/19 10 Days Ago History [Glucosamine-Chondr Complex Tab] ~03/18/18 [place]-3 Fatty Acids/Fish Oil [Fish 1 each PO DAILY 03/19/18 04/03/19 04/02/19 10:00 History Oil 1,000 mg Capsule] Umeclidinium Brm/Vilanterol Tr 1 each IH DAILY 03/19/18 04/03/19 04/02/19 10:00 History [Anoro Ellipta 62.5-25 Mcg INH] Metoprolol Succinate [Toprol Xl] 100 mg PO DAILY 03/03/19 04/03/19 04/02/19 10:00 History Multivit-Min/FA/Lycopen/Lutein 1 each PO DAILY 03/03/19 04/03/19 Unknown History [Centrum Silver Tablet] Cyanocobalamin (Vitamin B-12) 1,000 mcg IM 4XW 04/03/19 04/03/19 03/26/19 10:00 History [Vitamin B-12] Furosemide [Lasix] 20 mg PO QDAY 04/03/19 04/03/19 04/02/19 10:00 History Pantoprazole [Protonix] 40 mg PO QDAY 04/03/19 04/03/19 04/02/19 10:00 History oxyCODONE /ACETAMINOPHEN [Percocet 1 tab PO Q6HR PRN 04/03/19 04/03/19 Unknown History 5/325] ED Physical Exam - General Limitations: Other (cardiac arrest) General appearance: other (pale lifeless spontaneousmovementpale lifeless no spontaneous movement) - Head Head exam: Present: atraumatic, normocephalic - Eye Eye exam: Present: other (fixed dilated). Absent: scleral icterus, conjunctival injection - ENT ENT exam: Present: other (pale dry mucous membranes) - Neck Neck exam: Present: normal inspection - Respiratory Respiratory exam: Present: other (coarse equal breath sounds with ventilation no spontaneous breathing) - Cardiovascular Cardiovascular Exam: Present: other (no ausculated heart sounds or lung sounds no carotid pulse present) - GI/Abdominal GI/Abdominal exam: Present: soft, other (numerous old surgical scars). Absent: distended - Extremities Exam Extremities exam: Present: other (no trauma) - Neurological Exam Neurological exam: Present: other (lifeless) - Psychiatric Psychiatric exam: Present: other (lifeless) - Skin Skin exam: Present: pallor ED Medical Decision Making - Medical Decision Making Mr. Willard presented in cardiac arrest. Presented to the ED after 40 minutes of resuscitation ACLS per EMS. No return of spontaneous circulation had been achieved. We continued chest compressions upon arrival. For 5 seconds, PEA present on residential monitor which rapid deteriorated to asystole. TIme of 0045. Family members informed in person upon arrival. Critical care attestation.: If time is entered above; I have spent that time in minutes in the direct care of this critically ill patient, excluding procedure time. ED Disposition Clinical Impression: Cardiac arrest, CHF (congestive heart failure), COPD (chronic obstructive pu lmonary disease) Disposition: DC-20 Is pt being admited?: No Does the pt Need Aspirin: No Time of Disposition: 00:45
== END 2019-04-21 05:14 ==
LOC: ED 00:40
DX: I46.9 Cardiac arrest, cause unspecified (principal); I11.0 Hypertensive heart disease with heart failure; I50.9 Heart failure, unspecified; J44.9 Chronic obstructive pulmonary disease, unspecified; E11.9 Type 2 diabetes mellitus without complications; K21.9 Gastro-esophageal reflux disease without esophagitis; Z87.442 Personal history of urinary calculi; Z79.899 Other long term (current) drug therapy; Z91.041 Radiographic dye allergy status; Z88.8 Allergy status to other drugs, medicaments and biological substances
CPT/HCPCS: 92950; 99285